=== PATIENT | female | born 1990 | race African-American/Black ===

== ENCOUNTER 2016-08-26 17:10 | Outpatient (CLI) | payer MEDICAID ==
[2016-08-26 18:10] LABS: APPEARANCE,URINE SLIGHTLY-CLOUDY; BILIRUBIN,URINE NEGATIVE (NEGATIVE); GLUCOSE, URINE NEGATIVE (NEGATIVE); KETONES,URINE 20 mg/dL (NEGATIVE); LEUKOCYTE ESTERASE,URINE TRACE (NEGATIVE); NITRITE,URINE NEGATIVE (NEGATIVE); PROTEIN,URINE 30 mg/dL (NEGATIVE); URINE SPECIFIC GRAVITY 1.029; UROBILINOGEN,URINE NEGATIVE mg/dL (<2.0)
[2016-08-26 18:23] LABS: URINE BARBITURATES SCREEN NEGATIVE; URINE METHADONE SCREEN NEGATIVE; URINE PHENCYCLIDINE SCREEN NEGATIVE
--- NOTE | 2016-08-26 20:01 | L&D Flow Sheet ---
LD Flowsheet Datetime Report Generated by CPN: 08/26/2016 20:00 Datetime: 08/26/2016 19:49 Vital Signs NBP Sys/Linda/Mean (mmHg): 101 (QS system process) : 63 (QS system process) : 77 (QS system process) Pulse: 71 (QS system process) Datetime: 08/26/2016 19:39 Vital Signs NBP Sys/Linda/Mean (mmHg): 102 (QS system process) : 59 (QS system process) : 74 (QS system process) Pulse: 82 (QS system process) Datetime: 08/26/2016 18:59 Uterine Activity Monitor Mode: External; Palpation (Bee Shaye, RN) Frequency (min): none (Bee Shaye, RN) Resting Tone (Palpate): Relaxed (Bee Shaye, RN) Assessment A Monitor Mode: External US (Bee Shaye, RN) FHR Baseline Rate : 135 (Bee Shaye, RN) Variability: Moderate 6-25 bpm (Bee Shaye, RN) Accelerations: 15X15 (Bee Shaye, RN) Decelerations: None (Bee Shaye, RN) Datetime: 08/26/2016 18:31 Vital Signs NBP Sys/Linda/Mean (mmHg): 103 (QS system process) : 71 (QS system process) : 83 (QS system process) Pulse: 65 (QS system process) Datetime: 08/26/2016 18:30 Uterine Activity Monitor Mode: External; Palpation (Esme Yang, RNC) Frequency (min): x1 (Esme Yang, RNC) Quality: Mild (Esme Yang, RNC) Duration (sec): 120 (Esme Yang, RNC) Duration Criteria: Less than Two 120 Second Contractions (Esme Yang, RNC) Pattern: Normal: <= 5 Contractions in 10 Minutes (Esme Yang, RNC) Resting Tone (Palpate): Relaxed (Esme Yang, RNC) Assessment A Monitor Mode: External US (Seme Yang, RNC) FHR Baseline Rate : 135 (Esme Yang, RNC) Variability: Moderate 6-25 bpm (Esme Yang, RNC) Accelerations: 15X15 (Esme Yang, RNC) Decelerations: None (Esme Yang, RNC) Datetime: 08/26/2016 18:16 Vital Signs NBP Sys/Linda/Mean (mmHg): 106 (QS system process) : 70 (QS system process) : 84 (QS system process) Pulse: 66 (QS system process) Datetime: 08/26/2016 18:01 Vital Signs NBP Sys/Linda/Mean (mmHg): 109 (QS system process) : 65 (QS system process) : 83 (QS system process) Pulse: 86 (QS system process) Datetime: 08/26/2016 18:00 Uterine Activity Monitor Mode: External (Esme Yang, RNC) Frequency (min): x0 (Esme Yang, RNC) Quality: Mild (Esme Yang, RNC) Duration Criteria: Less than Two 120 Second Contractions (Esme Yang, RNC) Pattern: Normal: <= 5 Contractions in 10 Minutes (Esme Yang, RNC) Resting Tone (Palpate): Relaxed (Esme Yang, RNC) Assessment A Monitor Mode: External US (Esme Yang, RNC) FHR Baseline Rate : 135 (Esme Yang, RNC) Variability: Moderate 6-25 bpm (Esme Yang, RNC) Accelerations: 15X15 (Esme Yang, RNC) Decelerations: None (Esme Yang, RNC) Datetime: 08/26/2016 17:52 Communication Communication Comments: H. Jayme CNM at bedside (Bee Shaye, RN) Datetime: 08/26/2016 17:50 Frequency (min): pt unsure about contractions, states pressure since yesterday morning (Bee Shaye, RN) Pain Pain Scale: 4 (Bee Shaye, RN) Pain Presence: Constant (Bee Shaye, RN) Pain Type: Pressure (Bee Shaye, RN) Pain Location: Perineum (Bee Shaye, RN) Pain Relief Measures: Comfort Measures (Bee Shaye, RN) Pain Assessment Comments: pt states she is only able to urinate in small amounts and that the pressure is constant (Bee Shaye, RN) Vaginal Exam Membrane Status: Intact (Bee Shaye, RN) Vaginal Bleeding: None (Bee Shaye, RN) Maternal Assessment Level of Consciousness: Fully Conscious (Bee Shaye, RN) Headache: Denies (Bee Shaye, RN) Breath Sounds, Left: Clear and Equal (Bee Shaye, RN) Breath Sounds, Right: Clear and Equal (Bee Shaye, RN) Nausea/Vomiting: Denies (Bee Shaye, RN) RUQ Epigastric Pain: Denies (Bee Shaye, RN) Datetime: 08/26/2016 17:46 Vital Signs NBP Sys/Linda/Mean (mmHg): 104 (QS system process) : 69 (QS system process) : 81 (QS system process) Pulse: 68 (QS system process)
--- NOTE | 2016-08-26 20:50 | Non Stress Test Report ---
Non Stress Test Datetime Report Generated by CPN: 08/26/2016 20:50 DEMOGRAPHIC EGA NST: 34.4 INDICATION Indication for Study: Ordered by Provider Indication for Study (NST) Other: LC URINE RESULTS Urine Protein, NST: Positive Urine Ketones - NST: Positive Urine Glucose - NST: Negative Urine Blood - NST: Negative MONITORING Monitor Explained: Monitor Explained; Test Explained; Patient Verbalized Understanding Time on Monitor: 08/26/2016 17:45 Time off Monitor: 08/26/2016 20:20 NST Duration: 155 NST INTERVENTIONS NST Interventions: PO Hydration Physician Notified NST: H. Jayme CNM BABY A: [id number] BABY A Movement : Present Contraction Frequency : none FHR Baseline : 135 Accelerations : 15X15 Decelerations : None Variability : Moderate 6-25bpm NST Review: Meets Criteria for Reactive NST NST Review and Verified By : Camilla Olivares RN Results: Reactive NST REPORT Report Trigger: Send Report
--- NOTE | 2016-08-27 04:49 | L&D Flow Sheet ---
LD Flowsheet Datetime Report Generated by CPN: 08/27/2016 04:45 Datetime: 08/26/2016 20:20 Patient Care Comments: IV d/c and pt monitor d/c. pt up getting dressed (Rosemary Chalman, RN) Datetime: 08/26/2016 20:19 Vital Signs NBP Sys/Linda/Mean (mmHg): 100 (QS system process) : 67 (QS system process) : 79 (QS system process) Pulse: 82 (QS system process) Datetime: 08/26/2016 20:17 Vaginal Exam Dilatation (cm): 0.0 (Rosemary Olivares RN) Effacement (%): 50 (Rosemary Olivares RN) Station: -3 (Rosemary Olivares RN) Exam by: Camilla Olivares RN (Rosemary Olivares RN) Datetime: 08/26/2016 20:15 Uterine Activity Monitor Mode: External; Palpation (Rosemary Chalman, RN) Frequency (min): x1 (Rosemary Chalman, RN) Quality: Mild (Rosemary Chalman, RN) Duration (sec): 50 (Rosemary Chalman, RN) Pattern: Normal: <= 5 Contractions in 10 Minutes (Rosemary Chalman, RN) Resting Tone (Palpate): Relaxed (Rosemary Chalman, RN) Assessment A Monitor Mode: External US (Rosemary Enriquetaman, RN) FHR Baseline Rate : 145 (Rosemary Enriquetaman, RN) FHR Baseline Changes: No Baseline Change (Rosemary Olivares RN) Variability: Moderate 6-25 bpm (Rosemary Olivares RN) Accelerations: 15X15 (Rosemary Olviares RN) Decelerations: None (Rosemary Olivares, RN) Datetime: 08/26/2016 20:09 Vital Signs NBP Sys/Linda/Mean (mmHg): 101 (QS system process) : 63 (QS system process) : 74 (QS system process) Pulse: 70 (QS system process) Patient Care Comments: report to Dr. Torres. Provider reviewed strip and states that pt can have SVE and be s/c home if unchanged. (Rosemary Olivares RN) Datetime: 08/26/2016 20:04 Vital Signs NBP Sys/Linda/Mean (mmHg): 115 (QS system process) : 63 (QS system process) : 82 (QS system process) Pulse: 75 (QS system process) Datetime: 08/26/2016 20:00 Uterine Activity Monitor Mode: External; Palpation (Rosemary Chalman, RN) Frequency (min): none (Rosemary Chalman, RN) Assessment A Monitor Mode: External US (Rosemary Chalman, RN) FHR Baseline Rate : 145 (Rosemary Chalman, RN) FHR Baseline Changes: Return to Previous Baseline (Rosemary Chalman, RN) Variability: Moderate 6-25 bpm (Rosemary Chalman, RN) Accelerations: 15X15 (Rosemary Chalman, RN) Decelerations: None (Rosemary Chalman, RN) Datetime: 08/26/2016 19:58 Patient Care I/O Interventions: Up to BR (Rosemary Chalman, RN) Datetime: 08/26/2016 19:49 Vital Signs NBP Sys/Linda/Mean (mmHg): 101 (QS system process) : 63 (QS system process) : 77 (QS system process) Pulse: 71 (QS system process) Datetime: 08/26/2016 19:45 Uterine Activity Monitor Mode: External; Palpation (Rosemary Chalman, RN) Frequency (min): x1 (Rosemary Chalman, RN) Quality: Mild (Rosemary Chalman, RN) Duration (sec): 70 (Rosemary Chalman, RN) Pattern: Normal: <= 5 Contractions in 10 Minutes (Rosemary Chalman, RN) Resting Tone (Palpate): Relaxed (Rosemary Chalman, RN) Assessment A Monitor Mode: External US (Rosemary Chalman, RN) FHR Baseline Rate : 150 (Rosemary Chalman, RN) Variability: Moderate 6-25 bpm (Orsemary Chalman, RN) Accelerations: 15X15 (Rosemary Chalman, RN) Decelerations: None (Rosemary Chalman, RN) Datetime: 08/26/2016 19:39 Vital Signs NBP Sys/Linda/Mean (mmHg): 102 (QS system process) : 59 (QS system process) : 74 (QS system process) Pulse: 82 (QS system process) Datetime: 08/26/2016 19:30 Uterine Activity Monitor Mode: External; Palpation (Rosemary Chalman, RN) Frequency (min): occ (Rosemary Chalman, RN) Quality: Mild (Rosemary Chalman, RN) Duration (sec): 60-70 (Rosemary Chalman, RN) Pattern: Normal: <= 5 Contractions in 10 Minutes (Rosemary Chalman, RN) Resting Tone (Palpate): Relaxed (Rosemary Chalman, RN) Assessment A Monitor Mode: External US (Rosemary Chalman, RN) FHR Baseline Rate : 145 (Rosemary Chalman, RN) FHR Baseline Changes: No Baseline Change (Rosemary Chalman, RN) Variability: Moderate 6-25 bpm (Rosemary Chalman, RN) Accelerations: 15X15 (Rosemary Chalman, RN) Decelerations: None (Rosemary Chalman, RN) Datetime: 08/26/2016 19:20 Patient Care Comments: report from Nadeen Jayme, CNM. per provider pt to have IV 1000 ml LR bolus (Rosemary Chalman, RN) Datetime: 08/26/2016 18:59 Uterine Activity Monitor Mode: External; Palpation (Bee Shaye, RN) Frequency (min): none (Bee Shaye, RN) Resting Tone (Palpate): Relaxed (Bee Shaye, RN) Assessment A Monitor Mode: External US (Bee Shaye, RN) FHR Baseline Rate : 135 (Bee Shaye, RN) Variability: Moderate 6-25 bpm (Bee Shaye, RN) Accelerations: 15X15 (Bee Shaye, RN) Decelerations: None (Bee Shaye, RN) Datetime: 08/26/2016 18:31 Vital Signs NBP Sys/Linda/Mean (mmHg): 103 (QS system process) : 71 (QS system process) : 83 (QS system process) Pulse: 65 (QS system process) Datetime: 08/26/2016 18:30 Uterine Activity Monitor Mode: External; Palpation (Esme Yang, RNC) Frequency (min): x1 (Esme Yang, RNC) Quality: Mild (Esme Yang, RNC) Duration (sec): 120 (Esme Yang, RNC) Duration Criteria: Less than Two 120 Second Contractions (Esme Yang, RNC) Pattern: Normal: <= 5 Contractions in 10 Minutes (Esme Yang, RNC) Resting Tone (Palpate): Relaxed (Esme Yang, RNC) Assessment A Monitor Mode: External US (Esme Yang, RNC) FHR Baseline Rate : 135 (Esme Yang, RNC) Variability: Moderate 6-25 bpm (Esme Yang, RNC) Accelerations: 15X15 (Esme Yang, RNC) Decelerations: None (Esme Yang, RNC) Datetime: 08/26/2016 18:16 Vital Signs NBP Sys/Linda/Mean (mmHg): 106 (QS system process) : 70 (QS system process) : 84 (QS system process) Pulse: 66 (QS system process) Datetime: 08/26/2016 18:01 Vital Signs NBP Sys/Linda/Mean (mmHg): 109 (QS system process) : 65 (QS system process) : 83 (QS system process) Pulse: 86 (QS system process) Datetime: 08/26/2016 18:00 Uterine Activity Monitor Mode: External (Esme Yang, RNC) Frequency (min): x0 (Esme Soria, RNC) Quality: Mild (Esme Soria, RNC) Duration Criteria: Less than Two 120 Second Contractions (Esme Soria, RNC) Pattern: Normal: <= 5 Contractions in 10 Minutes (Esme Sorai, RNC) Resting Tone (Palpate): Relaxed (Esme Yang, RNC) Assessment A Monitor Mode: External US (Esme Soria, RNC) FHR Baseline Rate : 135 (Esmejudith Soria, RNC) Variability: Moderate 6-25 bpm (Esmejudith Soria, RNC) Accelerations: 15X15 (Esme Soria, RNC) Decelerations: None (Esmejudith Soria, RNC) Datetime: 08/26/2016 17:52 Communication Communication Comments: H. Jayme CNM at bedside (Bee Shaye, RN) Datetime: 08/26/2016 17:50 Frequency (min): pt unsure about contractions, states pressure since yesterday morning (Bee Shaye, RN) Pain Pain Scale: 4 (Bee Shaye, RN) Pain Presence: Constant (Bee Shaye, RN) Pain Type: Pressure (Bee Shaye, RN) Pain Location: Perineum (Bee Shaye, RN) Pain Relief Measures: Comfort Measures (Bee Shaye, RN) Pain Assessment Comments: pt states she is only able to urinate in small amounts and that the pressure is constant (Bee Shaye, RN) Membrane Status: Intact (Bee Shaye, RN) Vaginal Bleeding: None (Bee Shaye, RN) Maternal Assessment Level of Consciousness: Fully Conscious (Bee Shaye, RN) Headache: Denies (Bee Shaye, RN) Breath Sounds, Left: Clear and Equal (Bee Shaye, RN) Breath Sounds, Right: Clear and Equal (Bee Shaye, RN) Nausea/Vomiting: Denies (Bee Shaye, RN) RUQ Epigastric Pain: Denies (Bee Shaye, RN) Datetime: 08/26/2016 17:46 Vital Signs NBP Sys/Linda/Mean (mmHg): 104 (QS system process) : 69 (QS system process) : 81 (QS system process) Pulse: 68 (QS system process)
--- NOTE | 2016-08-27 04:49 | Antepartum Discharge Summary ---
Antepartum DC Datetime Report Generated by CPN: 08/27/2016 04:45 DIET/ACTIVITY/RESTRICTIONS Diet: Regular (08/26/2016 20:47:Rosemary Chalman, RN) Activity: Normal Activity (08/26/2016 20:47:Rosemary Marshall, RN) TEACHING/INSTRUCTIONS/REFERRALS Instructions Given To: pt (08/26/2016 20:47:Rosemary Olivares, RN) Instructions Understood: Patient Verbalized Understanding; Support Person Verbalized Understanding (08/26/2016 20:47:Rosemary Olivares RN) Referrals: None (08/26/2016 20:47:Rosemary Olivares RN) DISCHARGE INFORMATION Discharged AMA: No (08/26/2016 20:47:Rosemary Olivares RN) Discharged To: Home (08/26/2016 20:47:Rosemary Olivares RN) Discharge Provider Name: Torres (08/26/2016 20:47:Rosemary Olivares RN) Accompanied By: sig other (08/26/2016 20:47:Rosemary Olivares RN) Discharge Method: Ambulatory (08/26/2016 20:47:Rosemary Olivares RN) Condition: Stable (08/26/2016 20:47:Rosemary Olivares RN) FOLLOW UP INFORMATION Follow Up With: Other-Annotate (08/26/2016 20:47:Rosemary Olivares RN) Follow Up On: As Scheduled (08/26/2016 20:47:Rosemary Olivares RN) Comments: pt educated on pre term labor precautions and kick counts. pt instructed to return to hospital for SROM, decreased fm, bleeding like a period or s/sx of labor. Pt verbalized understanding and agreed to POC (08/26/2016 20:47:Rosemary Olivares RN)
--- NOTE | 2016-08-27 04:49 | L&D Current Admission ---
Current Admit Datetime Report Generated by CPN: 08/27/2016 04:45 ADMISSION INFORMATION Chief Complaint: pressure and not being able to close her legs (08/26/2016 17:50:Bee Cr RN) Chief Complaint: sharp lower abdominal pain, worse when walking. Pain 3-4/5. Patient states pain is sharp and occurs every 20 minutes or so and lasts for a few seconds. Pain began around 2300 last night (07/18/2016 09:28:Blanca Jansen RN)
--- NOTE | 2016-08-27 04:49 | L&D General Admission ---
General Admit Datetime Report Generated by CPN: 08/27/2016 04:45 INFORMATION Patient Age: 25 (07/18/2016 09:07:QS system process) EDC: 10/03/2016 00:00 (07/18/2016 09:22:Blanca Jansen RN) : 6 (07/18/2016 09:22:Blanca Jansen RN) Para: 4 (08/26/2016 20:47:Rosemary Olivares RN) Para: 4 (07/18/2016 09:22:Blanca Jansen RN) Baby, Number in Womb: 1 (08/26/2016 20:47:Rosemary Olivares RN) CARE Primary Raise Drill Operator: [facility] (07/18/2016 09:22:Blanca Jansen RN) Adequate Care: No (07/18/2016 09:22:Blanca Jansen RN) Height (in): 63 (08/26/2016 17:51:QS system process) Height (in): 63 (08/26/2016 17:45:QS system process) Height (in): 63 (08/26/2016 17:32:QS system process) Height (in): 63 (07/18/2016 09:17:QS system process) ALLERGIES Medication Allergy: No (07/18/2016 09:22:Blanca Jansen RN) Medication Allergies: No Known Allergies (08/26/2016) (08/26/2016 17:51:QS system process) Medication Allergies: No Known Allergies (07/18/2016) (07/18/2016 09:17:QS system process) Medication Allergies: No Known Allergies (02/09/2016) (07/18/2016 09:07:QS system process) Latex Allergy: No Latex Allergies (07/18/2016 09:22:Blanca Jansen RN) Food Allergies: denies (07/18/2016 09:22:Blanca Jansen RN) Environmental Allergies: denies (07/18/2016 09:22:Blanca Jansen RN) COMMUNICATION Primary Language: Georgian (07/18/2016 09:22:Blanca Jansen RN) Medical Tx Preferred Language: Georgian (07/18/2016 09:22:Blanca Jansen RN) DEMOGRAPHICS Address: [address] [place] [address], [address] [address] (07/18/2016 09:07:QS system process) Zipcode: [address] (07/18/2016 09:07:QS system process) Home (07/18/2016 09:07:QS system process) Work (07/18/2016 09:07:QS system process) SSN: [id number] (07/18/2016 09:07:QS system process) Next of Kin Name: THAIS ALVARENGA (07/18/2016 09:07:QS system process) Next of Kin (07/18/2016 09:07:QS system process) Next of Kin Relationship: OR (07/18/2016 09:07:QS system process) Date of : 1990 (07/18/2016 09:07:QS system process) Marital Status: Single (07/18/2016 09:07:QS system process) Sex: Female (07/18/2016 09:07:QS system process) Race: (07/18/2016 09:07:QS system process) Ethnicity: Non- or (07/18/2016 09:07:QS system process) Taoism: None (07/18/2016 09:07:QS system process) DRUG AND ALCOHOL USE Alcohol: No (07/18/2016 09:22:Blanca Jansen RN) Cigarettes: Current Some Day Smoker. [id number] (07/18/2016 09:22:Blanca Jansen RN) Cocaine: No (07/18/2016 09:22:Blanca Jansen RN) Other Illicit Drugs: No (07/18/2016 09:22:Blanca Jansen RN) VACCINE HISTORY Influenza Vaccine: No (07/18/2016 09:22:Blanca Jansen RN) Pneumococcal Vaccine: No (07/18/2016 09:22:Blanca Jansen RN) Tetanus Vaccine: No (07/18/2016 09:22:Blanca Jansen RN) Tdap Vaccine: No (07/18/2016 09:22:Blanca Jansen RN) Hepatitis B Vaccine: No (07/18/2016 09:22:Blanca Jansen RN) Senior Business Analyst: [facility] [facility] (07/18/2016 09:22:Blanca Jansen RN) Feeding Preference: Formula (07/18/2016 09:22:Blanca Jansen RN) Circumcision: Yes (07/18/2016 09:22:Blanca Jansen RN) Classes Attended: No (07/18/2016 09:22:Blanca Jansen RN) Tubal Ligation: Yes (07/18/2016 09:22:Blanca Jansen RN) Consent: N/A (07/18/2016 09:22:Blanca Jansen RN) Consent Signed: N/A (07/18/2016 09:22:Blanca Jansen RN) Pain Management Plans: Epidural (07/18/2016 09:22:Blanca Jansen RN) Plans for Labor and Delivery: None (07/18/2016 09:22:Blanca Jansen RN) Support Person: Jose Graham (07/18/2016 09:22:Blanca Jansen RN) Support Person Relationship: Significant Other (07/18/2016 09:22:Blanca Jansen RN) Cultural/Spritual Practice: No (07/18/2016 09:22:Blanca Jansen RN) Spir/Cult Dietary Needs: No (07/18/2016 09:22:Blanca Jansen RN) LIVING SITUATION/DISCHARGE PLAN Living Arrangements: House (07/18/2016 09:22:Blanca Jansen RN) Adequate Access to:: Electric; Heat; Refrigeration; Plumbing/Running water; Phone; Transportation (07/18/2016 09:22:Blanca Jansen RN) WIC Program: Yes (07/18/2016 09:22:Blanca Jansen RN) Discharge Office Runner Person: Jose (07/18/2016 09:22:Blanca Jansen RN) Person to Help after Discharge: Jose (07/18/2016 09:22:Blanca Jansen RN) Currently Using Commun Resources: No (07/18/2016 09:22:Blanca Jansen RN) Outside Agency/Measurement And Sensing Technician: No (07/18/2016 09:22:Blanca Jansen RN) Car Seat for Discharge: No (07/18/2016 09:22:Blanca Jansen RN) Adoption Requested: No (07/18/2016 09:22:Blanca Jansen RN) Pt Contact w/ Post : N/A (07/18/2016 09:22:Blanca Jansen RN) OB/PREVIOUS HISTORY History of Previous : No (07/18/2016 09:22:Blanca Jansen RN) History of Gestational Diabetes: No (07/18/2016 09:22:Blanca Jansen RN) History of PIH: No (07/18/2016 09:22:Blanca Jansen RN) History of Incompetent Cervix: No (07/18/2016 09:22:Blanca Jansen RN) History of Placenta Previa/Abrup: No (07/18/2016 09:22:Blanca Jansen RN) History of Macrosomia: No (07/18/2016 09:22:Blanca Jansen RN) History of IUGR: No (07/18/2016 09:22:Blanca Jansen RN) History of Hemorrhage: No (07/18/2016 09:22:Blanca Jansen RN) History of Loss/Stillborn: No (07/18/2016 09:22:Blanca Jansen RN) History of : No (07/18/2016 09:22:Blanca Jansen RN) History of D (Rh) Sensitization: No (07/18/2016 09:22:Blanca Jansen RN) History Recurrent Loss/Stillborn: No (07/18/2016 09:22:Blnaca Jansen RN) History Depression/PP Depression: Yes (07/18/2016 09:22:Blanca Jansen RN) History of Uterine Anomaly/MICHAEL: No (07/18/2016 09:22:Blanca Jansen RN) History of Infertility: No (07/18/2016 09:22:Blanca Jansen RN) History of ART Treatment: No (07/18/2016 09:22:Blanca Jansen RN) History of MICHAEL: No (07/18/2016 09:22:Blanca Jansen RN) MEDICAL HISTORY Med Hx Diabetes: No (07/18/2016 09:22:Blanca Jansen RN) Med Hx Hypertension: No (07/18/2016 09:22:Blanca Jansen RN) Med Hx Heart Disease: No (07/18/2016 09:22:Blanca Jansen RN) Med Hx Autoimmune Disorder: No (07/18/2016 09:22:Blanca Jansen RN) Med Hx Kidney Disease/UTI: No (07/18/2016 09:22:Blanca Jansen RN) Med Hx Neurologic/Epilepsy: No (07/18/2016 09:22:Blanca Jansen RN) Med Hx Psychiatric Disorders: No (07/18/2016 09:22:Blanca Jansen RN) Med Hx Hepatitis/Liver Disease: No (07/18/2016 09:22:Blanca Jansen RN) Med Hx Varicosities/Phlebitis: No (07/18/2016 09:22:Blanca Jansen RN) Med Hx Thyroid Dysfunction: No (07/18/2016 09:22:Blanca Jansen RN) Med Hx Trauma/Violence: No (07/18/2016 09:22:Blanca Jnasen RN) Med Hx Blood Transfusion: No (07/18/2016 09:22:Blanca Jansen RN) Med Hx Pulmonary (Asthma,TB): No (07/18/2016 09:22:Blanca Jansen RN) Med Hx Breast: No (07/18/2016 09:22:Blanca Jansen RN) Med Hx COMBAT SYSTEMS ENGINEER Surgery: No (07/18/2016 09:22:Blanca Jansen RN) Med Hx Hospitalization/Surgery: Yes (07/18/2016 09:22:Blanca Jansen RN) Med Hx Anesthetic Complications: No (07/18/2016 09:22:Blanca Jansen RN) Med Hx Abnormal Pap Smear: No (07/18/2016 09:22:Blanca Jansen RN) Other Medical Diseases: No (07/18/2016 09:22:Blanca Jansen, RN) Med Hx Significant Family Hx: No (07/18/2016 09:22:Blanca Jansen RN) Details of Med/Surg Hx: D_C: 2013 (07/18/2016 09:22:Blanca Jansen RN) INFECTIOUS HISTORY Inf Hx Gonorrhea: No (07/18/2016 09:22:Blanca Jansen RN) Inf Hx Chlamydia: No (07/18/2016 09:22:Blanca Jansen RN) Inf Hx Syphilis: No (07/18/2016 09:22:Blanca Jansen RN) Inf Hx HIV/AIDS: No (07/18/2016 09:22:Blanca Jansen RN) Inf Hx Human Papilloma Virus: No (07/18/2016 09:22:Blanca Jansen RN) Inf Hx Pt/Partner Genital Herpes: No (07/18/2016 09:22:Blanca Jansen RN) Inf Hx Tuberculosis/Exposure: No (07/18/2016 09:22:Blanca Jansen RN) Inf Hx Hepatitis B,C: No (07/18/2016 09:22:Blanca Jansen RN) Inf Hx Rash or Viral Illness: No (07/18/2016 09:22:Blanca Jansen RN) GENETIC HISTORY Gen Hx Age >=35 at TREVOR: No (07/18/2016 09:22:Blanca Jansen RN) Gen Hx Thalassemia: No (07/18/2016 09:22:Blanca Jansen RN) Gen Hx Congenital Heart Defect: No (07/18/2016 09:22:Blanca Jansen RN) Gen Hx Neural Tube Defect: No (07/18/2016 09:22:Blanca Jansen RN) Gen Hx Down's Syndrome: No (07/18/2016 09:22:Blanca Jansen RN) Gen Hx Grover-Sachs: No (07/18/2016 09:22:Blanca Jansen RN) Gen Hx Casimiro: No (07/18/2016 09:22:Blanca Jansen RN) Gen Hx Familial Dysautonomia: No (07/18/2016 09:22:Blanca Jansen RN) Gen Hx Sickle Cell Disease/Trait: No (07/18/2016 09:22:Blanca Jansen RN) Gen Hx Hemophilia/Blood Disorder: No (07/18/2016 09:22:Blanca Jansen RN) Gen Hx Muscular Dystrophy: No (07/18/2016 09:22:Blanca Jansen RN) Gen Hx Cystic Fibrosis: No (07/18/2016 09:22:Blanca Jansen RN) Gen Hx Huntingtons Chorea: No (07/18/2016 09:22:Blanca Jansen RN) Gen Hx Mental Retardation/Autism: No (07/18/2016 09:22:Blanca Jansen RN) Gen Hx Tested for Fragile X: No (07/18/2016 09:22:Blanca Jansen RN) Gen Hx Other Inher/Chromosomal: No (07/18/2016 09:22:Blanca Jansen RN) Gen Hx Maternal Metabolic DO: No (07/18/2016 09:22:Blanca Jansen RN) Gen Hx Pt Father or FOB Defect: No (07/18/2016 09:22:Blanca Jansen RN) Gen Hx Other Genetic History: No (07/18/2016 09:22:Blanca Jansen RN) Gen Hx Drugs/Meds since LMP: No (07/18/2016 09:22:Blanca Jansen RN)
--- NOTE | 2016-08-27 04:49 | L&D Discharge Summary ---
OB Discharge Summary Datetime Report Generated by CPN: 08/27/2016 04:45 DISCHARGE DIAGNOSIS Diagnosis/Symptoms: False Labor Gestation: 34.4 Number of Babies in Womb: 1 Parity: 4 DIET/ACTIVITY/RESTRICTIONS Diet: Regular Activity: Normal Activity TEACHING/INSTRUCTIONS/REFERRALS Instructions Given To: pt Instructions Understood: Patient Verbalized Understanding; Support Person Verbalized Understanding Referrals: None DISCHARGE INFORMATION Discharged AMA: No Discharged To: Home Discharge Provider Name: Torres Accompanied By: sig other Discharge Method: Ambulatory Condition: Stable FOLLOW UP INFORMATION Follow Up With: Other-Annotate Follow Up On: As Scheduled Comments: pt educated on pre term labor precautions and kick counts. pt instructed to return to hospital for SROM, decreased fm, bleeding like a period or s/sx of labor. Pt verbalized understanding and agreed to POC
--- NOTE | 2016-08-27 04:49 | L&D Admission Assessment ---
LD ADM ASMT Datetime Report Generated by CPN: 08/27/2016 04:45 WEIGHT Weight (lb): 167 (08/26/2016 17:32:QS system process) Weight (kg): 75.9 (08/26/2016 17:32:QS system process) BMI: 29.6 (08/26/2016 17:32:QS system process) PAIN Pain Scale: 4 (08/26/2016 17:50:Bee Cr RN) Pain Presence: Constant (08/26/2016 17:50:Bee Cr RN) Pain Type: Pressure (08/26/2016 17:50:Bee Cr RN) Pain Location: Perineum (08/26/2016 17:50:Bee Cr RN) Pain Related to Contraction: Unsure (08/26/2016 17:50:Bee Cr RN) Pain Comments: pt states she is only able to urinate in small amounts and that the pressure is constant (08/26/2016 17:50:Bee Cr RN) CONTRACTIONS Frequency (min): x1 (08/26/2016 20:15:Rosemary Olivares RN) Frequency (min): none (08/26/2016 20:00:Rosemary Olivares RN) Frequency (min): x1 (08/26/2016 19:45:Rosemary Olivares RN) Frequency (min): occ (08/26/2016 19:30:Rosemary Olivares RN) Frequency (min): none (08/26/2016 18:59:Bee Cr RN) Frequency (min): x1 (08/26/2016 18:30:ALVIN Ribera) Frequency (min): x0 (08/26/2016 18:00:ALVIN Ribera) Frequency (min): pt unsure about contractions, states pressure since yesterday morning (08/26/2016 17:50:Bee Cr RN) Duration (sec): 50 (08/26/2016 20:15:Rosemary Olivares RN) Duration (sec): 70 (08/26/2016 19:45:Rosemary Olivares RN) Duration (sec): 60-70 (08/26/2016 19:30:Rosemary Olivares RN) Duration (sec): 120 (08/26/2016 18:30:ALVIN Ribera) Quality: Mild (08/26/2016 20:15:Rosemary Olivares RN) Quality: Mild (08/26/2016 19:45:Rosemary Olivares RN) Quality: Mild (08/26/2016 19:30:Rosemary Olivares RN) Quality: Mild (08/26/2016 18:30:ALVIN Ribera) Quality: Mild (08/26/2016 18:00:ALVIN Ribera) Pattern: Normal: <= 5 Contractions in 10 Minutes (08/26/2016 20:15:Rosemary Olivares RN) Pattern: Normal: <= 5 Contractions in 10 Minutes (08/26/2016 19:45:Rosemary Olivares RN) Pattern: Normal: <= 5 Contractions in 10 Minutes (08/26/2016 19:30:Rosemary Olivares RN) Pattern: Normal: <= 5 Contractions in 10 Minutes (08/26/2016 18:30:ALVIN Ribera) Pattern: Normal: <= 5 Contractions in 10 Minutes (08/26/2016 18:00:ALVIN Ribera) Resting Tone [place]: Relaxed (08/26/2016 20:15:Rosemary Olivares RN) Resting Tone [place]: Relaxed (08/26/2016 19:45:Rosemary Olivares RN) Resting Tone [place]: Relaxed (08/26/2016 19:30:Rosemary Olivares RN) Resting Tone [place]: Relaxed (08/26/2016 18:59:Bee rC RN) Resting Tone [place]: Relaxed (08/26/2016 18:30:ALVIN Ribera) Resting Tone [place]: Relaxed (08/26/2016 18:00:ALVIN Ribera) VAGINAL EXAM Dilatation (cm): 0.0 (08/26/2016 20:17:Rosemary Olivares RN) Effacement (%): 50 (08/26/2016 20:17:Rosemary Olivares RN) Station: -3 (08/26/2016 20:17:Rosemary Olivares RN) Membranes Status: Intact (08/26/2016 17:50:Bee Cr RN) NEURO Level of Consciousness: Fully Conscious (08/26/2016 17:50:Bee Cr RN) Headache: Denies (08/26/2016 17:50:Bee Cr RN) Dizziness: No (08/26/2016 17:50:Bee Cr, RN) Blurred Vision: No (08/26/2016 17:50:Bee Cr, RN) Extremity Numbness/Tingling : None (08/26/2016 17:50:Bee Cr RN) Extremity Movement: Full Range of Motion (08/26/2016 17:50:Bee Cr RN) CARDIOVASCULAR Heart Rhythm: Regular (08/26/2016 17:50:Bee Shaye, RN) Nailbeds: [place] (08/26/2016 17:50:Bee Shaye, RN) Capillary Refill: Less than 3 Seconds (08/26/2016 17:50:Bee Shaye, RN) Lower Extremities Edema: None (08/26/2016 17:50:Bee Shaye, RN) Lower Extremities Edema Degree: None (08/26/2016 17:50:Bee Shaye, RN) Upper Extremities Edema: None (08/26/2016 17:50:Bee Shaye, RN) Upper Extremities Edema Degree: None (08/26/2016 17:50:Bee Shaye, RN) Facial Edema: None (08/26/2016 17:50:Bee Shaye, RN) RESPIRATORY Respiratory Effort: Unlabored; Regular Rhythm; Equal Expansion (08/26/2016 17:50:Bee Shaye, RN) Breath Sounds, Left: Clear and Equal (08/26/2016 17:50:Bee Shaye, RN) Breath Sounds, Right: Clear and Equal (08/26/2016 17:50:Bee Shaye, RN) Cough Productivity: None (08/26/2016 17:50:Bee Shaye, RN) GASTROINTESTINAL Nausea/Vomiting: Denies (08/26/2016 17:50:Bee Cr, AARON) Bowel Sounds: Normoactive (08/26/2016 17:50:Bee Cr RN) RUQ Epigastric Pain: Denies (08/26/2016 17:50:Bee Cr RN) Bowel Patterns: Soft, Formed Stool (08/26/2016 17:50:Bee Cr RN) Hemorrhoids: None (08/26/2016 17:50:Bee Cr RN) Diet Type: Regular diet (08/26/2016 17:50:Bee Cr RN) Last Meal: 08/26/2016 15:00 (08/26/2016 17:50:Bee Cr RN) GENITOURINARY Bladder: Nondistended (08/26/2016 17:50:Bee Cr, AARON) Frequency of Urination: No (08/26/2016 17:50:Bee Cr, RN) Urination Burning: No (08/26/2016 17:50:Bee Cr RN) CVA Tenderness: No (08/26/2016 17:50:Bee Cr RN) Vaginal Bleeding: None (08/26/2016 17:50:Bee Cr RN) Vaginal Discharge Amount: None (08/26/2016 17:50:Bee Cr RN) Vaginal Discharge Color: N/A (08/26/2016 17:50:Bee Cr, AARON) INTEGUMENTARY Skin Color: Normal for Race (08/26/2016 17:50:Bee Cr RN) Skin Temperature: Warm (08/26/2016 17:50:Bee Cr RN) Skin Moisture: Dry (08/26/2016 17:50:Bee Cr RN) MARY SKIN ASSESSMENT Mary Scale Sensory Perception: No Impairment- Responds to verbal commands. Has no sensory deficit which would limit ability to feel or voice pain or discomfort (08/26/2016 17:50:Bee Cr RN) Mary Scale Moisture: Rarely Moist- Skin is usually dry. Linen only requires changing at routine intervals (08/26/2016 17:50:Bee Cr RN) Mary Scale Activity: Walks Frequently- Walks outside the room at least twice a day and inside room at least every 2 hours during the day. (08/26/2016 17:50:Bee Cr RN) Mary Scale Mobility: No Limitations- Makes major and frequent changes in position without assistance (08/26/2016 17:50:Bee Cr RN) Mary Scale Nutrition: Excellent- Eats most of every meal. Never refuses a meal. Usually eats a total of 4 or more servings of meat and dairy products. Occasionally eats between meals. Does not require supplementation (08/26/2016 17:50:Bee Cr RN) Mary Scale Friction and Shear: No Apparent Problem- Moves in bed and in chair independently and has sufficient muscle strength to lift up completely during move. Maintains good position in bed or chair at all times (08/26/2016 17:50:Bee Cr RN) Mary Scale Total: 23 (08/26/2016 17:50:QS system process) Mary Scale Risk: No Risk of Pressure Ulcer Noted at this Time (08/26/2016 17:50:QS system process) SUPPORT Family Support: Significant Other supportive, at bedside frequently (08/26/2016 17:50:Bee Cr RN) Emotional State: Calm/Relaxed (08/26/2016 17:50:Bee Cr RN) SAFETY Call [facility] Within Reach: Yes (08/26/2016 17:50:Bee Cr RN) Side Rails Up: Yes (08/26/2016 17:50:Bee Cr RN) Bed Wheels Locked: Yes (08/26/2016 17:50:Bee Cr RN) Arm Bands Present: Yes (08/26/2016 17:50:Bee Cr RN) Isolation: [place] (08/26/2016 17:50:Bee Cr RN) BABY A FHR Baseline Rate (bpm) Baby A: 145 (08/26/2016 20:15:Rosemary Olivares RN) FHR Baseline Rate (bpm) Baby A: 145 (08/26/2016 20:00:Rosemary Olivares RN) FHR Baseline Rate (bpm) Baby A: 150 (08/26/2016 19:45:Rosemary Olivares RN) FHR Baseline Rate (bpm) Baby A: 145 (08/26/2016 19:30:Rosemary Olivares RN) FHR Baseline Rate (bpm) Baby A: 135 (08/26/2016 18:59:Bee Cr RN) FHR Baseline Rate (bpm) Baby A: 135 (08/26/2016 18:30:ALVIN Ribera) FHR Baseline Rate (bpm) Baby A: 135 (08/26/2016 18:00:ALVIN Ribera) Variability Baby A: Moderate 6-25 bpm (08/26/2016 20:15:Rosemary Olivares RN) Variability Baby A: Moderate 6-25 bpm (08/26/2016 20:00:Rosemary Olivares RN) Variability Baby A: Moderate 6-25 bpm (08/26/2016 19:45:Rosemary Olivares RN) Variability Baby A: Moderate 6-25 bpm (08/26/2016 19:30:Rosemary Olivares RN) Variability Baby A: Moderate 6-25 bpm (08/26/2016 18:59:Bee Cr RN) Variability Baby A: Moderate 6-25 bpm (08/26/2016 18:30:ALVIN Ribera) Variability Baby A: Moderate 6-25 bpm (08/26/2016 18:00:ALVIN Ribera) Accelerations Baby A: 15X15 (08/26/2016 20:15:Rosemary Olivares RN) Accelerations Baby A: 15X15 (08/26/2016 20:00:Rosemary Olivares RN) Accelerations Baby A: 15X15 (08/26/2016 19:45:Rosemary Olivares RN) Accelerations Baby A: 15X15 (08/26/2016 19:30:Rosemary Olivares RN) Accelerations Baby A: 15X15 (08/26/2016 18:59:Bee Cr RN) Accelerations Baby A: 15X15 (08/26/2016 18:30:ALVIN Ribera) Accelerations Baby A: 15X15 (08/26/2016 18:00:ALVIN Ribera) Decelerations Baby A: None (08/26/2016 20:15:Rosemary Olivares RN) Decelerations Baby A: None (08/26/2016 20:00:Rosemary Olivares RN) Decelerations Baby A: None (08/26/2016 19:45:Rosemary Olivares RN) Decelerations Baby A: None (08/26/2016 19:30:Rosemary Olivares RN) Decelerations Baby A: None (08/26/2016 18:59:Bee Cr RN) Decelerations Baby A: None (08/26/2016 18:30:ALVIN Ribera) Decelerations Baby A: None (08/26/2016 18:00:ALVIN Ribera)
== END 2016-08-26 21:14 | disposition home or self-care (01) ==
LOC: LC 17:10
PROVIDERS: ATTEND Obstetrics & Gynecology
PROC: 4A1HXCZ Monitoring of Products of Conception, Cardiac Rate, External Approach (ICD-10-PCS; principal; 2016-08-26)
DX: O47.03 False labor before 37 completed weeks of gestation, third trimester (principal); Z3A.34 34 weeks gestation of pregnancy
CPT/HCPCS: 59025; 87086; 81001; 80307; G0480 ×2

== ENCOUNTER 2016-09-27 14:12 | Inpatient (IN) | payer MEDICAID ==
[2016-09-27 15:07] LABS: APPEARANCE,URINE CLEAR; BILIRUBIN,URINE NEGATIVE (NEGATIVE); GLUCOSE, URINE NEGATIVE (NEGATIVE); KETONES,URINE NEGATIVE (NEGATIVE); LEUKOCYTE ESTERASE,URINE NEGATIVE (NEGATIVE); NITRITE,URINE NEGATIVE (NEGATIVE); PROTEIN,URINE NEGATIVE (NEGATIVE); URINE SPECIFIC GRAVITY 1.005; UROBILINOGEN,URINE NEGATIVE mg/dL (<2.0)
[2016-09-27 15:13] LABS: AMNISURE (ROM) NEGATIVE (NEGATIVE)
[2016-09-27 15:23] LABS: URINE BARBITURATES SCREEN NEGATIVE; URINE METHADONE SCREEN NEGATIVE; URINE OPIATES LOW NEGATIVE; URINE PHENCYCLIDINE SCREEN NEGATIVE
--- NOTE | 2016-09-27 16:01 | L&D Flow Sheet ---
LD Flowsheet Datetime Report Generated by CPN: 09/27/2016 16:00 Datetime: 09/27/2016 15:28 Communication Communication Comments: Monitors removed for pt to go to U/S (Eugenia Bennett, RN) Datetime: 09/27/2016 15:24 Vital Signs NBP Sys/Linda/Mean (mmHg): 105 (QS system process) : 74 (QS system process) : 83 (QS system process) Pulse: 89 (QS system process) Datetime: 09/27/2016 14:58 Uterine Activity Frequency (min): pt states 5-10 minutes apart (Eugenia Bennett, RN) Pain Pain Scale: 3 (Eugenia Bennett, RN) Pain Presence: Intermittent (Eugenia Bennett, RN) Pain Type: Contraction (Eugenia Bennett, RN) Pain Location: Abdomen (Eugenia Bennett, RN) Vaginal Bleeding: None (Eugenia Bennett, RN) Maternal Assessment Level of Consciousness: Fully Conscious (Eugenia Bennett, RN) DTR's/Clonus: DTRs 2+; No Clonus (Eugenia Donald, RN) Headache: Denies (Eugenia Donald, RN) Breath Sounds, Left: Clear and Equal (Eugenia Donald, RN) Breath Sounds, Right: Clear and Equal (Eugenia Donald, RN) Nausea/Vomiting: Denies (Eugenia Bennett, RN) RUQ Epigastric Pain: Denies (Eugenia Donald, RN) Teaching Instructional Method: Verbal; Patient Instructed; Family/Support Person Instructed; Verbalized Understanding (Eugenia Bennett RN) Plan of Care: Plan of Care Discussed (Eugenia Bennett RN) Unit Routine: [place] to Room; Call [facility]; Bed; Handwashing; Monitoring; Bathroom Privileges (Eugenia Bennett RN) Datetime: 09/27/2016 14:54 Vital Signs NBP Sys/Linda/Mean (mmHg): 110 (QS system process) : 75 (QS system process) : 87 (QS system process) Pulse: 77 (QS system process) Respirations: 16 (Eugenia Bennett RN) Temperature (F): 98.4 (Eugenia Bennett, RN) Temperature (C): 36.9 (QS system process) Datetime: 09/27/2016 14:45 Vaginal Exam Dilatation (cm): 3.5 (Eugenia Bennett RN) Effacement (%): 50 (Eugenia Bennett RN) Station: -2 (Eugenia Bennett RN) Exam by: Eagle Stacy CNM (Eugenia Bennett RN) Datetime: 09/27/2016 14:40 Communication Communication Comments: Amnisure, GBS, GC/Chlam, wet prep collected and sent (Eugenia Bennett RN)
[2016-09-27 16:39] LABS: CHLAM PCR NOT DETECTED (NOT DETECT)
[2016-09-27] MEDS ORDERED: PENICILLIN G POTASSIUM 5,000,000 UNIT in DEXTROSE 5%-WATER 100 ML IV ONE (17:25)
--- NOTE | 2016-09-27 18:01 | L&D Flow Sheet ---
LD Flowsheet Datetime Report Generated by CPN: 09/27/2016 18:00 Datetime: 09/27/2016 17:55 NBP Sys/Linda/Mean (mmHg): 105 (QS system process) : 70 (QS system process) : 82 (QS system process) Pulse: 70 (QS system process) Datetime: 09/27/2016 17:35 Procedures: Consents Signed (Eugenia Bennett, RN) Datetime: 09/27/2016 17:30 Monitor Mode: External (Eugenia Bennett, RN) Frequency (min): 5-7 (Eugenia Bennett, RN) Quality: Mild (Eugenia Bennett, RN) Duration (sec): 80-100 (Eugenia Bennett, RN) Resting Tone (Palpate): Relaxed (Eugenia Bennett, RN) Monitor Mode: External US (Eugenia Bennett, RN) FHR Baseline Rate : 135 (Eugenia Bennett, RN) Variability: Moderate 6-25 bpm (Eugeniacas Bennett, RN) Accelerations: 15X15 (Eugeniacas Bennett, RN) Decelerations: None (Eugenia Bennett, RN) Datetime: 09/27/2016 17:24 NBP Sys/Linda/Mean (mmHg): 107 (QS system process) : 69 (QS system process) : 81 (QS system process) Pulse: 81 (QS system process) Datetime: 09/27/2016 17:16 IV/Blood Work: IV Started; IV Bolus Started (Eugeniacas Bennett, RN) Datetime: 09/27/2016 17:00 Monitor Mode: External; Palpation (Esme Yang, RNC) Frequency (min): 3-7 (Esme Yang, RNC) Quality: Mild (Esme Yang, RNC) Duration (sec): 50-80 (Esme Yang, RNC) Duration Criteria: Less than Two 120 Second Contractions (Esme Yang, RNC) Pattern: Normal: <= 5 Contractions in 10 Minutes (Esme Yang, RNC) Resting Tone (Palpate): Relaxed (Esme Yang, RNC) Monitor Mode: External US (Esme Yang, RNC) FHR Baseline Rate : 135 (Esme Yang, RNC) Variability: Moderate 6-25 bpm (Esme Yang, RNC) Accelerations: 15X15 (Esme Yang, RNC) Decelerations: None (Esme Yang, RNC) Datetime: 09/27/2016 16:56 NBP Sys/Linda/Mean (mmHg): 109 (QS system process) : 82 (QS system process) : 91 (QS system process) Pulse: 84 (QS system process) Datetime: 09/27/2016 16:47 Communication Comments: Eagle Stacy CNM at bedside discussing POC for IOL for growth restriction. Explained risks and benefits. Pt verbalizes understanding (Eugenia Bennett RN) Datetime: 09/27/2016 16:30 Monitor Mode: External; Palpation (ALVIN Ribera) Frequency (min): 5-7 (ALVIN Ribera) Quality: Mild (ALVIN Ribera) Duration (sec): 60-90 (ALVIN Ribera) Duration Criteria: Less than Two 120 Second Contractions (ALVIN Ribera) Pattern: Normal: <= 5 Contractions in 10 Minutes (Esme Soria, RNC) Resting Tone (Palpate): Relaxed (Esme Soria, RNC) FHR Baseline Rate : 135 (Esme Soria, RNC) Variability: Moderate 6-25 bpm (Esme Yang, RNC) Accelerations: 15X15 (Esme Yang, RNC) Decelerations: None (Esme Yang, RNC) Datetime: 09/27/2016 16:24 NBP Sys/Linda/Mean (mmHg): 109 (QS system process) : 73 (QS system process) : 86 (QS system process) Pulse: 89 (QS system process) Datetime: 09/27/2016 16:16 Communication Comments: Pt returned to unit from U/S (Eugenia Bennett RN)
[2016-09-27] MEDS ORDERED: PENICILLIN G-K 5 MILLION UNIT VIAL ONE ×2 (18:18→22:13)
[2016-09-27] MEDS ORDERED: OXYTOCIN/NORMAL SALINE 0 UNIT/0 ML RTUINJ ONE (18:18)
[2016-09-27] MEDS: OXYTOCIN/NORMAL SALINE 1,000 ML IV PRN (18:34)
[2016-09-27 18:55] LABS: HEMATOCRIT 30.3 % (36.0-47.0); HEMOGLOBIN 9.8 g/dL (12.0-15.5); HGB HCT DIFFERENCE -0.9; MEAN CORPUSCULAR HEMOGLOBIN 22.7 pg (27.0-33.4); MEAN CORPUSCULAR HGB CONC 32.2 g/dL (32.0-36.0); MEAN CORPUSCULAR VOLUME 71 fl (80-97); RED CELL DISTRIBUTION WIDTH 15.6 % (11.5-14.0)
--- NOTE | 2016-09-27 20:00 | L&D Flow Sheet ---
LD Flowsheet Datetime Report Generated by CPN: 09/27/2016 20:00 Datetime: 09/27/2016 19:54 NBP Sys/Linda/Mean (mmHg): 112 (QS system process) : 68 (QS system process) : 87 (QS system process) Pulse: 75 (QS system process) Datetime: 09/27/2016 19:45 Respirations: 18 (Ivon Fields) Monitor Mode: External; Palpation (Ivon Fields) Monitor Interventions for UA: Strum Adjusted (Ivon Fields) Frequency (min): 5-6 (Ivon Fields) Quality: Mild/Moderate (Ivon Fields) Duration (sec): 40-60 (Ivon Fields) Resting Tone (Palpate): Relaxed (Ivon Fields) Monitor Mode: External US (Ivon Fields) Monitor Interventions for FHR: Ultrasound Adjusted (Ivon Fields) FHR Baseline Rate : 140 (Ivon Fields) Variability: Moderate 6-25 bpm (Ivon Fields) Accelerations: 15X15 (Ivon Fields) Decelerations: None (Ivon Fields) Pitocin (milliunit): Pitocin Increased to (milliunits) @ (Annotations: 8) (Ivon Fields) Patient Position/Activity: Left Lateral (Ivon Fields) Datetime: 09/27/2016 19:31 Comments: rn at the bedside for fhr monitor adjustmernt and maternal repositioning (Ivon Fields) Datetime: 09/27/2016 19:30 Respirations: 18 (Ivon Fields) Monitor Mode: External; Palpation (Ivon Fields) Monitor Interventions for UA: Strum Adjusted (Ivon Fields) Frequency (min): 4-7 (Ivon Fields) Quality: Mild/Moderate (Ivon Fields) Duration (sec): 60-70 (Ivon Fields) Resting Tone (Palpate): Relaxed (Ivon Fields) FHR Baseline Changes: Unable to Determine (Ivon Fields) Pitocin (milliunit): Pitocin Increased to (milliunits) @ (Annotations: 6) (Ivon Fields) Patient Position/Activity: Left Lateral (Ivon Fields) Datetime: 09/27/2016 19:23 Communication Comments: Bedside report given to Camilla Fields RN (Eugenia Bennett RN) Datetime: 09/27/2016 19:21 Patient Care Comments: patient up to the restroom (Ivon Fields) Datetime: 09/27/2016 19:15 Respirations: 18 (Ivon Fields) Monitor Mode: External; Palpation (Ivon Fields) Monitor Interventions for UA: Strum Adjusted (Ivon Fields) Frequency (min): 4-5 (Ivon Fields) Quality: Mild/Moderate (Ivon Fields) Duration (sec): 60-70 (Ivon Fields) Resting Tone (Palpate): Relaxed (Ivon Fields) Monitor Mode: External US (Ivon Fields) Monitor Interventions for FHR: Ultrasound Adjusted (Ivon Fields) FHR Baseline Rate : 145 (Ivon Fields) Variability: Moderate 6-25 bpm (Ivon Fields) Accelerations: 15X15 (Ivon Fields) Decelerations: None (Ivon Fields) Pitocin (milliunit): Pitocin Remains (milliunits) @ (Annotations: 4) (Ivon Fields) Patient Position/Activity: Left Tilt (Ivon Fields) Datetime: 09/27/2016 19:00 Monitor Mode: External; Palpation (Eugenia Bennett RN) Quality: Mild (Eugenia Bennett RN) Resting Tone (Palpate): Relaxed (Eugenia Bennett RN) Contraction Comments: contractions not tracing on monitor (Eugenia Bennett RN) Monitor Mode: External US (Eugenia Bennett RN) FHR Baseline Rate : 135 (Eugenia Bennett RN) Variability: Moderate 6-25 bpm (Eugenia Bennett RN) Accelerations: 15X15 (Eugenia Bennett RN) Decelerations: None (Eugenia Bennett RN) Pitocin (milliunit): Pitocin Increased to (milliunits) @ 4 (Eugenia Bennett RN) Datetime: 09/27/2016 18:54 NBP Sys/Linda/Mean (mmHg): 128 (QS system process) : 86 (QS system process) : 101 (QS system process) Pulse: 70 (QS system process) Datetime: 09/27/2016 18:45 Monitor Mode: External (Eugenia Bennett RN) Resting Tone (Palpate): Relaxed (Eugenia Bennett RN) Contraction Comments: contractions not tracing on monitor (Eugenia Bennett RN) Monitor Mode: External US (Eugenia Bennett RN) FHR Baseline Rate : 135 (Eugenia Bennett RN) Variability: Moderate 6-25 bpm (Eugenia Bennett RN) Accelerations: 15X15 (Eugenia Bennett RN) Decelerations: None (Eugenia Bennett RN) Pitocin (milliunit): Pitocin Remains (milliunits) @ 2 (Eugenia Bennett RN) Datetime: 09/27/2016 18:35 I/O Interventions: Up to BR (Eugenia Bennett RN) Datetime: 09/27/2016 18:34 Antibiotics: Penicillin IV (Units) @ [id number] (Eugenia Bennett RN) Datetime: 09/27/2016 18:30 Monitor Mode: External; Palpation (Eugenia Bennett RN) Frequency (min): 5-7 (Eugenia Bennett RN) Quality: Mild (Eugenia Bennett RN) Duration (sec): 80-90 (Eugenia Bennett RN) Resting Tone (Palpate): Relaxed (Eugenia Bennett RN) Monitor Mode: External US (Eugenia Bennett RN) FHR Baseline Rate : 145 (Eugenia Bennett RN) Variability: Moderate 6-25 bpm (Eugenia Bennett RN) Accelerations: 15X15 (Eugenia Bennett RN) Decelerations: None (Eugenia Bennett RN) Pitocin (milliunit): Pitocin Started (milliunits) @ 2; Pitocin 20 Units in 1000ml NS (Eugenia Bennett RN) Datetime: 09/27/2016 18:25 Monitor Interventions for FHR: Ultrasound Adjusted (Eugenia Bennett, RN) Datetime: 09/27/2016 18:24 NBP Sys/Linda/Mean (mmHg): 112 (QS system process) : 73 (QS system process) : 88 (QS system process) Pulse: 72 (QS system process) Datetime: 09/27/2016 18:01 Monitor Interventions for UA: Strum Adjusted (Eugenia Bennett RN) Monitor Interventions for FHR: Ultrasound Adjusted (Eugenia Bennett RN) Comments: pt sitting straight up. tracing maternal (Eugenia Bennett RN) Datetime: 09/27/2016 18:00 Monitor Mode: External (Eugenia Bennett RN) Frequency (min): 5-6 (Eugenia Bennett RN) Quality: Mild (Eugenia Bennett RN) Duration (sec): 80-90 (Eugenia Bennett RN) Resting Tone (Palpate): Relaxed (Eugenia Bennett RN) Monitor Mode: External US (Eugenia Bennett RN) FHR Baseline Rate : 145 (Eugenia Bennett RN) Variability: Moderate 6-25 bpm (Eugenia Bennett RN) Accelerations: 15X15 (Eugenai Bennett RN) Decelerations: None (Eugenia Bennett RN)
--- NOTE | 2016-09-27 22:00 | L&D Flow Sheet ---
LD Flowsheet Datetime Report Generated by CPN: 09/27/2016 22:00 Datetime: 09/27/2016 21:54 NBP Sys/Linda/Mean (mmHg): 88 (QS system process) : 52 (QS system process) : 63 (QS system process) Pulse: 65 (QS system process) Datetime: 09/27/2016 21:38 Monitor Interventions for UA: Sholes Adjusted (Mary Beth Lattibeaudeir, RN) Datetime: 09/27/2016 21:29 Respirations: 18 (Ivon Fields) Monitor Interventions for UA: Sholes Adjusted (Ivon Fields) Contraction Comments: rn at the bedside for toco adjustment and maternal repositioning (Ivon Fields) FHR Baseline Changes: Unable to Determine (Ivon Fields) Comments: rn at the bedside for fhr monitor adjustment (Ivon Fields) Patient Position/Activity: Right Lateral (Ivon Fields) Datetime: 09/27/2016 21:25 Pitocin (milliunit): Pitocin Increased to (milliunits) @ (Annotations: 16 ) (Ivon Fields) Datetime: 09/27/2016 21:24 NBP Sys/Linda/Mean (mmHg): 98 (QS system process) : 54 (QS system process) : 72 (QS system process) Pulse: 75 (QS system process) Datetime: 09/27/2016 21:19 Patient Care Comments: patient up to the restroom (Ivon Fields) Datetime: 09/27/2016 21:15 Respirations: 18 (Ivon Fields) Monitor Mode: External; Palpation (Ivon Fields) Monitor Interventions for UA: Sholes Adjusted (Ivon Fields) Frequency (min): 2-7 (Ivon Fields) Quality: Mild/Moderate (Ivon Fields) Duration (sec): 40-60 (Ivon Fields) Resting Tone (Palpate): Relaxed (Ivon Fields) Monitor Mode: External US (Ivon Fields) Monitor Interventions for FHR: Ultrasound Adjusted (Ivon Fields) FHR Baseline Rate : 140 (Ivon Fields) FHR Baseline Changes: No Baseline Change (Ivon Fields) Variability: Moderate 6-25 bpm (Ivon Fields) Accelerations: 15X15 (Ivon Fields) Decelerations: None (Ivon Fields) Patient Position/Activity: Left Lateral (Ivon Fields) Datetime: 09/27/2016 21:00 Respirations: 18 (Ivon Fields) Monitor Mode: External; Palpation (Ivon Fields) Monitor Interventions for UA: Sholes Adjusted (Ivon Fields) Frequency (min): 2-4 (Ivon Fields) Quality: Mild/Moderate (Ivon Fields) Duration (sec): 50-70 (Ivon Fields) Resting Tone (Palpate): Relaxed (Ivon Fields) Comments: rn at the bedside for fhr monitor adjustment (Ivon Fields) Pitocin (milliunit): Pitocin Increased to (milliunits) @ (Annotations: 14 ) (Ivon Fields) Patient Position/Activity: Left Lateral (Ivon Fields) Datetime: 09/27/2016 20:54 NBP Sys/Linda/Mean (mmHg): 103 (QS system process) : 72 (QS system process) : 81 (QS system process) Pulse: 76 (QS system process) Datetime: 09/27/2016 20:45 Pitocin (milliunit): Pitocin Remains (milliunits) @ (Annotations: 12) (Ivon Fields) Datetime: 09/27/2016 20:43 Patient Care Comments: patient up to the restroom (Ivon Fields) Datetime: 09/27/2016 20:42 Respirations: 18 (Ivon Fields) Monitor Mode: External; Palpation (Ivon Fields) Monitor Interventions for UA: Sholes Adjusted (Ivon Fields) Frequency (min): 2-5 (Ivon Fields) Quality: Mild/Moderate (Ivon Fields) Duration (sec): 50-70 (Ivon Fields) Resting Tone (Palpate): Relaxed (Ivon Fields) Monitor Mode: External US (Ivon Fields) Monitor Interventions for FHR: Ultrasound Adjusted (Ivon Fields) FHR Baseline Rate : 150 (Ivon Fields) Variability: Moderate 6-25 bpm (Ivon Fields) Accelerations: 15X15 (Ivon Fields) Decelerations: None (Ivon Fields) Patient Position/Activity: Left Tilt (Ivon Fields) Datetime: 09/27/2016 20:30 Respirations: 18 (Ivon Fields) Monitor Mode: External; Palpation (Ivon Fields) Monitor Interventions for UA: Sholes Adjusted (Ivon Fields) Frequency (min): 2-5 (Ivon Fields) Quality: Mild/Moderate (Ivon Fields) Duration (sec): 50-70 (Ivon Fields) Resting Tone (Palpate): Relaxed (Ivon Fields) Monitor Mode: External US (Ivon Fields) Monitor Interventions for FHR: Ultrasound Adjusted (Ivon Fields) FHR Baseline Rate : 150 (Ivon Fields) Variability: Moderate 6-25 bpm (Ivon Fields) Accelerations: 15X15 (Ivon Fields) Decelerations: None (Ivon Fields) Pitocin (milliunit): Pitocin Increased to (milliunits) @ (Annotations: 12 ) (Ivon Fields) Patient Position/Activity: Left Lateral (Ivon Fields) Datetime: 09/27/2016 20:24 NBP Sys/Linda/Mean (mmHg): 116 (QS system process) : 74 (QS system process) : 88 (QS system process) Pulse: 74 (QS system process) Datetime: 09/27/2016 20:15 Pitocin (milliunit): Pitocin Remains (milliunits) @ (Annotations: 10) (Ivon Fields) Datetime: 09/27/2016 20:14 Respirations: 18 (Ivno Fields) Monitor Mode: External; Palpation (Ivon Fields) Monitor Interventions for UA: Sholes Adjusted (Ivon Fields) Frequency (min): 4-5 (Ivon Fields) Quality: Mild/Moderate (Ivon Fields) Duration (sec): 40-60 (Ivon Fields) Resting Tone (Palpate): Relaxed (Ivon Fields) Monitor Mode: External US (Ivon Fields) Monitor Interventions for FHR: Ultrasound Adjusted (Ivon Fields) FHR Baseline Rate : 150 (Ivon Fields) Variability: Moderate 6-25 bpm (Ivon Fields) Accelerations: 15X15 (Ivon Fields) Decelerations: None (Ivon Fields) Patient Position/Activity: Left Lateral (Ivon Fields) Datetime: 09/27/2016 20:04 Patient Care Comments: patient up to the restroom (Ivon Fields) Datetime: 09/27/2016 20:00 Respirations: 18 (Ivon Fields) Monitor Mode: External; Palpation (Ivon Fields) Monitor Interventions for UA: Sholes Adjusted (Ivon Fields) Frequency (min): 3-5 (Ivon Fields) Quality: Mild/Moderate (Ivon Fields) Duration (sec): 40-60 (Ivon Fields) Resting Tone (Palpate): Relaxed (Ivon Fields) Monitor Mode: External US (Ivon Fields) Monitor Interventions for FHR: Ultrasound Adjusted (Ivon Fields) FHR Baseline Rate : 140 (Ivon Fields) FHR Baseline Changes: No Baseline Change (Ivon Fields) Variability: Moderate 6-25 bpm (Ivon Fields) Accelerations: 15X15 (Ivon Fields) Decelerations: None (Ivon Fields) Pitocin (milliunit): Pitocin Increased to (milliunits) @ (Annotations: 10) (Ivon Fields) Patient Position/Activity: Left Lateral (Ivon Fields)
[2016-09-27] MEDS: PENICILLIN G POTASSIUM 2,500,000 UNIT in DEXTROSE 5%-WATER 50 ML IV SCH ×2 (22:25→23:48)
[2016-09-27] MEDS ORDERED: FENTANYL/BUPIVACAINE/NS/PF 200 MCG/100 ML RTUINJ EPI ONE (22:41)
[2016-09-27] MEDS ORDERED: BUPIVACAINE HCL 0.25 % INJ/PF (2.5 MG/1 ML) 30 ML VIAL ONE (22:41)
[2016-09-27] MEDS ORDERED: OXYTOCIN/NORMAL SALINE 20 UNIT/1,000 ML RTUINJ ONE (22:41)
[2016-09-27] MEDS ORDERED: MISOPROSTOL 0.2 MG TABLET ONE (22:41)
[2016-09-27] MEDS ORDERED: EPHEDRINE SULFATE INJ 50 MG/1 ML AMPULE ONE (22:41)
[2016-09-27] MEDS ORDERED: LIDOCAINE 1% INJ-PF (10 MG/ML) 30 ML SDV ONE (22:41)
[2016-09-27] MEDS ORDERED: RINGERS SOLUTION,LACTATED 1,000 ML IV PRN (22:52)
[2016-09-27] MEDS ORDERED: RINGERS SOLUTION,LACTATED 1,000 ML IV ONE (22:52)
[2016-09-27] MEDS ORDERED: EPHEDRINE SULFATE INJ 50 MG/1 ML AMPULE IV ONE (22:53)
[2016-09-27] MEDS ORDERED: FENTANYL/BUPIVACAINE/NS/PF 100 ML EPI PRN (22:53)
[2016-09-27] MEDS ORDERED: EPHEDRINE SULFATE INJ 50 MG/1 ML AMPULE IV PRN (22:53)
[2016-09-27] MEDS ORDERED: BENZOIN/ALOE VERA/STORAX/TOLU TINCTURE 60 ML TP PRN (22:53)
[2016-09-27] MEDS ORDERED: BUPIVACAINE HCL 0.25 % INJ/PF (2.5 MG/1 ML) 30 ML VIAL INFIL ONE (22:53)
[2016-09-28] MEDS ORDERED: PROMETHAZINE HCL 25 MG SUPP.RECT PR PRN (00:42)
[2016-09-28] MEDS ORDERED: MAGNESIUM HYDROXIDE SUSP 30 ML UDCUP PO PRN (00:42)
[2016-09-28] MEDS ORDERED: ZOLPIDEM TARTRATE 5 MG TABLET PO PRN (00:42)
[2016-09-28] MEDS ORDERED: ACETAMINOPHEN 650 MG SUPP.RECT PR PRN (00:42)
[2016-09-28] MEDS ORDERED: PROMETHAZINE HCL INJ 25 MG/1 ML VIAL IV PRN (00:42)
[2016-09-28] MEDS ORDERED: NA PHOS,M-B/NA PHOS,DI-BA (ADULT) 133 ML ENEMA PR PRN (00:42)
[2016-09-28] MEDS ORDERED: GLYCERIN/WITCH HAZEL LEAF 1 EACH MED..PAD TP PRN (00:42)
[2016-09-28] MEDS ORDERED: ACETAMINOPHEN WITH CODEINE #3 TABLET PO PRN (00:42)
[2016-09-28] MEDS ORDERED: DIPH/PERTUSS(ACELL)/TETANUS VAC/PF 0.5 ML SYR (>=10YO) IM PRN (00:42)
[2016-09-28] MEDS ORDERED: BENZOCAINE/MENTHOL AEROSOL SPRAY 56 ML TOP PRN (00:42)
[2016-09-28] MEDS ORDERED: DIPHENHYDRAMINE HCL 25 MG CAPSULE PO PRN (00:42)
[2016-09-28] MEDS ORDERED: PSEUDOEPHEDRINE HCL 30 MG TABLET PO PRN (00:42)
[2016-09-28] MEDS ORDERED: DIBUCAINE 1% OINTMENT 28 GM TP PRN (00:42)
[2016-09-28] MEDS ORDERED: PROMETHAZINE HCL 25 MG TABLET PO PRN (00:42)
[2016-09-28] MEDS ORDERED: OXYTOCIN/NORMAL SALINE 20 UNIT/1,000 ML RTUINJ IV PRN (00:42)
[2016-09-28] MEDS: OXYTOCIN/NORMAL SALINE 1,000 ML IV PRN (01:14)
[2016-09-28] MEDS: PENICILLIN G POTASSIUM 2,500,000 UNIT in DEXTROSE 5%-WATER 50 ML IV SCH (01:14)
--- NOTE | 2016-09-28 02:12 | Delivery Summary ---
Del Sum A-C Datetime Report Generated by CPN: 09/28/2016 02:12 ADMISSION DATA Chief Complaint: Uterine Contractions Chief Complaint Comments: EFW today suspect IUGR Indication for Induction Comment: suspecte IUGR 39.1 TREVOR by LMP c/w 16 wk sono here Admission Impression Comments: Limited PNC THC use Tobacco abuse Admit Provider Comments: had two visits at health dept was disengaged from [facility] two sonos here previously pos for THC on multiple visits Hx of 20 wk IUFD All other normal vag deliveries, largest 7lbs, no complications Had PNC with other pregnancies, no complications DELIVERY PERSONNEL Delivery Doctor:: Lindsay Stevenson MD Labor and Delivery Nurse:: Ivon Fields RNdividend clerk Nurse:: Leana Almonte RN Nursery Nurse:: Patience Duong RN MSN Housecleaner Floor/APPLICATION ANALYST: Aaron Ertel, APPLICATION ANALYST MATERNAL INFORMATION Delivery Anesthesia: Epidural Medications After Delivery: Pitocin Drip 20 Units/1000ml NSS Estimated Blood Loss (ml): 150 Maternal Complications: Other Other Maternal Complications: Abnormal pap, no care Provider Comments: Pt progressed to over intact perineum of female infant with apgars 9 and 9. Head delivered OA. Nuchal cord x4 reduced. Shoulders and body delivered. PASTRYCOOK and OP bulb suctioned. Cord clamped and cut. Placenta spont and intact. LABOR SUMMARY EDC: 10/03/2016 00:00 No. Babies in Womb: 1 Attempted: No Labor Anesthesia: Epidural LABOR INFORMATION Reason for Induction: Intrauterine Growth Retardation Onset of Labor: 09/27/2016 22:34 Complete Dilatation: 09/28/2016 00:06 Oxytocin: Induction Group B Beta Strep: unknown Antibiotics # of Doses: 2 Antibiotics Time of Last Dose: 2225 Name of Antibiotic Given: Penicillin Steroids Given: None Reason Steroids Not Administered: Not Applicable MEMBRANES Membranes Rupture Method: Artificial Rupture of Membranes: 09/27/2016 22:34 Length of Rupture (hr): 1.65 Amniotic Fluid Color: Clear Amniotic Fluid Amount: Small Amniotic Fluid Odor: Normal STAGES OF LABOR Stage 1 hr: 1 Stage 1 min: 32 Stage 2 hr: 0 Stage 2 min: 7 Stage 3 hr: 0 Stage 3 min: 2 Total Time in Labor hr: 1 Total Time in Labor min: 41 VAGINAL DELIVERY Episiotomy: None Laceration Extension: N/A Laceration Type: None Laceration Repair: Not Applicable Sponge Count Correct: N/A Sharps Count Correct: N/A CSECTION DELIVERY Primary Indication: N/A Secondary Indication: N/A CSection Incidence: N/A Labor: N/A Elective: N/A CSection Incision: N/A BABY A INFORMATION Infant Delivery Date/Time: 09/28/2016 00:13 Method of Delivery: Vaginal Born in Route : No : N/A Forceps: N/A Vacuum Extraction: N/A Shoulder Dystocia : No PRESENTATION/POSITION BABY A Presentation: Cephalic Cephalic Presentation: Vertex Vertex Position: Occipital Anterior Breech Presentation: N/A PLACENTA INFORMATION BABY A Placenta Delivery Time : 09/28/2016 00:15 Placenta Method of Delivery: Spontaneous Placenta Status: Delivered SCORES BABY A Heart Rate 1 min: >100 bpm Resp Effort 1 min: Good Cry Reflex Irritability 1 min: Cough or Sneeze or Pulls Away Muscle Tone 1 min: Active Motion Color 1 min: Body [place], Extremities Blue Resuscitation Effort 1 min: Tactile Stimulation SCORE 1 MIN: 9 Heart Rate 5 min: >100 bpm Resp Effort 5 min: Good Cry Reflex Irritability 5 min: Cough or Sneeze or Pulls Away Muscle Tone 5 min: Active Motion Color 5 min: Body [place], Extremities Blue Resuscitation Effort 5 min: Tactile Stimulation SCORE 5 MIN: 9 INFORMATION BABY A Gestational Age at Delivery: 39.2 Gestational Status: Full Term- 39- 40.6 Weeks Outcome : Liveborn Condition : Stable Sex: Female IDENTIFICATION BABY A Infant Verification Date/Time: 09/28/2016 00:24 ID Band Number: [id number] Mother's Name Verified: Yes RN Verifying : Idania AARON Campbell Additional Verifying Personnel: Nithin Denny CNA/ WEIGHT/LENGTH BABY A Birthweight (gm): 2755 Weight (lb): 6 Weight (oz): 1 Infant Length (in): 18.50 Infant Length (cm): 46.99 CORD INFORMATION BABY A No. Cord Vessels: 3 Nuchal Cord : loose nuchal x 4 Cord Blood Taken: Yes-For Eval (Mom's Blood Type - or O+) Suction: Mouth; Nose ASSESSMENT BABY A Infant Complications: None Physical Findings at Delivery: Within Normal Limits Respirations: Appears Normal Skin to Skin: Yes Skin to Skin Time (min): 10 Drug Abuse Worker/ALS Called : No Care By: K. Duong, RN Transferred To: Remains with Mother BABY B INFORMATION : N/A SIGNATURES Signature: with User ID: [email or web address] : I was personally available for consultation and serving as supervising physician for the P.
--- NOTE | 2016-09-28 02:51 | Admission Physical ---
Datetime Report Generated by CPN: 09/28/2016 02:51 CURRENT ADMISSION Chief Complaint: Uterine Contractions Chief Complaint Other: EFW today suspect IUGR Indication for Induction- Other: suspecte IUGR 39.1 TREVOR by LMP c/w 16 wk sono here Admit Impression- Other: Limited PNC THC use Tobacco abuse Admit Plan- Other: Hx of baby with ? GBS infection menengitis was hospitalized for 1 month ALLERGIES Medication Allergies: No Medication Allergies: No Known Allergies (09/27/2016) Latex: No Latex Allergies Food Allergies: denies Environmental Allergies: denies OBSTETRICAL HISTORY EDC: 10/03/2016 00:00 : 6 Para: 5 Term: 4 : 1 SAB: 0 IAB: 0 Ectopic: 0 Livin Cesareans: 0 VBACs: 0 Multiple Births: 0 Gestational Diabetes: No Rh Sensitization: No Incompetent Cervix: No MICHAEL: No Infertility: No ART Treatment: No Uterine Anomaly: No IUGR: No Hx Previous C/S: No Macrosomia: No Hx Loss/Stillborn: No PIH: No Hx : No Placenta Previa/Abruption: No Depression/PP Depression: Yes PTL/PROM: No Post Hemorrhage: No Current Procedures: Ultrasound Obstetrical History Comments: G1: 2004, [place] G2: 2005 no complications G3: 2006 no complications G4: 2008, baby viral meningitis after sent home from hospital G5: 2014 stillborn (20 some weeks per patient) G6: current, limited PNC SEE RECORDS Alcohol: No Marijuana : Yes Cocaine: No Other Illicit Drugs: No Cigarettes: Current Some Day Smoker. 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, depression - not medicated INFECTIOUS HISTORY Gonorrhea: No Genital Herpes: No Chlamydia: No Tuberculosis: No Syphilis: No Hepatitis: No HIV/AIDS Exposure: No Rash or Viral Illness: No HPV: No PHYSICAL EXAM General: Normal HEENT: Deferred Neurologic: Deferred Thyroid: Deferred Heart: Deferred Lungs: Normal Breast: Deferred Back: Deferred Abdomen: Normal Genitourinary Exam: Normal Extremities: Normal DTRs: Deferred Pelvic Type: Adequate Vital Signs: Reviewed; Within Normal Limits VAGINAL EXAM Dilatation: 4 Effacement: 50 Station: -2 Contraction Comments: irregular MEMBRANES Membranes: Intact FETUS A EGA: 39.1 Monitoring: External US FHR- Baseline: 150 Variability: Moderate 6-25bpm Accelerations: 15X15 FHR Category: Category II Presentation: Vertex [facility]os [facility] previously pos for THC on multiple visits Hx of 20 wk IUFD All other normal vag deliveries, largest 7lbs, no complications Had PNC with other pregnancies, no complications PLANS FOR LABOR AND DELIVERY Labor and Delivery: None Pain Management: Epidural Feeding Preference: Both Benefit of Breast Feed Discussed: Yes Circumcision: Yes INFORMED CONSENT Assignment: Lindsay Stevenson MD Signature: with User ID: [email or web address] : with User ID: [email or web address]
[2016-09-28] MEDS: ACETAMINOPHEN WITH CODEINE #3 TABLET PO PRN ×2 (03:46→11:11)
[2016-09-28] MEDS: IBUPROFEN 800 MG TABLET PO SCH ×3 (05:15→21:32)
--- NOTE | 2016-09-28 07:00 | L&D Flow Sheet ---
LD Flowsheet Datetime Report Generated by CPN: 09/28/2016 07:00 Datetime: 09/28/2016 02:41 NBP Sys/Linda/Mean (mmHg): 115 (QS system process) : 73 (QS system process) : 89 (QS system process) Pulse: 62 (QS system process) Datetime: 09/28/2016 02:26 NBP Sys/Linda/Mean (mmHg): 120 (QS system process) : 75 (QS system process) : 92 (QS system process) Pulse: 65 (QS system process) Datetime: 09/28/2016 02:11 NBP Sys/Linda/Mean (mmHg): 115 (QS system process) : 76 (QS system process) : 91 (QS system process) Pulse: 65 (QS system process) Datetime: 09/28/2016 01:56 NBP Sys/Linda/Mean (mmHg): 124 (QS system process) : 69 (QS system process) : 88 (QS system process) Pulse: 74 (QS system process) Datetime: 09/28/2016 01:50 Temperature (F): 98.6 (Ivon Fields) Temperature (C): 37.0 (QS system process) Temperature Route: Oral (Ivon Fields) Pain Scale: 0 (Ivon Fields) Pain Presence: None/Denies (Ivon Fields) Datetime: 09/28/2016 01:29 NBP Sys/Linda/Mean (mmHg): 99 (QS system process) : 62 (QS system process) : 75 (QS system process) Pulse: 62 (QS system process) Datetime: 09/28/2016 00:59 NBP Sys/Linda/Mean (mmHg): 105 (QS system process) : 66 (QS system process) : 81 (QS system process) Pulse: 61 (QS system process) Datetime: 09/28/2016 00:29 NBP Sys/Linda/Mean (mmHg): 107 (QS system process) : 64 (QS system process) : 80 (QS system process) Pulse: 74 (QS system process) Datetime: 09/28/2016 00:26 NBP Sys/Linda/Mean (mmHg): 107 (QS system process) : 60 (QS system process) : 79 (QS system process) Pulse: 68 (QS system process) Datetime: 09/28/2016 00:25 Stage of : 98.7 (Ivon Fields) Temperature (F): 98.7 (Ivon Fields) Temperature (C): 37.1 (QS system process) Temperature Route: Oral (Ivon Fields) Pain Scale: 0 (Ivon Fields) Pain Presence: None/Denies (Ivon Fields) Datetime: 09/28/2016 00:19 NBP Sys/Linda/Mean (mmHg): 210 (QS system process) : 93 (QS system process) : 117 (QS system process) Pulse: 89 (QS system process) Datetime: 09/28/2016 00:16 Stage of : Recovery (Ivon Fields) Datetime: 09/28/2016 00:14 NBP Sys/Linda/Mean (mmHg): 135 (QS system process) : 64 (QS system process) : 92 (QS system process) Pulse: 77 (QS system process) Datetime: 09/28/2016 00:13 Comments: vaginal delivery of baby girl (Ivon Fields) Datetime: 09/28/2016 00:10 NBP Sys/Linda/Mean (mmHg): 144 (QS system process) : 78 (QS system process) : 97 (QS system process) Pulse: 106 (QS system process) Datetime: 09/28/2016 00:09 Pushing: Coached on Pushing; Urge to Push (Ivon Fields) Pushing Position: Pushing with Contractions (Ivon Fields) Pushing Progress: Descent with Pushing (Ivon Fields) Stage 2 Comments: Eagle Duong RN at bedside for delivery. (Mary Beth Jacksonleslie, RN) Datetime: 09/28/2016 00:08 Communication Comments: Called Nsy for delivery IUGR. (Mary Beth Campbell, RN) Datetime: 09/28/2016 00:07 Pushing: Coached on Pushing; Urge to Push (Ivon Fields) Pushing Position: Pushing with Contractions (Ivon Fields) Pushing Progress: Descent with Pushing (Ivon Fields) Stage 2 Comments: karla and Dr Stevenson remain at the bedside for delivery (Ivon Fields) Datetime: 09/28/2016 00:06 Dilatation (cm): 10.0 (Ivon Fields) Effacement (%): 100 (Ivon Fields) Station: 2 (Ivon Fields) Exam by: Dr Stevenson (Ivon Fields) Datetime: 09/28/2016 00:05 NBP Sys/Linda/Mean (mmHg): 117 (QS system process) : 70 (QS system process) : 88 (QS system process) Pulse: 90 (QS system process) Datetime: 09/28/2016 00:03 Dilatation (cm): 9.0 (Ivon Fields) Effacement (%): 90 (Ivon Fields) Station: 1 (Ivon Fields) Exam by: Dr Stevenson (Ivon Fields) Vaginal Exam Comments: Dr Stevenson at the bedside for eval (Ivon Fields) Datetime: 09/28/2016 00:00 NBP Sys/Linda/Mean (mmHg): 115 (QS system process) : 72 (QS system process) : 89 (QS system process) Pulse: 67 (QS system process) Datetime: 09/27/2016 23:55 NBP Sys/Linda/Mean (mmHg): 111 (QS system process) : 67 (QS system process) : 83 (QS system process) Pulse: 69 (QS system process) Datetime: 09/27/2016 23:53 Comments: rn at the bedside for eval (Ivon Fields) Datetime: 09/27/2016 23:49 NBP Sys/Linda/Mean (mmHg): 99 (QS system process) : 54 (QS system process) : 71 (QS system process) Pulse: 64 (QS system process) Datetime: 09/27/2016 23:45 NBP Sys/Linda/Mean (mmHg): 104 (QS system process) : 61 (QS system process) : 77 (QS system process) Pulse: 68 (QS system process) Monitor Mode: Internal; Palpation (Ivon Fields) Monitor Interventions for UA: [place] Adjusted (Ivon Fields) Frequency (min): 1.5-2 (Ivon Fields) Quality: Moderate to Strong (Ivon Fields) Duration (sec): 50-70 (Ivon Fields) Resting Tone (Palpate): Relaxed (Ivon Fields) Monitor Mode: External US (Ivon Fields) Monitor Interventions for FHR: Ultrasound Adjusted (Ivon Fields) FHR Baseline Rate : 120 (Ivon Fields) Variability: Moderate 6-25 bpm (Ivon Fields) Accelerations: 15X15 (Ivon Fields) Decelerations: None (Ivon Fields) Patient Position/Activity: Right Tilt (Ivon Fields) Datetime: 09/27/2016 23:39 NBP Sys/Linda/Mean (mmHg): 100 (QS system process) : 56 (QS system process) : 73 (QS system process) Pulse: 65 (QS system process) Datetime: 09/27/2016 23:35 NBP Sys/Linda/Mean (mmHg): 102 (QS system process) : 66 (QS system process) : 78 (QS system process) Pulse: 71 (QS system process) Datetime: 09/27/2016 23:30 NBP Sys/Linda/Mean (mmHg): 102 (QS system process) : 71 (QS system process) : 82 (QS system process) Pulse: 71 (QS system process) Decelerations: Variable (Ivon Fields) Dilatation (cm): 6.0 (Ivon Fields) Effacement (%): 60 (Ivon Fields) Station: 0 (Ivon Fields) Exam by: Cas Fields RN (Ivon Fields) Pitocin (milliunit): Pitocin Remains (milliunits) @ (Annotations: 16 ) (Ivon Fields) Datetime: 09/27/2016 23:29 Contraction Comments: mvu [id number] (Ivon Fields) Datetime: 09/27/2016 23:28 Respirations: 18 (Ivon Fields) Monitor Mode: External; Palpation (Ivon Fields) Monitor Interventions for UA: [place] Adjusted (Ivon Fields) Frequency (min): 1.5-2 (Ivon Fields) Quality: Moderate (Ivon Fields) Duration (sec): 50-60 (Ivon Fields) Resting Tone (Palpate): Relaxed (Ivon Fields) Monitor Mode: External US (Ivon Fields) Monitor Interventions for FHR: Ultrasound Adjusted (Ivon Fields) FHR Baseline Rate : 135 (Ivon Fields) FHR Baseline Changes: No Baseline Change (Ivon Fields) Variability: Moderate 6-25 bpm (Ivon Fields) Accelerations: 15X15 (Ivon Fields) Decelerations: None (Ivon Fields) Patient Position/Activity: Right Tilt (Ivon Fields) Datetime: 09/27/2016 23:25 NBP Sys/Linda/Mean (mmHg): 103 (QS system process) : 66 (QS system process) : 80 (QS system process) Pulse: 73 (QS system process) Datetime: 09/27/2016 23:19 NBP Sys/Linda/Mean (mmHg): 125 (QS system process) : 78 (QS system process) : 95 (QS system process) Pulse: 64 (QS system process) Contraction Comments: IUPC adjusted and reset. (Mary Beth Chengtibzaneir, RN) Datetime: 09/27/2016 23:15 Contraction Comments: rn at the bedside for monitor adjustments (Ivon Fields) FHR Baseline Changes: Unable to Determine (Ivon Fields) Pitocin (milliunit): Pitocin Remains (milliunits) @ (Annotations: 16 ) (Ivon Fields) Datetime: 09/27/2016 23:14 NBP Sys/Linda/Mean (mmHg): 136 (QS system process) : 81 (QS system process) : 103 (QS system process) Pulse: 68 (QS system process) Datetime: 09/27/2016 23:10 Anesthesia Plans: Epidural (Ivon Fields) Epidural Positioning: Sitting (Ivon Fields) Epidural Procedure Other: Pump Started (Ivon Fields) Datetime: 09/27/2016 23:09 NBP Sys/Linda/Mean (mmHg): 138 (QS system process) : 75 (QS system process) : 99 (QS system process) Pulse: 80 (QS system process) Pulse: 70 (QS system process) SpO2 (%): 100 (QS system process) Datetime: 09/27/2016 23:08 Anesthesia Plans: Epidural (Ivon Fields) Epidural Positioning: Sitting (Ivon Fields) Epidural Procedure: Cath Placed (Ivon Fields) Datetime: 09/27/2016 23:06 Anesthesia Plans: Epidural (Ivon Fields) Epidural Positioning: Sitting (Ivon Fields) Epidural Procedure: Loading Dose (Ivon Fields) Datetime: 09/27/2016 23:04 NBP Sys/Linda/Mean (mmHg): 140 (QS system process) : 79 (QS system process) : 104 (QS system process) Pulse: 75 (QS system process) SpO2 (%): 99 (QS system process) Datetime: 09/27/2016 23:00 Monitor Mode: Internal; Palpation (Ivon Fields) Monitor Interventions for UA: [place] Adjusted (Ivon Fields) Frequency (min): 1.5-2 (Ivon Fields) Quality: Moderate (Ivon Fields) Duration (sec): 50-60 (Ivon Fields) Resting Tone (Palpate): Relaxed (Ivon Fields) FHR Baseline Changes: Unable to Determine (Ivon Fields) Comments: patient sitting for epidural (Ivon Fields) Pitocin (milliunit): Pitocin Remains (milliunits) @ (Annotations: 16) (Ivon Fields) Procedure Type: epidural (Ivon Fields) Procedure Verify: Correct Patient Identity; Correct Side and Site are Marked; Accurate Procedure Consent Form; Agreement on Procedure to be Done; Correct Patient Position; Relevant Images and Results are Properly Labeled and Displayed; Safety Precautions Based on Patient History or Medication Use (Ivon Fields) Datetime: 09/27/2016 22:59 NBP Sys/Linda/Mean (mmHg): 138 (QS system process) : 83 (QS system process) : 103 (QS system process) Pulse: 68 (QS system process) Pulse: 80 (QS system process) SpO2 (%): 100 (QS system process) Datetime: 09/27/2016 22:57 Anesthesia Comments: Dr. Cain at bedside for epidural (Mary Beth Campbell RN) Datetime: 09/27/2016 22:54 NBP Sys/Linda/Mean (mmHg): 131 (QS system process) : 78 (QS system process) : 96 (QS system process) Pulse: 67 (QS system process) SpO2 (%): 99 (QS system process) Datetime: 09/27/2016 22:49 Pulse: 91 (QS system process) SpO2 (%): 98 (QS system process) Datetime: 09/27/2016 22:48 Anesthesia Plans: Epidural (Ivon Fields) Epidural Positioning: Sitting (Ivon Fields) Datetime: 09/27/2016 22:46 Respirations: 18 (Ivon Fields) Monitor Mode: Internal; Palpation (Ivon Fields) Monitor Interventions for UA: IUPC Inserted (Ivon Fields) Frequency (min): 1.5-2.5 (Ivon Fields) Quality: Moderate to Strong (Ivon Fields) Duration (sec): 50-70 (Ivon Fields) Resting Tone (Palpate): Relaxed (Ivon Fields) Monitor Mode: External US (Ivon Fields) Monitor Interventions for FHR: Ultrasound Adjusted (Ivon Fields) FHR Baseline Rate : 145 (Ivon Fields) FHR Baseline Changes: No Baseline Change (Ivon Fields) Variability: Moderate 6-25 bpm (Ivon Fields) Accelerations: 15X15 (Ivon Fields) Decelerations: None (Ivon Fields) Patient Position/Activity: Right Tilt (Ivon Fields) Datetime: 09/27/2016 22:45 Pitocin (milliunit): Pitocin Remains (milliunits) @ (Annotations: 16) (Ivon Fields) Datetime: 09/27/2016 22:34 Monitor Mode: External; Internal (Ivonnannette Fields) Monitor Interventions for UA: IUPC Inserted (Ivon Fields) Quality: Moderate to Strong (Ivonnannette Fields) Resting Tone (Palpate): Relaxed (Ivon Fields) Dilatation (cm): 5.0 (Ivonnannette Fields) Effacement (%): 50 (Ivonnannette Fields) Station: -1 (Ivon Fields) Exam by: Dr Stevenson (Ivon Fields) Membrane Status: Ruptured (Mary Beth Campbell RN) Membrane Status: Ruptured (Ivon Fields) Membranes Ruptured Date/Time: 09/27/2016 22:34 (Ivon Fields) Membranes Rupture Method: Artificial (Mary Beth Campbell RN) Membranes Rupture Method: Artificial (Ivon Fields) Amniotic Fluid Color: Clear (Mary Beth Campbell RN) Amniotic Fluid Color: Clear (Ivonnannette Fields) Amniotic Fluid Amount: Small (Mary Beth Campbell RN) Amniotic Fluid Amount: Moderate (Ivonnannette Fields) Amniotic Fluid Odor: Normal (Mary Beth Campbell RN) Amniotic Fluid Odor: Normal (Ivonnannette Fields) Patient Care Comments: Dr Stevenson at the bedside for rom and iupc insertion (Ivonnannette Fields) Datetime: 09/27/2016 22:30 Pitocin (milliunit): Pitocin Remains (milliunits) @ (Annotations: 16) (Ivon Fields) Datetime: 09/27/2016 22:28 Respirations: 18 (Ivon Fields) Monitor Mode: External; Palpation (Ivon Fields) Monitor Interventions for UA: [place] Adjusted (Ivon Fields) Frequency (min): 140 (Ivon Fields) Quality: Moderate (Ivon Fields) Duration (sec): 50-70 (Ivon Fields) Resting Tone (Palpate): Relaxed (Ivon Fields) Monitor Mode: External US (Ivon Fields) Monitor Interventions for FHR: Ultrasound Adjusted (Ivon Fields) FHR Baseline Rate : 140 (Ivon Fields) Variability: Moderate 6-25 bpm (Ivon Fields) Accelerations: 15X15 (Ivon Fields) Decelerations: None (Ivon Fields) Patient Position/Activity: Right Tilt (Ivon Fields) Datetime: 09/27/2016 22:25 NBP Sys/Linda/Mean (mmHg): 134 (QS system process) : 78 (QS system process) : 101 (QS system process) Pulse: 77 (QS system process) Antibiotics: Penicillin IV (Units) @ (Annotations: 2.5) (Ivon Fields) Datetime: 09/27/2016 22:20 Procedure Type: epidural (Ivon Fields) Procedure Verify: Correct Patient Identity; Correct Side and Site are Marked; Accurate Procedure Consent Form; Agreement on Procedure to be Done; Correct Patient Position; Relevant Images and Results are Properly Labeled and Displayed; Safety Precautions Based on Patient History or Medication Use (Ivonnannette Fields) Datetime: 09/27/2016 22:15 Respirations: 18 (Ivonnannette Fields) Monitor Mode: External; Palpation (Ivonnannette Fields) Monitor Interventions for UA: [place] Adjusted (Ivonnannette Fields) Frequency (min): 2-7 (Ivonnannette Fields) Quality: Moderate (Ivonnannette Fields) Duration (sec): 50-70 (Ivonnannette Fields) Resting Tone (Palpate): Relaxed (Ivonnannette Fields) Contraction Comments: unable to trace ctx but can palpate (Ivonnannette Fields) Monitor Mode: External US (Ivon Fields) Monitor Interventions for FHR: Ultrasound Adjusted (Ivon Fields) FHR Baseline Rate : 140 (Ivon Fields) FHR Baseline Changes: No Baseline Change (Ivon Fields) Variability: Moderate 6-25 bpm (Ivon Fields) Accelerations: 15X15 (Ivon Fields) Decelerations: None (Ivon Fields) Pitocin (milliunit): Pitocin Remains (milliunits) @ (Annotations: 16) (Ivon Fields) Patient Position/Activity: Right Tilt (Ivon Fields) Datetime: 09/27/2016 22:03 Patient Care Comments: patient up to the restroom (Ivon Fields) Datetime: 09/27/2016 22:00 Respirations: 18 (Ivon Fields) Monitor Mode: External; Palpation (Ivon Fields) Monitor Interventions for UA: [place] Adjusted (Ivon Fields) Frequency (min): 2-6 (Ivon Fields) Quality: Moderate (Ivon Fields) Duration (sec): 50-70 (Ivon Fields) Resting Tone (Palpate): Relaxed (Ivon Fields) Contraction Comments: unable to trace ctx with the monitor but able to palpate. (Ivon Fields) Monitor Mode: External US ([facility]) Monitor Interventions for FHR: Ultrasound Adjusted ([facility]) FHR Baseline Rate : 145 (Ivon Fields) FHR Baseline Changes: No Baseline Change (Ivon Fields) Variability: Moderate 6-25 bpm (Ivon Fields) Accelerations: 15X15 (Ivon Fields) Decelerations: None ([facility]) Pitocin (milliunit): Pitocin Remains (milliunits) @ (Annotations: 16) ([facility]) Patient Position/Activity: Right Lateral ([facility]) Procedure Type: epidural ([facility]) Procedure Verify: Correct Patient Identity; Correct Side and Site are Marked; Accurate Procedure Consent Form; Agreement on Procedure to be Done; Correct Patient Position; Relevant Images and Results are Properly Labeled and Displayed; Safety Precautions Based on Patient History or Medication Use ([facility]) Datetime: 09/27/2016 21:54 NBP Sys/Linda/Mean (mmHg): 88 (QS system process) : 52 (QS system process) : 63 (QS system process) Pulse: 65 (QS system process) Datetime: 09/27/2016 21:45 Respirations: 18 (Ivon Fields) Monitor Mode: External; Palpation (Ivon Fields) Monitor Interventions for UA: [place] Adjusted (Ivon Fields) Frequency (min): 2-7 (Ivon Fields) Quality: Moderate (Ivon Fields) Duration (sec): 50-70 (Ivon Fields) Resting Tone (Palpate): Relaxed (Ivon Fields) Contraction Comments: contractions will not trace on the monitor but can be palpated. (Ivon Fields) Monitor Mode: External US (Ivon Fields) Monitor Interventions for FHR: Ultrasound Adjusted (Ivon Fields) FHR Baseline Rate : 140 (Ivon Fields) Variability: Moderate 6-25 bpm (Ivon Fields) Accelerations: 15X15 (Ivon Fields) Decelerations: None (Ivon Fields) Pitocin (milliunit): Pitocin Increased to (milliunits) @ (Annotations: 16) (Ivon Fields) Patient Position/Activity: Right Lateral (Ivon Fields) Datetime: 09/27/2016 21:38 Monitor Interventions for UA: [place] Adjusted (Mary Beth Lattibeaudeir, RN) Datetime: 09/27/2016 21:29 Respirations: 18 (Ivon Fields) Monitor Interventions for UA: [place] Adjusted (Ivon Fields) Contraction Comments: rn at the bedside for toco adjustment and maternal repositioning (Ivon Fields) FHR Baseline Changes: Unable to Determine (Ivon Fields) Comments: rn at the bedside for fhr monitor adjustment (Ivon Fields) Patient Position/Activity: Right Lateral (Ivon Fields) Datetime: 09/27/2016 21:25 Pitocin (milliunit): Pitocin Increased to (milliunits) @ (Annotations: 16 ) (Ivon Fields) Datetime: 09/27/2016 21:24 NBP Sys/Linda/Mean (mmHg): 98 (QS system process) : 54 (QS system process) : 72 (QS system process) Pulse: 75 (QS system process) Datetime: 09/27/2016 21:19 Patient Care Comments: patient up to the restroom (Ivon Fields) Datetime: 09/27/2016 21:15 Respirations: 18 (Ivon Fields) Monitor Mode: External; Palpation (Ivon Fields) Monitor Interventions for UA: [place] Adjusted (Ivon Fields) Frequency (min): 2-7 (Ivon Fields) Quality: Mild/Moderate (Ivon Fields) Duration (sec): 40-60 (Ivon Fields) Resting Tone (Palpate): Relaxed (Ivon Fields) Monitor Mode: External US (Ivon Fields) Monitor Interventions for FHR: Ultrasound Adjusted (Ivon Fields) FHR Baseline Rate : 140 (Ivon Fields) FHR Baseline Changes: No Baseline Change (Ivon Fields) Variability: Moderate 6-25 bpm (Ivon Fields) Accelerations: 15X15 (Ivon Fields) Decelerations: None (Ivon Fields) Patient Position/Activity: Left Lateral (Ivon Fields) Datetime: 09/27/2016 21:00 Respirations: 18 (Ivon Fields) Monitor Mode: External; Palpation (Ivon Fields) Monitor Interventions for UA: [place] Adjusted (Ivon Fields) Frequency (min): 2-4 (Ivon Fields) Quality: Mild/Moderate (Ivon Fields) Duration (sec): 50-70 (Ivon Fields) Resting Tone (Palpate): Relaxed (Ivon Fields) Comments: rn at the bedside for fhr monitor adjustment (Ivon Fields) Pitocin (milliunit): Pitocin Increased to (milliunits) @ (Annotations: 14 ) (Ivon Fields) Patient Position/Activity: Left Lateral (Ivon Fields) Datetime: 09/27/2016 20:54 NBP Sys/Linda/Mean (mmHg): 103 (QS system process) : 72 (QS system process) : 81 (QS system process) Pulse: 76 (QS system process) Datetime: 09/27/2016 20:45 Pitocin (milliunit): Pitocin Remains (milliunits) @ (Annotations: 12) (Ivon Fields) Datetime: 09/27/2016 20:43 Patient Care Comments: patient up to the restroom (Ivon Fields) Datetime: 09/27/2016 20:42 Respirations: 18 (Ivon Fields) Monitor Mode: External; Palpation (Ivon Fields) Monitor Interventions for UA: [place] Adjusted (Ivon Fields) Frequency (min): 2-5 (Ivon Fields) Quality: Mild/Moderate (Ivon Fields) Duration (sec): 50-70 (Ivon Fields) Resting Tone (Palpate): Relaxed (Ivon Fields) Monitor Mode: External US (Ivon Fields) Monitor Interventions for FHR: Ultrasound Adjusted (Ivon Fields) FHR Baseline Rate : 150 (Ivon Fields) Variability: Moderate 6-25 bpm (Ivon Fields) Accelerations: 15X15 (Ivon Fields) Decelerations: None (Ivon Fields) Patient Position/Activity: Left Tilt (Ivon Fields) Datetime: 09/27/2016 20:30 Respirations: 18 (Ivon Fields) Monitor Mode: External; Palpation (Ivon Fields) Monitor Interventions for UA: [place] Adjusted (Ivon Fields) Frequency (min): 2-5 (Ivon Fields) Quality: Mild/Moderate (Ivon Fields) Duration (sec): 50-70 (Ivon Fields) Resting Tone (Palpate): Relaxed (Ivon Fields) Monitor Mode: External US (Ivon Fields) Monitor Interventions for FHR: Ultrasound Adjusted (Ivon Fields) FHR Baseline Rate : 150 (Ivon Fields) Variability: Moderate 6-25 bpm (Ivon Fields) Accelerations: 15X15 (Ivon Fields) Decelerations: None (Ivon Fields) Pitocin (milliunit): Pitocin Increased to (milliunits) @ (Annotations: 12 ) (Ivon Fields) Patient Position/Activity: Left Lateral (Ivon Fields) Datetime: 09/27/2016 20:24 NBP Sys/Linda/Mean (mmHg): 116 (QS system process) : 74 (QS system process) : 88 (QS system process) Pulse: 74 (QS system process) Datetime: 09/27/2016 20:15 Pitocin (milliunit): Pitocin Remains (milliunits) @ (Annotations: 10) (Ivon Fields) Datetime: 09/27/2016 20:14 Respirations: 18 (Ivon Fields) Monitor Mode: External; Palpation (Ivon Fields) Monitor Interventions for UA: [place] Adjusted (Ivon Fields) Frequency (min): 4-5 (Ivon Fields) Quality: Mild/Moderate (Ivon Fields) Duration (sec): 40-60 (Ivon Fields) Resting Tone (Palpate): Relaxed (Ivon Fields) Monitor Mode: External US (Ivon Fields) Monitor Interventions for FHR: Ultrasound Adjusted (Ivon Fields) FHR Baseline Rate : 150 (Ivon Fields) Variability: Moderate 6-25 bpm (Ivon Fields) Accelerations: 15X15 (Ivon Fields) Decelerations: None (Ivon Fields) Patient Position/Activity: Left Lateral (Ivon Fields) Datetime: 09/27/2016 20:04 Patient Care Comments: patient up to the restroom (Ivon Fields) Datetime: 09/27/2016 20:00 Respirations: 18 (Ivon Fields) Monitor Mode: External; Palpation (Ivon Fields) Monitor Interventions for UA: [place] Adjusted (Ivon Fields) Frequency (min): 3-5 (Ivon Fields) Quality: Mild/Moderate (Ivon Fields) Duration (sec): 40-60 (Ivon Fields) Resting Tone (Palpate): Relaxed (Ivon Fields) Monitor Mode: External US (Ivon Fields) Monitor Interventions for FHR: Ultrasound Adjusted (Ivon Fields) FHR Baseline Rate : 140 (Ivon Fields) FHR Baseline Changes: No Baseline Change (Ivon Fields) Variability: Moderate 6-25 bpm (Ivon Fields) Accelerations: 15X15 (Ivon Fields) Decelerations: None (Ivon Fields) Pitocin (milliunit): Pitocin Increased to (milliunits) @ (Annotations: 10) (Ivon Fields) Patient Position/Activity: Left Lateral (Ivon Fields) Datetime: 09/27/2016 19:54 NBP Sys/Linda/Mean (mmHg): 112 (QS system process) : 68 (QS system process) : 87 (QS system process) Pulse: 75 (QS system process) Datetime: 09/27/2016 19:45 Respirations: 18 (Ivon Fields) Monitor Mode: External; Palpation (Ivon Fields) Monitor Interventions for UA: [place] Adjusted (Ivon Fields) Frequency (min): 5-6 (Ivon Fields) Quality: Mild/Moderate (Ivon Fields) Duration (sec): 40-60 (Ivon Fields) Resting Tone (Palpate): Relaxed (Ivon Fields) Monitor Mode: External US (Ivon Fields) Monitor Interventions for FHR: Ultrasound Adjusted (Ivon Fields) FHR Baseline Rate : 140 (Ivon Fields) Variability: Moderate 6-25 bpm (Ivon Fields) Accelerations: 15X15 (Ivon Fields) Decelerations: None (Ivon Fields) Pitocin (milliunit): Pitocin Increased to (milliunits) @ (Annotations: 8) (Ivon Fields) Patient Position/Activity: Left Lateral (Ivon Fields) Datetime: 09/27/2016 19:31 Comments: rn at the bedside for fhr monitor adjustmernt and maternal repositioning (Ivon Fields) Datetime: 09/27/2016 19:30 Respirations: 18 (Ivon Fields) Monitor Mode: External; Palpation (Ivon Fields) Monitor Interventions for UA: [place] Adjusted (Ivon Fields) Frequency (min): 4-7 (Ivon Fields) Quality: Mild/Moderate (Ivon Fields) Duration (sec): 60-70 (Ivon Fields) Resting Tone (Palpate): Relaxed (Ivon Fields) FHR Baseline Changes: Unable to Determine (Ivon Fields) Pitocin (milliunit): Pitocin Increased to (milliunits) @ (Annotations: 6) (Ivon Fields) Patient Position/Activity: Left Lateral (Ivon Fields) Datetime: 09/27/2016 19:23 Communication Comments: Bedside report given to Camilla Fields RN (Eugeniacas Bennett, RN) Datetime: 09/27/2016 19:21 Patient Care Comments: patient up to the restroom (Ivon Fields) Datetime: 09/27/2016 19:15 Respirations: 18 (Ivon Fields) Monitor Mode: External; Palpation (Ivon Fields) Monitor Interventions for UA: [place] Adjusted (Ivon Fields) Frequency (min): 4-5 (Ivon Fields) Quality: Mild/Moderate (Ivon Fields) Duration (sec): 60-70 (Ivon Fields) Resting Tone (Palpate): Relaxed (Ivonnannette Fields) Monitor Mode: External US (Ivon Fields) Monitor Interventions for FHR: Ultrasound Adjusted (Ivon Fields) FHR Baseline Rate : 145 (Ivon Fields) Variability: Moderate 6-25 bpm (Ivon Fields) Accelerations: 15X15 (Ivon Fields) Decelerations: None (Ivon Fields) Pitocin (milliunit): Pitocin Remains (milliunits) @ (Annotations: 4) (Ivon Fields) Patient Position/Activity: Left Tilt ([facility]) Datetime: 09/27/2016 19:00 Monitor Mode: External; Palpation (Eugenia Bennett RN) Quality: Mild (Eugenia Bennett RN) Resting Tone (Palpate): Relaxed (Eugenia Bennett RN) Contraction Comments: contractions not tracing on monitor (Eugenia Bennett RN) Monitor Mode: External US (Eugenia Bennett RN) FHR Baseline Rate : 135 (Eugenia Bennett RN) Variability: Moderate 6-25 bpm (Eugenia Bennett RN) Accelerations: 15X15 (Eugenia Bennett RN) Decelerations: None (Eugenia Bennett RN) Pitocin (milliunit): Pitocin Increased to (milliunits) @ 4 (Eugenia Bennett RN)
[2016-09-28] MEDS: SENNOSIDES/DOCUSATE 8.6-50 MG 1 EACH TABLET PO SCH (09:46)
[2016-09-28] MEDS: DOCUSATE SODIUM 100 MG CAPSULE PO SCH ×2 (09:46→17:30)
[2016-09-28] MEDS: FERROUS SULFATE 325 MG TABLET PO SCH ×2 (09:46→17:30)
[2016-09-28] MEDS: PRENATAL VITAMIN W-O CA NO5/FE FUMARATE/FA CAPSULE PO SCH (09:46)
[2016-09-28] MEDS: FAMOTIDINE 20 MG TABLET PO SCH ×2 (09:48→21:33)
--- NOTE | 2016-09-28 11:39 | PDOC PROGRESS REPORT ---
Subjective-OB Subjective: Post Delivery Day:1 25 year old . , ambulating and voiding without difficulty. Denies any needs at this time Physical Exam (OB) Vital Signs: Temp Pulse Resp BP Pulse Ox 97.9 F 63 15 107/73 100 09/28/16 08:49 09/28/16 08:49 09/28/16 08:49 09/28/16 08:49 09/28/16 08:49 Intake & Output 09/27/16 09/28/16 09/29/16 06:59 06:59 06:59 Weight 77.45 kg - General General Appearance: Appears well In distress: None - Episiotomy/Laceration Site Condition: N/A - Lochia Lochia Amount: Small 10-25 ml Lochia Color: Rubra/Red - Abdomen Description: Soft, Round Hernia Present: No Fundal Description: Firm, Midline Fundal Height: u/u - u/2 - Respiratory Respiratory Status: No respiratory distress - Neurological Cognition: Normal Orientation: AAOx4 - bonding well with baby.Family at bedside Objective-Diagnostic Laboratory: 09/27/16 18:20 09/27/16 09/27/16 09/27/16 14:35 18:20 18:20 WBC 9.0 RBC 4.30 Hgb 9.8 L Hct 30.3 L MCV 71 L MCH 22.7 L MCHC 32.2 RDW 15.6 H Plt Count 297 Urine Color STRAW Urine Appearance CLEAR Urine pH 7.0 Ur Specific Yeso 1.005 Urine Protein NEGATIVE Urine Glucose (UA) NEGATIVE Urine Ketones NEGATIVE Urine Blood NEGATIVE Urine Nitrite NEGATIVE Ur Leukocyte Esterase NEGATIVE Blood Type O POSITIVE Antibody Screen NEGATIVE Assessment and Plan(PN) - Assessment and Plan (1) Vaginal delivery Is this a current diagnosis for this admission?: YesPlan: continue stay (2) Term Is this a current diagnosis for this admission?: YesPlan: continue stay - Time Spent with Patient Time with patient: Less than 15 minutes Medications reviewed and adjusted accordingly: Yes - Disposition Anticipated Discharge: Home Within: within 48 hours
[2016-09-28] MEDS ORDERED: ONDANSETRON 4 MG TAB.RAPDIS ONE (12:58)
[2016-09-28] MEDS ORDERED: ONDANSETRON 4 MG TAB.RAPDIS PO PRN (13:08)
--- NOTE | 2016-09-28 18:00 | L&D Current Admission ---
Current Admit Datetime Report Generated by CPN: 09/28/2016 18:00 ADMISSION INFORMATION Current Admit Date/Time: 09/27/2016 17:25 (09/27/2016 14:58:Eugenia Bennett RN) Reason for Admission: Induction of Labor (09/27/2016 14:58:Eugenia Bennett RN) Chief Complaint: Contractions (09/27/2016 14:58:Eugenia Bennett RN) Medications During : Vitamin; Acetaminophen (Tylenol); Ondansetron (Zofran) (09/27/2016 14:58:Eugenia Bennett RN) EGA per Dates: 39.1 (09/27/2016 14:58:QS system process) Method of Arrival: Wheelchair (09/27/2016 14:58:Eugenia Bennett RN) Admitted From: Home (09/27/2016 14:58:Eugenia Bennett RN) Reason for Induction: Intrauterine Growth Retardation (09/27/2016 14:58:Eugenia Bennett RN) Records Available: Yes (09/27/2016 14:58:Eugenia Bennett RN) General Admission Information: Reviewed (09/27/2016 14:58:Eugenia Bennett RN) General Admission Reviewed By: Camilla Bennett RN (09/27/2016 14:58:Eugenia Bennett RN) BELONGINGS/ADVANCED DIRECTIVES Valuables/Personal Effects: None (09/27/2016 14:58:Eugenia Bennett RN) Other Belongings: see consents (09/27/2016 14:58:Eugenia Bennett RN) Disposition of Belongings: Sent Home (09/27/2016 14:58:Eugenia Bennett RN) Advance Direct for Healthcare: No, and Wants No Information (09/27/2016 14:58:Eugenia Bennett RN) Durable Power of Global Security Architect: No (09/27/2016 14:58:Eugenia Bennett RN) Living Will: No (09/27/2016 14:58:Eugenia Bennett RN) Organ Donor: Yes (09/27/2016 14:58:Eugenia Bennett RN) Pt Rights Information Given: Yes (09/27/2016 14:58:Eugenia Bennett RN) Pt Understands Pt Rights: Yes (09/27/2016 14:58:Eugenia Bennett RN) LEARNING ASSESSMENT Knowledge Level: Understands L_D Process; Understands Care Activities; Had Pre-Hospital Education; Understands Diagnosis (09/27/2016 14:58:Eugenia Bennett RN) Barriers to Learning: None (09/27/2016 14:58:Eugenia Bennett RN) Learning Readiness: Motivated (09/27/2016 14:58:Eugenia Bennett RN) Learns Best By: 1 to 1 Instruction; Demonstration (09/27/2016 14:58:Eugenia Bennett RN) Learning Needs: Labor and Delivery Process; Pain Management; Symptoms to Report; Treatment Plan; Medication; Diagnosis; Nutrition; Equipment; Care; Community Resources (09/27/2016 14:58:Eugenia Bennett RN) DOMESTIC VIOLANCE SCREENING Dom Viol Threatened/Hurt: No (09/27/2016 14:58:Eugenia Bennett RN) Hx of Abuse/Neglect past 2yrs: No (09/27/2016 14:58:Eugenia Bennett RN) Feel Unsafe Going Home: No (09/27/2016 14:58:Eugenia Bennett RN) Addt'l Observ Indicating Abuse: No (09/27/2016 14:58:Eugenia Bennett RN) Reason Unable to Complete Screen: N/A, Screen Completed (09/27/2016 14:58:Eugenia Bennett RN) Considered Personal Harm/Suicide: No (09/27/2016 14:58:Eugenia Bennett RN) NUTRITIONAL/FUNCTIONAL SCREENING Problem with Appetite >5 Days: No (09/27/2016 14:58:Eugenia Bennett RN) Chew/Swallow Difficulties: No (09/27/2016 14:58:Eugenia Bennett RN) Inappropriate Wt Gain/Loss: No (09/27/2016 14:58:Eugenia Bennett RN) Presence Skin Breakdown/Ulcer: No (09/27/2016 14:58:Eugenia Bennett RN) Special Diet: No (09/27/2016 14:58:Eugenia Bennett RN) Pt Requests Vacuum Furnace Operator Visit: No (09/27/2016 14:58:Eugenia Bennett RN) Hx of Any of the Following?: N/A (09/27/2016 14:58:Eugenia Bennett RN) New Diagnosis of: N/A (09/27/2016 14:58:Eugneia Bennett RN) Requires Assist w/Ambulation: No (09/27/2016 14:58:Eugenia Bennett RN) Uses Assist Device to Ambulate: No (09/27/2016 14:58:Eugenia Bennett RN) Pt Requires Help w/ADL's: No (09/27/2016 14:58:Eugenia Bennett RN)
--- NOTE | 2016-09-28 18:00 | L&D General Admission ---
General Admit Datetime Report Generated by CPN: 09/28/2016 18:00 INFORMATION Patient Age: 25 (07/18/2016 09:07:QS system process) EDC: 10/03/2016 00:00 (07/18/2016 09:22:Blanca Jansen RN) : 6 (07/18/2016 09:22:Blanca Jansen RN) Para: 5 (08/26/2016 20:47:Eugenia Bennett RN) Term: 4 (07/18/2016 09:22:Eugenia Bennett RN) : 1 (07/18/2016 09:22:Eugenia Bennett RN) Spontaneous Abortions: 0 (07/18/2016 09:22:Eugenia Bennett RN) Induced Abortions: 0 (07/18/2016 09:22:Eugenia Bennett RN) Livin (07/18/2016 09:22:Eugenia Bennett RN) Cesareans: 0 (07/18/2016 09:22:Eugenia Bennett RN) VBACs: 0 (07/18/2016 09:22:Eugenia Bennett RN) Ectopic: 0 (07/18/2016 09:22:Eugenia Bennett RN) Multiple Births: 0 (07/18/2016 09:22:Eugenia Bennett RN) Baby, Number in Womb: 1 (08/26/2016 20:47:Rosemary Olivares RN) CARE Primary Swim Coach: [facility] Department (07/18/2016 09:22:Blanca Jansen RN) Adequate Care: No (07/18/2016 09:22:Blanca Jansen RN) Height (in): 62 (09/28/2016 09:32:QS system process) ALLERGIES Medication Allergy: No (07/18/2016 09:22:Blanca Jansen RN) Medication Allergies: No Known Allergies (09/27/2016) (09/27/2016 15:12:QS system process) Latex Allergy: No Latex Allergies (07/18/2016 09:22:Blanca Jansen RN) Food Allergies: denies (07/18/2016 09:22:Blanca Jansen RN) Environmental Allergies: denies (07/18/2016 09:22:Blanca Jansen RN) COMMUNICATION Primary Language: Kinyarwanda (07/18/2016 09:22:Blanca Jansen RN) Medical Tx Preferred Language: Kinyarwanda (07/18/2016 09:22:Blanca Jansen RN) Communication Barrier(s): None (07/18/2016 09:22:ALVIN Patel) DEMOGRAPHICS Address: [address] [place] [address], [address] [address] (07/18/2016 09:07:QS system process) Zipcode: [id number] (07/18/2016 09:07:QS system process) Home (07/18/2016 09:07:QS system process) Work (07/18/2016 09:07:QS system process) SSN: [id number] (07/18/2016 09:07:QS system process) Next of Kin Name: THAIS ALVARENGA (07/18/2016 09:07:QS system process) Next of Kin (07/18/2016 09:07:QS system process) Next of Kin Relationship: OR (07/18/2016 09:07:QS system process) Date of : 1990 (07/18/2016 09:07:QS system process) Marital Status: Single (07/18/2016 09:07:QS system process) Sex: Female (07/18/2016 09:07:QS system process) Race: (07/18/2016 09:07:QS system process) Ethnicity: Non- or (07/18/2016 09:07:QS system process) Presybeterian: None (07/18/2016 09:07:QS system process) DRUG AND ALCOHOL USE Alcohol: No (07/18/2016 09:22:Blanca Jasnen RN) Cigarettes: Current Some Day Smoker. [id number] (07/18/2016 09:22:Blanca Jansen RN) Marijuana: Yes (07/18/2016 09:22:Eugenia Bennett RN) Cocaine: No (07/18/2016 09:22:Blanca Jansen RN) Other Illicit Drugs: No (07/18/2016 09:22:Blanca Jansen RN) VACCINE HISTORY Influenza Vaccine: No (07/18/2016 09:22:Blanca Jansen RN) Pneumococcal Vaccine: No (07/18/2016 09:22:Blanca Jansen RN) Tetanus Vaccine: No (07/18/2016 09:22:Blanca Jansen RN) Tdap Vaccine: No (07/18/2016 09:22:Blanca Jansen RN) Hepatitis B Vaccine: No (07/18/2016 09:22:Blanca Jansen RN) Completions Engineer: [facility] (07/18/2016 09:22:Blanca Jansen RN) Feeding Preference: Both (07/18/2016 09:22:Eugenia Bennett, AARON) Benefit of Breast Feed Discussed: Yes (07/18/2016 09:22:Eugenia Bennett RN) Circumcision: Yes (07/18/2016 09:22:Blanca Jansen RN) Classes Attended: No (07/18/2016 09:22:Blanca Jansen RN) Tubal Ligation: Yes (07/18/2016 09:22:Blanca Jansen RN) Consent: N/A (07/18/2016 09:22:Blanca Jansen RN) Consent Signed: N/A (07/18/2016 09:22:Blanca Jansen RN) Pain Management Plans: Epidural (07/18/2016 09:22:Blanca Jansen RN) Plans for Labor and Delivery: None (07/18/2016 09:22:Blanca Jansen RN) Support Person: Jose Graham (07/18/2016 09:22:Blanca Jansen RN) Support Person Relationship: Significant Other (07/18/2016 09:22:Blanca Jansen RN) Cultural/Spritual Practice: No (07/18/2016 09:22:Blanca Jansen RN) Spir/Cult Dietary Needs: No (07/18/2016 09:22:Blanca Jansen RN) LIVING SITUATION/DISCHARGE PLAN Living Arrangements: House (07/18/2016 09:22:Blanca Jansen RN) Adequate Access to:: Electric; Heat; Refrigeration; Plumbing/Running water; Phone; Transportation (07/18/2016 09:22:Blanca Jansen RN) WIC Program: Yes (07/18/2016 09:22:Blanca Jansen RN) Discharge Dimpling Machine Operator Person: Jose (07/18/2016 09:22:Blanca Jnasen RN) Person to Help after Discharge: Jose (07/18/2016 09:22:Blanca Jansen RN) Currently Using Commun Resources: Evonne (07/18/2016 09:22:Blanca Jansen RN) Outside Agency/Hearing Care Practitioner: Evonne (07/18/2016 09:22:Blanca Jansen RN) Car Seat for Discharge: No (07/18/2016 09:22:Blanca Jansen RN) Adoption Requested: No (07/18/2016 09:22:Blanca Jansen RN) Pt Contact w/ Post : N/A (07/18/2016 09:22:Blanca Jansen RN) LABS Blood Type: O Positive (07/18/2016 09:22:Eugenia Bennett RN) Antibody Screen: negative (07/18/2016 09:22:Eugenia Bennett RN) Rho(G) this : Not Applicable (07/18/2016 09:22:Mary Beth Campbell RN) Hemoglobin: 9.8 L (09/27/2016 18:20:QS system process) Hematocrit: 30.3 L (09/27/2016 18:20:QS system process) MCV: 71 L (09/27/2016 18:20:QS system process) Group Beta Strep: unknown (07/18/2016 09:22:Eugenia Bennett RN) Gonorrhea: Negative (07/18/2016 09:22:Blanca Jansen RN) Chlamydia: Negative (07/18/2016 09:22:Blanca Jansen RN) RPR/VDRL: Nonreactive (07/18/2016 09:22:Eugenia Bennett RN) Hepatitis B: Negative (07/18/2016 09:22:Eugenia Bennett RN) Rubella: Immune (07/18/2016 09:22:Eugenia Bennett RN) Varicella: Non Susceptible (07/18/2016 09:22:Eugenia Bennett RN) Pap Test: Abnormal (07/18/2016 09:22:Eugenia Bennett RN) OB/PREVIOUS HISTORY Previous Procedures: Ultrasound; NST (07/18/2016 09:22:Eugenia Bennett RN) Current Procedures: Ultrasound (07/18/2016 09:22:Eugenia Bennett RN) History of Previous : No (07/18/2016 09:22:Blanca Jansen RN) History of Gestational Diabetes: No (07/18/2016 09:22:Blanca Jansen RN) History of PIH: No (07/18/2016 09:22:Blanca Jansen RN) History of Incompetent Cervix: No (07/18/2016 09:22:Blanca Jansen RN) History of Placenta Previa/Abrup: No (07/18/2016 09:22:Blanca Jansen RN) History of Macrosomia: No (07/18/2016 09:22:Blanca Jansen RN) History of IUGR: No (07/18/2016 09:22:Blanca Jansen RN) History of Hemorrhage: No (07/18/2016 09:22:Blanca Jansen RN) History of Loss/Stillborn: No (07/18/2016 09:22:Blanca Jansen RN) History of : No (07/18/2016 09:22:Blanca Jansen RN) History of D (Rh) Sensitization: No (07/18/2016 09:22:Blanca Jansen RN) History Recurrent Loss/Stillborn: No (07/18/2016 09:22:Blanca Jansen RN) History Depression/PP Depression: Yes (07/18/2016 09:22:Blanca Jansen RN) History of Uterine Anomaly/MICHAEL: No (07/18/2016 09:22:Blanca Jansen RN) History of Infertility: No (07/18/2016 09:22:Blanca Jansen RN) History of ART Treatment: No (07/18/2016 09:22:Blanca Jansen RN) History of MICHAEL: No (07/18/2016 09:22:Blanca Jansen RN) Comments Obstetrical History: G1: 2005, kiwi G2: 2006 no complications G3: 2007 no complications G4: 2008, baby viral meningitis after sent home from hospital G5: 2014 stillborn (20 some weeks per patient) G6: current, limited PNC (07/18/2016 09:22:Eugenia Bennett RN) MEDICAL HISTORY Med Hx Diabetes: No (07/18/2016 09:22:Blanca Jansen RN) Med Hx Hypertension: No (07/18/2016 09:22:Blanca Jansen RN) Med Hx Heart Disease: No (07/18/2016 09:22:Blanca Jansen RN) Med Hx Autoimmune Disorder: No (07/18/2016 09:22:Blanca Jansen RN) Med Hx Kidney Disease/UTI: No (07/18/2016 09:22:Blanca Jansen RN) Med Hx Neurologic/Epilepsy: No (07/18/2016 09:22:Blanca Jansen RN) Med Hx Psychiatric Disorders: No (07/18/2016 09:22:Blanca Jansen RN) Med Hx Hepatitis/Liver Disease: No (07/18/2016 09:22:Blanca Jansen RN) Med Hx Varicosities/Phlebitis: No (07/18/2016 09:22:Blanca Jansen RN) Med Hx Thyroid Dysfunction: No (07/18/2016 09:22:Blanca Jansen RN) Med Hx Trauma/Violence: No (07/18/2016 09:22:Blanca Jansen RN) Med Hx Blood Transfusion: No (07/18/2016 09:22:Blanca Jansen RN) Med Hx Pulmonary (Asthma,TB): No (07/18/2016 09:22:Blanca Jansen RN) Med Hx Breast: No (07/18/2016 09:22:Blanca Jansen RN) Med Hx ICE CREAM MAN Surgery: No (07/18/2016 09:22:Blanca Jansen RN) Med Hx Hospitalization/Surgery: Yes (07/18/2016 09:22:Blanca Jansen RN) Med Hx Anesthetic Complications: No (07/18/2016 09:22:Blanca Jansen RN) Med Hx Abnormal Pap Smear: Yes (07/18/2016 09:22:Eugenia Bennett RN) Other Medical Diseases: No (07/18/2016 09:22:Blanca Jansen RN) Med Hx Significant Family Hx: No (07/18/2016 09:22:Blanca Jansen RN) Details of Med/Surg Hx: D_C: 2013, abnl pap 2016 cancerous cells, depression - not medicated (07/18/2016 09:22:Eugenia Bennett RN) INFECTIOUS HISTORY Inf Hx Gonorrhea: No (07/18/2016 09:22:Blanca Jansen RN) Inf Hx Chlamydia: No (07/18/2016 09:22:Blanca Jansen RN) Inf Hx Syphilis: No (07/18/2016 09:22:Blanca Jansen RN) Inf Hx HIV/AIDS: No (07/18/2016 09:22:Blanca Jansen RN) Inf Hx Human Papilloma Virus: No (07/18/2016 09:22:Blanca Jansen RN) Inf Hx Pt/Partner Genital Herpes: No (07/18/2016 09:22:Blanca Jansen RN) Inf Hx Tuberculosis/Exposure: No (07/18/2016 09:22:Blanca Jansen RN) Inf Hx Hepatitis B,C: No (07/18/2016 09:22:Blanca Jansen RN) Inf Hx Rash or Viral Illness: No (07/18/2016 09:22:Blanca Jansen RN) GENETIC HISTORY Gen Hx Age >=35 at TREVOR: No (07/18/2016 09:22:Blanca Jansen RN) Gen Hx Thalassemia: No (07/18/2016 09:22:Blanca Janesn RN) Gen Hx Congenital Heart Defect: No (07/18/2016 09:22:Blanca Jansen RN) Gen Hx Neural Tube Defect: No (07/18/2016 09:22:Blanca Jansen RN) Gen Hx Down's Syndrome: No (07/18/2016 09:22:Blanca Jansen RN) Gen Hx Grover-Sachs: No (07/18/2016 09:22:Blanca Jansen RN) Gen Hx Casimiro: No (07/18/2016 09:22:Blanca Jansen RN) Gen Hx Familial Dysautonomia: No (07/18/2016 09:22:Blanca Jansen RN) Gen Hx Sickle Cell Disease/Trait: No (07/18/2016 09:22:Blanca Jansen RN) Gen Hx Hemophilia/Blood Disorder: No (07/18/2016 09:22:Blanca Jansen RN) Gen Hx Muscular Dystrophy: No (07/18/2016 09:22:Blanca Jansen RN) Gen Hx Cystic Fibrosis: No (07/18/2016 09:22:Blanca Jansen RN) Gen Hx Huntingtons Chorea: No (07/18/2016 09:22:Blanca Jansen RN) Gen Hx Mental Retardation/Autism: No (07/18/2016 09:22:Blanca Jansen RN) Gen Hx Tested for Fragile X: No (07/18/2016 09:22:Blanca Jansen RN) Gen Hx Other Inher/Chromosomal: No (07/18/2016 09:22:Blanca Jansen RN) Gen Hx Maternal Metabolic DO: No (07/18/2016 09:22:Blanca Jansen RN) Gen Hx Pt Father or FOB Defect: No (07/18/2016 09:22:Blanca Jansen RN) Gen Hx Other Genetic History: No (07/18/2016 09:22:Blanca Jansen RN) Gen Hx Drugs/Meds since LMP: Yes (07/18/2016 09:22:Eugenia Bennett RN) Gen Hx Medications: pnv, tylenol, zofran (07/18/2016 09:22:Eugenia Bennett, RN)
[2016-09-29] MEDS: IBUPROFEN 800 MG TABLET PO SCH ×2 (05:14→14:49)
--- NOTE | 2016-09-29 06:00 | L&D General Admission ---
General Admit Datetime Report Generated by CPN: 09/29/2016 06:00 INFORMATION Patient Age: 25 (07/18/2016 09:07:QS system process) EDC: 10/03/2016 00:00 (07/18/2016 09:22:Blanca Jansen RN) : 6 (07/18/2016 09:22:Blanca aJnsen RN) Para: 5 (08/26/2016 20:47:Eugenia Bennett RN) Term: 4 (07/18/2016 09:22:Eugenia Bennett RN) : 1 (07/18/2016 09:22:Eugenia Bennett RN) Spontaneous Abortions: 0 (07/18/2016 09:22:Eugenia Bennett RN) Induced Abortions: 0 (07/18/2016 09:22:Eugenia Bennett RN) Livin (07/18/2016 09:22:Eugenia Bennett RN) Cesareans: 0 (07/18/2016 09:22:Eugenia Bennett RN) VBACs: 0 (07/18/2016 09:22:Eugenia Bennett RN) Ectopic: 0 (07/18/2016 09:22:Eugenia Bennett RN) Multiple Births: 0 (07/18/2016 09:22:Eugenia Bennett RN) Baby, Number in Womb: 1 (08/26/2016 20:47:Rosemary Olivares RN) CARE Primary Account Management Specialist: [facility] (07/18/2016 09:22:Blanca Jansen RN) Adequate Care: No (07/18/2016 09:22:Blanca Jansen RN) Height (in): 62 (09/28/2016 09:32:QS system process) ALLERGIES Medication Allergy: No (07/18/2016 09:22:Blanca Jansen RN) Medication Allergies: No Known Allergies (09/27/2016) (09/27/2016 15:12:QS system process) Latex Allergy: No Latex Allergies (07/18/2016 09:22:Blanca Jansen RN) Food Allergies: denies (07/18/2016 09:22:Blanca Jansen RN) Environmental Allergies: denies (07/18/2016 09:22:Blanca Jansen RN) COMMUNICATION Primary Language: Amharic (07/18/2016 09:22:Blanca Jansen RN) Medical Tx Preferred Language: Amharic (07/18/2016 09:22:Blanca Jansen RN) Communication Barrier(s): None (07/18/2016 09:22:ALVIN Patel) DEMOGRAPHICS Address: [address] [place] [address], [address] [address] (07/18/2016 09:07:QS system process) Zipcode: [address] (07/18/2016 09:07:QS system process) Home (07/18/2016 09:07:QS system process) Work (07/18/2016 09:07:QS system process) SSN: [id number] (07/18/2016 09:07:QS system process) Next of Kin Name: THAIS ALVARENGA (07/18/2016 09:07:QS system process) Next of Kin (07/18/2016 09:07:QS system process) Next of Kin Relationship: OR (07/18/2016 09:07:QS system process) Date of : 1990 (07/18/2016 09:07:QS system process) Marital Status: Single (07/18/2016 09:07:QS system process) Sex: Female (07/18/2016 09:07:QS system process) Race: (07/18/2016 09:07:QS system process) Ethnicity: Non- or (07/18/2016 09:07:QS system process) Uatsdin: None (07/18/2016 09:07:QS system process) DRUG AND ALCOHOL USE Alcohol: No (07/18/2016 09:22:Blanca Jansen RN) Cigarettes: Current Some Day Smoker. [id number] (07/18/2016 09:22:Blanca Jansen RN) Marijuana: Yes (07/18/2016 09:22:Eugenia Bennett RN) Cocaine: No (07/18/2016 09:22:Blanca Jansen RN) Other Illicit Drugs: No (07/18/2016 09:22:Blanca Jansen RN) VACCINE HISTORY Influenza Vaccine: No (07/18/2016 09:22:Blanac Jansen RN) Pneumococcal Vaccine: No (07/18/2016 09:22:Blanca Jansen RN) Tetanus Vaccine: No (07/18/2016 09:22:Blanca Jansen RN) Tdap Vaccine: No (07/18/2016 09:22:Blanca Jansen RN) Hepatitis B Vaccine: No (07/18/2016 09:22:Blanca Jansen RN) Criminal Judge: [facility] (07/18/2016 09:22:Blanca Jansen RN) Feeding Preference: Both (07/18/2016 09:22:Eugenia Bennett, AARON) Benefit of Breast Feed Discussed: Yes (07/18/2016 09:22:Eugenia Bennett RN) Circumcision: Yes (07/18/2016 09:22:Blanca Jansen RN) Classes Attended: No (07/18/2016 09:22:Blanca Jansen RN) Tubal Ligation: Yes (07/18/2016 09:22:Blanca Jansen RN) Consent: N/A (07/18/2016 09:22:Blanca Jansen RN) Consent Signed: N/A (07/18/2016 09:22:Blanca Jansen RN) Pain Management Plans: Epidural (07/18/2016 09:22:Blanca Jansen RN) Plans for Labor and Delivery: None (07/18/2016 09:22:Blanca Jansen RN) Support Person: Jose Graham (07/18/2016 09:22:Blanca Jansen RN) Support Person Relationship: Significant Other (07/18/2016 09:22:Blanca Jansen RN) Cultural/Spritual Practice: No (07/18/2016 09:22:Blanca Jansen RN) Spir/Cult Dietary Needs: No (07/18/2016 09:22:Blanca Jansen RN) LIVING SITUATION/DISCHARGE PLAN Living Arrangements: House (07/18/2016 09:22:Blanca Jansen RN) Adequate Access to:: Electric; Heat; Refrigeration; Plumbing/Running water; Phone; Transportation (07/18/2016 09:22:Blanca Jansen RN) WIC Program: Yes (07/18/2016 09:22:Blanca Jansen RN) Discharge Flight Service Specialist Person: Jose (07/18/2016 09:22:Blanca Jansen RN) Person to Help after Discharge: Jose (07/18/2016 09:22:Blanca Jansen RN) Currently Using Commun Resources: Evonne (07/18/2016 09:22:Blanca Jansen RN) Outside Agency/Tester [place] Or [place]: Evonne (07/18/2016 09:22:Blanca Jansen RN) Car Seat for Discharge: No (07/18/2016 09:22:Blanca Jansen RN) Adoption Requested: No (07/18/2016 09:22:Blanca Jansen RN) Pt Contact w/ Post : N/A (07/18/2016 09:22:Blanca Jansen RN) LABS Blood Type: O Positive (07/18/2016 09:22:Eugenia Bennett RN) Antibody Screen: negative (07/18/2016 09:22:Eugenia Bennett RN) Rho(G) this : Not Applicable (07/18/2016 09:22:Mary Beth Campbell RN) Hemoglobin: 9.8 L (09/27/2016 18:20:QS system process) Hematocrit: 30.3 L (09/27/2016 18:20:QS system process) MCV: 71 L (09/27/2016 18:20:QS system process) Group Beta Strep: unknown (07/18/2016 09:22:Eugenia Bennett RN) Gonorrhea: Negative (07/18/2016 09:22:Blanca Jansen RN) Chlamydia: Negative (07/18/2016 09:22:Blanca Jansen RN) RPR/VDRL: Nonreactive (07/18/2016 09:22:Eugenia Bennett RN) Hepatitis B: Negative (07/18/2016 09:22:Eugenia Bennett RN) Rubella: Immune (07/18/2016 09:22:Eugenia Bennett RN) Varicella: Non Susceptible (07/18/2016 09:22:Eugenia Bennett RN) Pap Test: Abnormal (07/18/2016 09:22:Eugenia Bennett RN) OB/PREVIOUS HISTORY Previous Procedures: Ultrasound; NST (07/18/2016 09:22:Eugenia Bennett RN) Current Procedures: Ultrasound (07/18/2016 09:22:Eugenia Bennett RN) History of Previous : No (07/18/2016 09:22:Blanca Jansen RN) History of Gestational Diabetes: No (07/18/2016 09:22:Blanca Jansen RN) History of PIH: No (07/18/2016 09:22:Blanca Jansen RN) History of Incompetent Cervix: No (07/18/2016 09:22:Blanca Jansen RN) History of Placenta Previa/Abrup: No (07/18/2016 09:22:Blanca Jansen RN) History of Macrosomia: No (07/18/2016 09:22:Blanca Jansen RN) History of IUGR: No (07/18/2016 09:22:Blanca Jansen RN) History of Hemorrhage: No (07/18/2016 09:22:Blanca Jansen RN) History of Loss/Stillborn: No (07/18/2016 09:22:Blanca Jansen RN) History of : No (07/18/2016 09:22:Blanca Jansen RN) History of D (Rh) Sensitization: No (07/18/2016 09:22:Blanca Jansen RN) History Recurrent Loss/Stillborn: No (07/18/2016 09:22:Blanca Jansen RN) History Depression/PP Depression: Yes (07/18/2016 09:22:Blanca Jansen RN) History of Uterine Anomaly/MICHAEL: No (07/18/2016 09:22:Blanca Jansen RN) History of Infertility: No (07/18/2016 09:22:Blanca Jansen RN) History of ART Treatment: No (07/18/2016 09:22:Blanca Jansen RN) History of MICHAEL: No (07/18/2016 09:22:Blanca Jansen RN) Comments Obstetrical History: G1: 2005, kiwi G2: 2006 no complications G3: 2007 no complications G4: 2008, baby viral meningitis after sent home from hospital G5: 2014 stillborn (20 some weeks per patient) G6: current, limited PNC (07/18/2016 09:22:Eugenia Bennett RN) MEDICAL HISTORY Med Hx Diabetes: No (07/18/2016 09:22:Blanca Jansen RN) Med Hx Hypertension: No (07/18/2016 09:22:Blanca Jansen RN) Med Hx Heart Disease: No (07/18/2016 09:22:Blanca Jansen RN) Med Hx Autoimmune Disorder: No (07/18/2016 09:22:Blanca Jansen RN) Med Hx Kidney Disease/UTI: No (07/18/2016 09:22:Blanca Jansen RN) Med Hx Neurologic/Epilepsy: No (07/18/2016 09:22:Blanca Jansen RN) Med Hx Psychiatric Disorders: No (07/18/2016 09:22:Blanca Jansen RN) Med Hx Hepatitis/Liver Disease: No (07/18/2016 09:22:Blanca Jansen RN) Med Hx Varicosities/Phlebitis: No (07/18/2016 09:22:Blanca Jansen RN) Med Hx Thyroid Dysfunction: No (07/18/2016 09:22:Blanca Jansen RN) Med Hx Trauma/Violence: No (07/18/2016 09:22:Blanca Jansen RN) Med Hx Blood Transfusion: No (07/18/2016 09:22:Blanca Jansen RN) Med Hx Pulmonary (Asthma,TB): No (07/18/2016 09:22:Blanca Jansen RN) Med Hx Breast: No (07/18/2016 09:22:Blanca Jansen RN) Med Hx FINANCIAL ANALYSIS CONSULTANT Surgery: No (07/18/2016 09:22:Blanca Jansen RN) Med Hx Hospitalization/Surgery: Yes (07/18/2016 09:22:Blanca Jansen RN) Med Hx Anesthetic Complications: No (07/18/2016 09:22:Blanca Jansen RN) Med Hx Abnormal Pap Smear: Yes (07/18/2016 09:22:Eugenia Benentt RN) Other Medical Diseases: No (07/18/2016 09:22:Blanca Jansen RN) Med Hx Significant Family Hx: No (07/18/2016 09:22:Blanca Jansen RN) Details of Med/Surg Hx: D_C: 2013, abnl pap 2016 cancerous cells, depression - not medicated (07/18/2016 09:22:Eugenia Bennett RN) INFECTIOUS HISTORY Inf Hx Gonorrhea: No (07/18/2016 09:22:Blanca Jansen RN) Inf Hx Chlamydia: No (07/18/2016 09:22:Blanca Jansen RN) Inf Hx Syphilis: No (07/18/2016 09:22:Blanca Jansen RN) Inf Hx HIV/AIDS: No (07/18/2016 09:22:Blanca Jansen RN) Inf Hx Human Papilloma Virus: No (07/18/2016 09:22:Blanca Jansen RN) Inf Hx Pt/Partner Genital Herpes: No (07/18/2016 09:22:Blanca Jansen RN) Inf Hx Tuberculosis/Exposure: No (07/18/2016 09:22:Blanca Jansen RN) Inf Hx Hepatitis B,C: No (07/18/2016 09:22:Blanca Jansen RN) Inf Hx Rash or Viral Illness: No (07/18/2016 09:22:Blanca Jansen RN) GENETIC HISTORY Gen Hx Age >=35 at TREVOR: No (07/18/2016 09:22:Blanca Jansen RN) Gen Hx Thalassemia: No (07/18/2016 09:22:Blanca Jansen RN) Gen Hx Congenital Heart Defect: No (07/18/2016 09:22:Blanca Jansen RN) Gen Hx Neural Tube Defect: No (07/18/2016 09:22:Blanca Jansen RN) Gen Hx Down's Syndrome: No (07/18/2016 09:22:Blanca Jansen RN) Gen Hx Grover-Sachs: No (07/18/2016 09:22:Blanca Jansen RN) Gen Hx Casimiro: No (07/18/2016 09:22:Blanca Jansen RN) Gen Hx Familial Dysautonomia: No (07/18/2016 09:22:Blanca Jansen RN) Gen Hx Sickle Cell Disease/Trait: No (07/18/2016 09:22:Blanca Jansen RN) Gen Hx Hemophilia/Blood Disorder: No (07/18/2016 09:22:Blanca Jansen RN) Gen Hx Muscular Dystrophy: No (07/18/2016 09:22:Blanca Jansen RN) Gen Hx Cystic Fibrosis: No (07/18/2016 09:22:Blanca Jansen RN) Gen Hx Huntingtons Chorea: No (07/18/2016 09:22:Blanca Jansen RN) Gen Hx Mental Retardation/Autism: No (07/18/2016 09:22:Blanca Jansen RN) Gen Hx Tested for Fragile X: No (07/18/2016 09:22:Blanca Jansen RN) Gen Hx Other Inher/Chromosomal: No (07/18/2016 09:22:Blanca Jansen RN) Gen Hx Maternal Metabolic DO: No (07/18/2016 09:22:Blanca Jansen RN) Gen Hx Pt Father or FOB Defect: No (07/18/2016 09:22:Blanca Jansen RN) Gen Hx Other Genetic History: No (07/18/2016 09:22:Blanca Jansen RN) Gen Hx Drugs/Meds since LMP: Yes (07/18/2016 09:22:Eugenia Bennett RN) Gen Hx Medications: pnv, tylenol, zofran (07/18/2016 09:22:Eugenia Bennett, RN)
--- NOTE | 2016-09-29 06:15 | L&D Care Plan ---
LD CARE PLANS Datetime Report Generated by CPN: 09/29/2016 06:15 Datetime: 09/27/2016 17:07 Pain State: Risk For (ALVIN Ribera) Related To: Labor and Delivery Process; Complication(s) of (ALVIN Ribera) Goal(s): Patients Pain will be Assessed and Managed; Patient will Verbalize Adequate Relief of Pain or the Ability to [place] with Current Pain (ALVIN Ribera) Interventions: Assess Pain Severity on Scale of 0 (None) to 5 (Severe); Assess Type, Location and Intensity of Pain Each Time Client Reports Discomfort and Notify Provider if Unusal Pain Develops; Encourage Proper Breathing and Relaxation Techniques; Offer Alternatives Such as Repositioning, Calm Environment, Massages, Diversional Activities, Ice Pack, Splinting, and Ambulation; Administer Analgesics as Ordered; Assist with Epidural Placement as Appropriate; Evaluate Therapeutic Effectiveness of Medication and Treatments (ALVIN Ribera) Outcome: Patient will Report Absence or Relief of Pain Consistent with Established Pain Goal (ALVIN Ribera) Outcome: Patient will have a Decrease in Signs and Symptoms of Discomfort (ALVIN Ribera) Outcome: Pain will be Controlled During Procedures (ALVIN iRbera) Anxiety State: Actual (ALVIN Ribera) Related To: Labor and Delivery Process; Situational Crisis (ALVIN Ribera) Goal(s): Patient will have Decreased Anxiety and be able to Function at Acceptable Levels (ALVIN Ribera) Interventions: Assess Verbal and Nonverbal Behavioral Indicators of Anxiety; Assist Patient to Identify and Verbalize Symptoms of Anxiety; Identify and Demonstrate Techniques to Control Anxiety; Assist Patient with Coping Mechanisms to Manage Anxiety; Provide Theraputic Touch for the Patient; Explain to Patient, Using a Calm Reassuring Approach and Nonmedical Terms, All Activities, Procedures, and Concerns; Instruct Patient and Family about Post Discharge Care, Limitations, Symptoms to Report and Resources Available (ALVIN Ribera) Outcome: Patient will Identify, Verbalize and Demonstrate Techniques to Control Anxiety (ALVIN Ribera) Outcome: Patient's Posture, Facial Expressions, Gestures and Activity Level will Reflect Decreased Anxiety (ALVIN Ribera) Outcome: Patient will Verbalize a Sense of Control and/or Acceptance of the Situation (ALVIN Ribera) Outcome: Patient will Identify and Utilize Support Person (ALVIN Ribera) Knowledge Deficit State: Actual (ALVIN Ribera) Related To: Labor and Delivery Process; Treatment and Procedures; Impending Alterations in Family Dynamics (ALVIN Ribera) Goal(s): Patient will Accurately Verbalize Understanding of Plan of Care and Treatment; Patient and Family will Accurately Verbalize Understanding of the Disease Process (ALVIN Ribera) Interventions: Assess Motivation and Willingness of Patient/Family to Learn; Assess Preferred Learning Mode: One to One Instruction, Reading, Videos, Group Discussion or Demonstration; Assess Barriers to Learning: Pain, Emotional State, Language Barrier, Cognitive Impairment, Visual or Hearing Deficits; Assess Patient and Family Knowledge of Disease Process, Medications and Treatment; Discuss Therapy and/or Treatment Options, Describe Rationale Behind Management, Therapy and Treatment Recommendations; Instruct Patient and Family on Signs and Symptoms to Report; Instruct Patient and Family on Medication Effects and Side Effects; Provide Appropriate and Timely Education Using Multiple Techniques; Provide Patient and Family with Support Group Information and Resources; Give Clear and Thorough Explanations and Demonstrations (ALVIN Ribera) Outcome: Patient and Family will Verbalize Understanding of Condition, Treatment and Signs and Symptoms to Report (ALVIN Ribera) Outcome: Patient will Identify Perceived Learning Needs and Express Motivation to Learn (ALVIN Ribera) Outcome: Patient will Verbalize Understanding of Desired Content, and/or Performs Desired Skill Prior to Discharge (ALVIN Ribera) Infection State: Risk For (ALVIN Ribera) Related To: Prolonged Labor or Induction (ALVIN Ribera) Goal(s): The Patient will be Free of Infection, Vital Signs Stable and Lab Work within Normal Parameters (ALVIN Ribera) Interventions: Instruct and Reinforce Proper Handwashing, Hygiene, and Care Techniques to Patient and Family; Monitor Vital Signs; Monitor Patient for the Following Signs of Infection: Fever, Abdominal Tenderness, Unusual Discharge; Monitor Aminiotic Fluid, Urine and Lochia for Color and Odor; Observe Wounds, Incisions and Invasive Line Sites for Redness, Drainage and Edema; Assess IV Sites per Hospital Policy; Monitor Lab and Test Results and Notify Provider of Abnormal Findings; Assess Nutritional Status and Promote Good Nutrition (ALVIN Ribera) Outcome: Patient will Remain Free of Infection (ALVIN Ribera) Outcome: Infection will be Recognized Early to Allow for Prompt Treatment (ALVIN Ribera) Outcome: Patient will have Vital Signs Within Expected Range (ALVIN Ribera) Fluid Volume State: Risk For (ALVIN Ribera) Related To: Surgical Procedures; Prolonged Labor or Induction (ALVIN Ribera) Goal(s): Patient will Achieve and Maintain a Balanced Fluid Volume Status; Hemodynamically Stable (ALVIN Ribera) Interventions: Monitor Vital Signs; Auscultate Breath Sounds; Monitor Patient for Skin Turgor, Mucous Membranes, Dry Skin, Weakness, Headaches and Confusion; Provide Oral Fluids as Ordered; Initiate and Maintain Intravenous Fluids as Ordered; Monitor Intake and Output as Indicated Per Patient Status; Accurately Measure Blood Loss; Monitor Lab and Test Results as Obtained and Notify Provider of Abnormal Findings; Monitor Patient's Weight (ALVIN Ribera) Outcome: Patient will have Clear Lung Sounds (ALVIN Ribera) Outcome: Patient will have Vital Signs within Expected Range (ALVIN Ribera) Outcome: Urine Output will be within Expected Range (ALVIN Ribera) Outcome: Patient will have Minimal Generalized or Upper Extremity Edema (ALVIN Ribera) Injury State: Risk For (ALVIN Ribera) Related To: Labor and Delivery Process; Anesthesia (ALVIN Ribera) Goal(s): Patient will Remain Free from Injury (ALVIN Ribera) Interventions: Monitoring as per Hospital Protocol; Assess Neurological Status; Perform Risk Assessment of Patients with Induction and ; Perform Fall Risk Assessment and Prevention per Hospital Protocol; Perform DVT Risk Assessment and Prophylaxis per Hospital Protocol; Ensure that Oxygen, Suction, and Resuscitation Medications and Equipment are Readily Available; Confirm Patient ID Prior to Procedure(s) and Medication Administration per Hospital Policy (ALVIN Ribera) Outcome: Successful Fall Risk Prevention (ALVIN Ribera) Outcome: Patient will Deliver without Adverse Sequela (ALVIN Ribera) Outcome: Patient's Neurological Status will Remain Stable (ALVIN Ribera) Impaired Skin Integrity State: Risk For (ALVIN Ribera) Related To: Vaginal Delivery; Surgical Procedures (ALVIN Ribera) Goal(s): Patient will Maintain Optimal Skin Integrity, Free of Breakdown, Injury or Infection (ALVIN Ribera) Interventions: Complete Screening for Pressure Ulcer Risk and Initiate Protocol per Hospital Policy; Monitor Site of Skin Impairment for Color Changes, Redness, Swelling, Warmth, Pain or Other Signs of Infection; Encourage and Assist with Position Changes; Monitor Patient's Mobility Status; Provide Adequate Nutrition and Fluids; Teach Patient Appropriate Hygienic Care; Teach Patient/Family Skin Care Management (ALVIN Ribera) Parenting Impaired State: Not Applicable (ALVIN Ribera) Nutrition State: Not Applicable (Esme Yang, RNC) Grieving State: Not Applicable (Esme Yang, RNC) Additional Care Plan State: Not Applicable (Esme Soria, RNC)
[2016-09-29 07:48] LABS: HEMATOCRIT 28.7 % (36.0-47.0); HEMOGLOBIN 9.1 g/dL (12.0-15.5); HGB HCT DIFFERENCE -1.4; MEAN CORPUSCULAR HEMOGLOBIN 22.5 pg (27.0-33.4); MEAN CORPUSCULAR HGB CONC 31.7 g/dL (32.0-36.0); MEAN CORPUSCULAR VOLUME 71 fl (80-97); RED BLOOD COUNT 4.03 10^6/uL (3.72-5.28); RED CELL DISTRIBUTION WIDTH 15.6 % (11.5-14.0); WHITE BLOOD COUNT 7.6 10^3/uL (4.0-10.5)
[2016-09-29 08:45] VITALS: BP 101/65
--- NOTE | 2016-09-29 09:55 | PDOC PROGRESS REPORT ---
Subjective-OB Subjective: Post Delivery Day: 25 year old. Denies any needs at this time Physical Exam (OB) Vital Signs: Temp Pulse Resp BP Pulse Ox 98.5 F 60 15 101/65 99 09/29/16 07:55 09/29/16 07:55 09/29/16 07:55 09/29/16 07:55 09/29/16 07:55 Intake & Output 09/28/16 09/29/16 09/30/16 06:59 06:59 06:59 Weight 77.45 kg - PIH/Pre-Eclampsia DTR's: 2 + Clonus: Negative Headache: Absent Epigastric Pain: No Visual Changes: No - Lochia Lochia Amount: Small 10-25 ml Lochia Color: Rubra/Red - Abdomen Description: Soft, Round Hernia Present: No Bowel Sounds: Normoactive Flatus Presence: Present Stool: No Fundal Description: Firm, Midline Fundal Height: u/u - u/2 Objective-Diagnostic Laboratory: 09/29/16 07:28 09/29/16 07:28 WBC 7.6 RBC 4.03 Hgb 9.1 L Hct 28.7 L MCV 71 L MCH 22.5 L MCHC 31.7 L RDW 15.6 H Plt Count 278 09/27/16 14:50 Vaginal/Anorectal Group B Streptococcus Culture - Final NO GROUP B STREPTOCOCCUS RECOVERED Assessment and Plan(PN) - Time Spent with Patient Medications reviewed and adjusted accordingly: Yes - Disposition Anticipated Discharge: Home
[2016-09-29] MEDS: PRENATAL VITAMIN W-O CA NO5/FE FUMARATE/FA CAPSULE PO SCH (10:26)
[2016-09-29] MEDS: DOCUSATE SODIUM 100 MG CAPSULE PO SCH ×2 (10:26→17:31)
[2016-09-29] MEDS: SENNOSIDES/DOCUSATE 8.6-50 MG 1 EACH TABLET PO SCH (10:26)
[2016-09-29] MEDS: FERROUS SULFATE 325 MG TABLET PO SCH ×2 (10:26→17:31)
[2016-09-29] MEDS: FAMOTIDINE 20 MG TABLET PO SCH (10:27)
[2016-09-29] MEDS: ACETAMINOPHEN WITH CODEINE #3 TABLET PO PRN (19:48)
--- NOTE | 2016-09-30 06:00 | L&D General Admission ---
General Admit Datetime Report Generated by CPN: 09/30/2016 06:00 INFORMATION Patient Age: 25 (07/18/2016 09:07:QS system process) EDC: 10/03/2016 00:00 (07/18/2016 09:22:Blanca Jansen RN) : 6 (07/18/2016 09:22:Blanca Jansen RN) Para: 5 (08/26/2016 20:47:Eugenia Bennett RN) Term: 4 (07/18/2016 09:22:Eugenia Bennett RN) : 1 (07/18/2016 09:22:Eugenia Bennett RN) Spontaneous Abortions: 0 (07/18/2016 09:22:Eugenia Bennett RN) Induced Abortions: 0 (07/18/2016 09:22:Eugenia Bennett RN) Livin (07/18/2016 09:22:Eugenia Bennett RN) Cesareans: 0 (07/18/2016 09:22:Eugenia Bennett RN) VBACs: 0 (07/18/2016 09:22:Eugenia Bennett RN) Ectopic: 0 (07/18/2016 09:22:Eugenia Bennett RN) Multiple Births: 0 (07/18/2016 09:22:Eugenia Bennett RN) Baby, Number in Womb: 1 (08/26/2016 20:47:Rosemary Olivares RN) CARE Primary Rubber Goods Inspector: [facility] Department (07/18/2016 09:22:Blanca Jansen RN) Adequate Care: No (07/18/2016 09:22:Blanca Jansen RN) Height (in): 62 (09/29/2016 10:47:QS system process) ALLERGIES Medication Allergy: No (07/18/2016 09:22:Blanca Jansen RN) Medication Allergies: No Known Allergies (09/27/2016) (09/27/2016 15:12:QS system process) Latex Allergy: No Latex Allergies (07/18/2016 09:22:Blanca Jansen RN) Food Allergies: denies (07/18/2016 09:22:Blanca Jansen RN) Environmental Allergies: denies (07/18/2016 09:22:Blanca Jansen RN) COMMUNICATION Primary Language: Mongolian (07/18/2016 09:22:Blanca Jansen RN) Medical Tx Preferred Language: Mongolian (07/18/2016 09:22:Blanca Jansen RN) Communication Barrier(s): None (07/18/2016 09:22:ALVIN Patel) DEMOGRAPHICS Address: [address] [place] [address], [address] [address] (07/18/2016 09:07:QS system process) Zipcode: [address] (07/18/2016 09:07:QS system process) Home (07/18/2016 09:07:QS system process) Work (07/18/2016 09:07:QS system process) SSN: [id number] (07/18/2016 09:07:QS system process) Next of Kin Name: THAIS ALVARENGA (07/18/2016 09:07:QS system process) Next of Kin (07/18/2016 09:07:QS system process) Next of Kin Relationship: OR (07/18/2016 09:07:QS system process) Date of : 1990 (07/18/2016 09:07:QS system process) Marital Status: Single (07/18/2016 09:07:QS system process) Sex: Female (07/18/2016 09:07:QS system process) Race: (07/18/2016 09:07:QS system process) Ethnicity: Non- or (07/18/2016 09:07:QS system process) Catholic: None (07/18/2016 09:07:QS system process) DRUG AND ALCOHOL USE Alcohol: No (07/18/2016 09:22:Blanca Jansen RN) Cigarettes: Current Some Day Smoker. [id number] (07/18/2016 09:22:Blanca Jansen RN) Marijuana: Yes (07/18/2016 09:22:Eugenia Bennett RN) Cocaine: No (07/18/2016 09:22:Blanca Jansen RN) Other Illicit Drugs: No (07/18/2016 09:22:Blanca Jansen RN) VACCINE HISTORY Influenza Vaccine: No (07/18/2016 09:22:Blanca Jansen RN) Pneumococcal Vaccine: No (07/18/2016 09:22:Blanca Jansen RN) Tetanus Vaccine: No (07/18/2016 09:22:Blanca Jansen RN) Tdap Vaccine: No (07/18/2016 09:22:Blanca Jansen RN) Hepatitis B Vaccine: No (07/18/2016 09:22:Blanca Jansen RN) Security Site Supervisor: [facility] (07/18/2016 09:22:Blanca Jansen RN) Feeding Preference: Both (07/18/2016 09:22:Eugenia Bennett, AARON) Benefit of Breast Feed Discussed: Yes (07/18/2016 09:22:Eugenia Bennett RN) Circumcision: Yes (07/18/2016 09:22:Blanca Jansen RN) Classes Attended: No (07/18/2016 09:22:Blanca Jansen RN) Tubal Ligation: Yes (07/18/2016 09:22:Blanca Jansen RN) Consent: N/A (07/18/2016 09:22:Blanca Jansen RN) Consent Signed: N/A (07/18/2016 09:22:Blanca Jansen RN) Pain Management Plans: Epidural (07/18/2016 09:22:Blanca Jansen RN) Plans for Labor and Delivery: None (07/18/2016 09:22:Blanca Jansen RN) Support Person: Jose Graham (07/18/2016 09:22:Blanca Jansen RN) Support Person Relationship: Significant Other (07/18/2016 09:22:Blanca Jansen RN) Cultural/Spritual Practice: No (07/18/2016 09:22:Blanca Jansen RN) Spir/Cult Dietary Needs: No (07/18/2016 09:22:Blanca Jansen RN) LIVING SITUATION/DISCHARGE PLAN Living Arrangements: House (07/18/2016 09:22:Blanca Jansen RN) Adequate Access to:: Electric; Heat; Refrigeration; Plumbing/Running water; Phone; Transportation (07/18/2016 09:22:Blanca Jansen RN) WIC Program: Yes (07/18/2016 09:22:Blanca Jansen RN) Discharge Physicist Cryogenics Person: Jose (07/18/2016 09:22:Blanca Jansen RN) Person to Help after Discharge: Jose (07/18/2016 09:22:Blanca Jansen RN) Currently Using Commun Resources: Evonne (07/18/2016 09:22:Blanca Jansen RN) Outside Agency/Television Actor: Evonne (07/18/2016 09:22:Blanca Jansen RN) Car Seat for Discharge: No (07/18/2016 09:22:Blanca Jansen RN) Adoption Requested: No (07/18/2016 09:22:Blanca Jansen RN) Pt Contact w/ Post : N/A (07/18/2016 09:22:Blanca Jansen RN) LABS Blood Type: O Positive (07/18/2016 09:22:Eugenia Bennett RN) Antibody Screen: negative (07/18/2016 09:22:Eugenia Bennett RN) Rho(G) this : Not Applicable (07/18/2016 09:22:Mary Beth Campbell RN) Hemoglobin: 9.1 L (09/29/2016 07:28:QS system process) Hematocrit: 28.7 L (09/29/2016 07:28:QS system process) MCV: 71 L (09/29/2016 07:28:QS system process) Group Beta Strep: 1 NO GROUP B STREPTOCOCCUS RECOVERED (09/27/2016 14:50:QS system process) Gonorrhea: Negative (07/18/2016 09:22:Blanca Jansen RN) Chlamydia: Negative (07/18/2016 09:22:Blanca Jansen RN) RPR/VDRL: Nonreactive (07/18/2016 09:22:Eugenia Bennett RN) Hepatitis B: Negative (07/18/2016 09:22:Eugenia Bennett RN) Rubella: Immune (07/18/2016 09:22:Eugenia Bennett RN) Varicella: Non Susceptible (07/18/2016 09:22:Eugenia Bennett RN) Pap Test: Abnormal (07/18/2016 09:22:Eugenia Bennett RN) OB/PREVIOUS HISTORY Previous Procedures: Ultrasound; NST (07/18/2016 09:22:Eugenia Bennett RN) Current Procedures: Ultrasound (07/18/2016 09:22:Eugenia Bennett RN) History of Previous : No (07/18/2016 09:22:Blanca Jansen RN) History of Gestational Diabetes: No (07/18/2016 09:22:Blanca Jansen RN) History of PIH: No (07/18/2016 09:22:Blanca Jansen RN) History of Incompetent Cervix: No (07/18/2016 09:22:Blanca Jansen RN) History of Placenta Previa/Abrup: No (07/18/2016 09:22:Blanca Jansen RN) History of Macrosomia: No (07/18/2016 09:22:Blanca Jansen RN) History of IUGR: No (07/18/2016 09:22:Blanca Jansen RN) History of Hemorrhage: No (07/18/2016 09:22:Blanca Jansen RN) History of Loss/Stillborn: No (07/18/2016 09:22:Blanca Jansen RN) History of : No (07/18/2016 09:22:Blanca Jansen RN) History of D (Rh) Sensitization: No (07/18/2016 09:22:Blanca Jansen RN) History Recurrent Loss/Stillborn: No (07/18/2016 09:22:Blanca Jansen RN) History Depression/PP Depression: Yes (07/18/2016 09:22:Blanca Jansen RN) History of Uterine Anomaly/MICHAEL: No (07/18/2016 09:22:Blanca Jansen RN) History of Infertility: No (07/18/2016 09:22:Blanca Jansen RN) History of ART Treatment: No (07/18/2016 09:22:Blanca Jansen RN) History of MICHAEL: No (07/18/2016 09:22:Blanca Jansen RN) Comments Obstetrical History: G1: 2005, kiwi G2: 2006 no complications G3: 2007 no complications G4: 2009, baby viral meningitis after sent home from hospital G5: 2014 stillborn (20 some weeks per patient) G6: current, limited PNC (07/18/2016 09:22:Eugenia Bennett RN) MEDICAL HISTORY Med Hx Diabetes: No (07/18/2016 09:22:Blanca Jansen RN) Med Hx Hypertension: No (07/18/2016 09:22:Blanca Jansen RN) Med Hx Heart Disease: No (07/18/2016 09:22:Blanca Jansen RN) Med Hx Autoimmune Disorder: No (07/18/2016 09:22:Blanca Jansen RN) Med Hx Kidney Disease/UTI: No (07/18/2016 09:22:Blanca Jansen RN) Med Hx Neurologic/Epilepsy: No (07/18/2016 09:22:Blanca Jansen RN) Med Hx Psychiatric Disorders: No (07/18/2016 09:22:Blanca Jansen RN) Med Hx Hepatitis/Liver Disease: No (07/18/2016 09:22:Blanca Jansen RN) Med Hx Varicosities/Phlebitis: No (07/18/2016 09:22:Blanca Jansen RN) Med Hx Thyroid Dysfunction: No (07/18/2016 09:22:Blanca Jansen RN) Med Hx Trauma/Violence: No (07/18/2016 09:22:Blanca Jansen RN) Med Hx Blood Transfusion: No (07/18/2016 09:22:Blanca Jansen RN) Med Hx Pulmonary (Asthma,TB): No (07/18/2016 09:22:Blanca Jansen RN) Med Hx Breast: No (07/18/2016 09:22:Blanca Jansen RN) Med Hx MOLECULAR BIOLOGY DIRECTOR Surgery: No (07/18/2016 09:22:Blanca Jansen RN) Med Hx Hospitalization/Surgery: Yes (07/18/2016 09:22:Blanca Jansen RN) Med Hx Anesthetic Complications: No (07/18/2016 09:22:Blanca Jansen RN) Med Hx Abnormal Pap Smear: Yes (07/18/2016 09:22:Eugenia Bennett RN) Other Medical Diseases: No (07/18/2016 09:22:Blanca Jansen RN) Med Hx Significant Family Hx: No (07/18/2016 09:22:Blanca Jansen RN) Details of Med/Surg Hx: D_C: 2013, abnl pap 2016 cancerous cells, depression - not medicated (07/18/2016 09:22:Eugenia Bennett RN) INFECTIOUS HISTORY Inf Hx Gonorrhea: No (07/18/2016 09:22:Blanca Jansen RN) Inf Hx Chlamydia: No (07/18/2016 09:22:Blanca Jansen RN) Inf Hx Syphilis: No (07/18/2016 09:22:Blanca Jansen RN) Inf Hx HIV/AIDS: No (07/18/2016 09:22:Blanca Jansen RN) Inf Hx Human Papilloma Virus: No (07/18/2016 09:22:Blanca Jansen RN) Inf Hx Pt/Partner Genital Herpes: No (07/18/2016 09:22:Blanca Jansen RN) Inf Hx Tuberculosis/Exposure: No (07/18/2016 09:22:Blanca Jansen RN) Inf Hx Hepatitis B,C: No (07/18/2016 09:22:Blanca Jansen RN) Inf Hx Rash or Viral Illness: No (07/18/2016 09:22:Blanca Jansen RN) GENETIC HISTORY Gen Hx Age >=35 at TREVOR: No (07/18/2016 09:22:Blanca Jansen RN) Gen Hx Thalassemia: No (07/18/2016 09:22:Blanca Jansen RN) Gen Hx Congenital Heart Defect: No (07/18/2016 09:22:Blanca Jansen RN) Gen Hx Neural Tube Defect: No (07/18/2016 09:22:Blanca Jansen RN) Gen Hx Down's Syndrome: No (07/18/2016 09:22:Blanca Jansen RN) Gen Hx Grover-Sachs: No (07/18/2016 09:22:Blanca Jansen RN) Gen Hx Casimiro: No (07/18/2016 09:22:Blanca Jansen RN) Gen Hx Familial Dysautonomia: No (07/18/2016 09:22:Blanca Jansen RN) Gen Hx Sickle Cell Disease/Trait: No (07/18/2016 09:22:Blanca Jansen RN) Gen Hx Hemophilia/Blood Disorder: No (07/18/2016 09:22:Blanca Jansen RN) Gen Hx Muscular Dystrophy: No (07/18/2016 09:22:Blanca Jansen RN) Gen Hx Cystic Fibrosis: No (07/18/2016 09:22:Blanca Jansen RN) Gen Hx Huntingtons Chorea: No (07/18/2016 09:22:Blanca Jansen RN) Gen Hx Mental Retardation/Autism: No (07/18/2016 09:22:Blanca Jansen RN) Gen Hx Tested for Fragile X: No (07/18/2016 09:22:Blanca Jansen RN) Gen Hx Other Inher/Chromosomal: No (07/18/2016 09:22:Blanca Jansen RN) Gen Hx Maternal Metabolic DO: No (07/18/2016 09:22:Blanca Jansen RN) Gen Hx Pt Father or FOB Defect: No (07/18/2016 09:22:Blanca Jansen RN) Gen Hx Other Genetic History: No (07/18/2016 09:22:Blanca Jansen RN) Gen Hx Drugs/Meds since LMP: Yes (07/18/2016 09:22:Eugenia Bennett RN) Gen Hx Medications: pnv, tylenol, zofran (07/18/2016 09:22:Eugenia Bennett RN)
--- NOTE | 2016-09-30 06:00 | L&D Current Admission ---
Current Admit Datetime Report Generated by CPN: 09/30/2016 06:00 ADMISSION INFORMATION Current Admit Date/Time: 09/27/2016 17:25 (09/27/2016 14:58:Eugenia Bennett RN) Reason for Admission: Induction of Labor (09/27/2016 14:58:Eugenia Bennett RN) Chief Complaint: Contractions (09/27/2016 14:58:Eugenia Bennett RN) Medications During : Vitamin; Acetaminophen (Tylenol); Ondansetron (Zofran) (09/27/2016 14:58:Eugenia Bennett RN) EGA per Dates: 39.1 (09/27/2016 14:58:QS system process) Method of Arrival: Wheelchair (09/27/2016 14:58:Eugenia Bennett RN) Admitted From: Home (09/27/2016 14:58:Eugenia Bennett RN) Reason for Induction: Intrauterine Growth Retardation (09/27/2016 14:58:Eugenia Bennett RN) Records Available: Yes (09/27/2016 14:58:Eugenia Bennett RN) General Admission Information: Reviewed (09/27/2016 14:58:Eugenia Bennett RN) General Admission Reviewed By: Camilla Bennett RN (09/27/2016 14:58:Eugenia Bennett RN) BELONGINGS/ADVANCED DIRECTIVES Valuables/Personal Effects: None (09/27/2016 14:58:Eugenia Bennett RN) Other Belongings: see consents (09/27/2016 14:58:Eugenia Bennett RN) Disposition of Belongings: Sent Home (09/27/2016 14:58:Eugenia Bennett RN) Advance Direct for Healthcare: No, and Wants No Information (09/27/2016 14:58:Eugenia Bennett RN) Durable Power of Ham Rolling Machine Operator: No (09/27/2016 14:58:Eugenia Bennett RN) Living Will: No (09/27/2016 14:58:Eugenia Bennett RN) Organ Donor: Yes (09/27/2016 14:58:Eugenia Bennett RN) Pt Rights Information Given: Yes (09/27/2016 14:58:Eugenia Bennett RN) Pt Understands Pt Rights: Yes (09/27/2016 14:58:Eugenia Bennett RN) LEARNING ASSESSMENT Knowledge Level: Understands L_D Process; Understands Care Activities; Had Pre-Hospital Education; Understands Diagnosis (09/27/2016 14:58:Eugenia Bennett RN) Barriers to Learning: None (09/27/2016 14:58:Eugenia Bennett RN) Learning Readiness: Motivated (09/27/2016 14:58:Eugenia Bennett RN) Learns Best By: 1 to 1 Instruction; Demonstration (09/27/2016 14:58:Eugenia Bennett RN) Learning Needs: Labor and Delivery Process; Pain Management; Symptoms to Report; Treatment Plan; Medication; Diagnosis; Nutrition; Equipment; Care; Community Resources (09/27/2016 14:58:Eugenia Bennett RN) DOMESTIC VIOLANCE SCREENING Dom Viol Threatened/Hurt: No (09/27/2016 14:58:Eugenia Bennett RN) Hx of Abuse/Neglect past 2yrs: No (09/27/2016 14:58:Eugenia Bennett RN) Feel Unsafe Going Home: No (09/27/2016 14:58:Eugenia Bennett RN) Addt'l Observ Indicating Abuse: No (09/27/2016 14:58:Eugenia Bennett RN) Reason Unable to Complete Screen: N/A, Screen Completed (09/27/2016 14:58:Eugenia Bennett RN) Considered Personal Harm/Suicide: No (09/27/2016 14:58:Eugenia Bennett RN) NUTRITIONAL/FUNCTIONAL SCREENING Problem with Appetite >5 Days: No (09/27/2016 14:58:Eugenia Bennett RN) Chew/Swallow Difficulties: No (09/27/2016 14:58:Eugenia Bennett RN) Inappropriate Wt Gain/Loss: No (09/27/2016 14:58:Eugenia Bennett RN) Presence Skin Breakdown/Ulcer: No (09/27/2016 14:58:Eugenia Bennett RN) Special Diet: No (09/27/2016 14:58:Eugenia Bennett RN) Pt Requests Scrap Drop Engineer Visit: No (09/27/2016 14:58:Eugenia Bennett RN) Hx of Any of the Following?: N/A (09/27/2016 14:58:Eugenia Bennett RN) New Diagnosis of: N/A (09/27/2016 14:58:Eugenia Bennett RN) Requires Assist w/Ambulation: No (09/27/2016 14:58:Eugenia Bnenett RN) Uses Assist Device to Ambulate: No (09/27/2016 14:58:Eugenia Bennett RN) Pt Requires Help w/ADL's: No (09/27/2016 14:58:Eugenia Bennett RN)
== END 2016-09-29 20:46 | disposition home or self-care (01) | DRG 775 ==
LOC: LC 14:12 → LR 16:59 → 2S 09-28 02:48
PROVIDERS: ADMIT Specialist; ATTEND Specialist
PROC: 3E033VJ Introduction of Other Hormone into Peripheral Vein, Percutaneous Approach (ICD-10-PCS; 2016-09-27)
PROC: 10E0XZZ Delivery of Products of Conception, External Approach (ICD-10-PCS; principal; 2016-09-28)
DX: O36.5930 Maternal care for other known or suspected poor fetal growth, third trimester, not applicable or unspecified (principal); O99.324 Drug use complicating childbirth; O69.81X0 Labor and delivery complicated by cord around neck, without compression, not applicable or unspecified; O99.334 Smoking (tobacco) complicating childbirth; F12.90 Cannabis use, unspecified, uncomplicated; Z3A.39 39 weeks gestation of pregnancy; Z37.0 Single live birth; O09.33 Supervision of pregnancy with insufficient antenatal care, third trimester
CPT/HCPCS: 36415; 76815; 80307; 81005; 84112; 85027; 86592; 86850; 86900; 86901; 87081; 87210; 87491; 87591; 88307; J2540; J2590; J3490; S0119

== ENCOUNTER 2017-08-22 17:25 | Emergency (ER) | payer MEDICAID ==
[2017-08-22 18:00] VITALS: BP 93/63
== END 2017-08-22 18:58 | disposition left against medical advice (07) ==
LOC: ER 17:25
DX: Z53.21 Procedure and treatment not carried out due to patient leaving prior to being seen by health care provider (principal)

== ENCOUNTER → 2018-08-22 | Outpatient (CLI) | payer SELFPAY ==
--- NOTE | 2018-08-22 15:52 | RADIOLOGY REPORT (SQ) ---
EXAM DESCRIPTION: U/S OB 14+ TRNABD 1GES W/O DOP COMPLETED DATE/TIME: 08/22/2018 3:18 pm REASON FOR STUDY: ENCOUNTER FOR SUPERVISION OF OTHER NORMAL , SECOND TRIMESTER Z34.82 ENCO UNTER FOR SUPRVSN OF NORMAL , SECOND TRI COMPARISON: None. TECHNIQUE: Static and Dynamic grayscale imaging performed of gravid uterus using transabdominal appr oach. Additional selected color Doppler and spectral images recorded. All stored on PACS. LIMITATIONS: None. FINDINGS: FETUSES SEEN:1 EGA: 23 weeks 3 days Calculated using BPD,FL,HC,AC documented on images. No discrepancy with clinica l dates. TREVOR: 12/16/2018 EFW: 618 grams PERCENTILE: Not available WILLIAMS: Largest vertical pocket 3.8 cm. Subjective borderline oligohydramnios. PLACENTA: Posterior. GRADE: I PRESENTATION: Cephalic. ANATOMY: HEART RATE: 143 beats per minute. FOUR CHAMBER HEART: Visualized. THREE VESSEL CORD: Yes. CORD INSERTION: Poorly visualized. KIDNEYS AND BLADDER: Visualized. Appear normal. STOMACH: Visualized. Appears normal. SPINE: Normal as visualized. BRAIN AND LATERAL VENTRICLES: Visualized. Appear normal. OTHER: No other significant finding. MATERNAL ADNEXA: Maternal ovaries not visualized. CERVICAL LENGTH: 3.1 cm. Closed. OTHER: No other significant finding. IMPRESSION: LIVING INTRAUTERINE . ESTIMATED GESTATIONAL AGE 23 weeks 3 days Subjective borderline oligohydramnios. Trimester of : Second trimester - 13 weeks 1 day to 27 weeks 6 days. TECHNICAL DOCUMENTATION: JOB ID: [id number] [employer]- All Rights Reserved Reading location - IP/workstation name: [email or web address]
== END ==
LOC: RAD 15:13
PROVIDERS: ATTEND Nurse Practitioner
DX: Z34.82 Encounter for supervision of other normal pregnancy, second trimester (principal)
CPT/HCPCS: 76805

== ENCOUNTER 2018-09-28 19:48 | Outpatient (CLI) | payer MEDICAID ==
[2018-09-28 20:44] LABS: APPEARANCE,URINE SLIGHTLY-CLOUDY; BILIRUBIN,URINE NEGATIVE (NEGATIVE); COLOR,URINE YELLOW; GLUCOSE, URINE 50 mg/dL (NEGATIVE); KETONES,URINE NEGATIVE (NEGATIVE); LEUKOCYTE ESTERASE,URINE TRACE (NEGATIVE); NITRITE,URINE NEGATIVE (NEGATIVE); PROTEIN,URINE 30 mg/dL (NEGATIVE); URINE SPECIFIC GRAVITY 1.029
[2018-09-28 21:00] LABS: URINE AMPHETAMINES SCREEN NEGATIVE; URINE BARBITURATES SCREEN NEGATIVE; URINE BENZODIAZEPINES SCREEN NEGATIVE; URINE COCAINE SCREEN NEGATIVE; URINE METHADONE SCREEN NEGATIVE; URINE PHENCYCLIDINE SCREEN NEGATIVE
[2018-09-28 21:13] LABS: URINE MARIJUANA (THC) SCREEN UNCONFIRMED POSITIVE
--- NOTE | 2018-09-28 22:34 | RADIOLOGY REPORT (SQ) ---
EXAM DESCRIPTION: US LIMITED COMPLETED DATE/TME: 09/28/2018 21:46 CLINICAL HISTORY: 27 years, Female, pelvic pressure; ; h/o oliohydramnios COMPARISON: Prior ultrasound 08/22/2018 TECHNIQUE: Limited obstetric ultrasound in a second/third trimester patient LIMITATIONS: None. FINDINGS: There is a single, live intrauterine gestation in the cephalic presentation. Cervical length is 3.0 cm. heart tones were obtained at 155 bpm. A detailed anatomic assessment was not performed. However, the site safety coordinator was unable to detect significant amniotic fluid volume, consistent with severe oligohydramnios. IMPRESSION: Severe oligohydramnios. Single, live intrauterine gestation in the cephalic presentation. copyright 2010 [employer]- All Rights Reserved
[2018-09-28] MEDS: RINGERS SOLUTION,LACTATED 2,000 ML IV PRN ×2 (22:38→23:57)
[2018-09-28] MEDS ORDERED: BETAMET ACET/BETAMET NA INJ 6 MG/1 ML ONE (23:26)
[2018-09-28] MEDS ORDERED: BETAMET ACET/BETAMET NA INJ 6 MG/1 ML IM ONE (23:59)
--- NOTE | 2018-09-29 01:41 | RADIOLOGY REPORT (SQ) ---
EXAM DESCRIPTION: US BIOPHYSICAL PROFILE WITHOUT NON STRESS TEST COMPLETED DATE/TME: 09/28/2018 00:00 CLINICAL HISTORY: 27 years, Female, Determine well-being TECHNIQUE: Limited Transabdominal ultrasound for assessment of biophysical profile. FINDINGS: The fetus is in cephalic position. A heart rate of 150 beats/minute is noted. The amniotic fluid index is 2 centimeters. The biophysical profile was calculated using amniotic fluid volume, tone, breathing and movement. The biophysical profile score for this fetus is 2 out of a maximum attainable score of 8, suggestive of normal biophysical profile. IMPRESSION: Normal biophysical profile score of eight out of eight.
--- NOTE | 2018-09-29 06:37 | L&D Progress Notes ---
PROGRESS NOTES Datetime Report Generated by KRISTINE: 09/29/2018 06:37 PROGRESS NOTE Impression Other: pelvic pressure, no care Procedures- Other: monitoring Plan Other: US Vital Signs : Reviewed; Within Normal Limits Comment: Pt c/o pelvic pressure. Exited from [facility] for PNC. Was seen at L_D in Aug 22, 2018 and underwent US which showed WILLIAMS 3.8 cm. Pt had appt w/ [place] this week and did not go. Ordered US for cervical length and WILLIAMS. Cervix 3.2 cm and WILLIAMS reported as so low that is was unmeasureable. I was called by the Radiologist, who gave me this report. I then ordered Beatmethasone. I wanted to transfer the pt to [facility], after I obtained a BPP to verify pt stability. When we ordered the BPP, the Tech said that she did not measure the amniotic fluid, only the CL. I requested the BPP to be done at bedside. When she arrived, I could subjectively see that her WILLIAMS was normal. Good movement was noted. The measurement was 11.2 cm. The Radiologist then made an addendum to the report. Pt discharged. LAST VAGINAL EXAM-NURSING Dilitation: 0.5 Effacement: 25 Station: -3 Contractions: Uterine Irritability noted. Contractions: Uterine Irritability noted. Contractions: Uterine Irritability noted Contractions: Uterine Irritability noted. Contractions: Uterine Irritability Noted Contractions: Uterine Irritability noted Contractions: Uterine Irritability noted. Contractions: Utene Irritability noted. FETUS A FHR - Baseline: 140s Monitoring: External US Accelerations: 10X10 Decelerations: None FHR Category: Category I : 27.3 SIGNATURE SIGNATURE: [id number] Signature: with User ID: TeEure
== END 2018-09-29 01:54 | disposition home or self-care (01) ==
LOC: LC 19:48
PROVIDERS: ATTEND Obstetrics & Gynecology
PROC: 4A1HXCZ Monitoring of Products of Conception, Cardiac Rate, External Approach (ICD-10-PCS; principal; 2018-09-28)
DX: O41.03X0 Oligohydramnios, third trimester, not applicable or unspecified (principal); O09.33 Supervision of pregnancy with insufficient antenatal care, third trimester; Z3A.29 29 weeks gestation of pregnancy
CPT/HCPCS: 59899; 96372; 81001; 80307; 76815; 76819; G0480 ×2; J0702; 80349

== ENCOUNTER 2018-10-23 18:32 | Outpatient (CLI) | payer MEDICAID ==
[2018-10-23 19:32] LABS: APPEARANCE,URINE CLEAR; BILIRUBIN,URINE NEGATIVE (NEGATIVE); COLOR,URINE YELLOW; GLUCOSE, URINE NEGATIVE (NEGATIVE); KETONES,URINE NEGATIVE (NEGATIVE); LEUKOCYTE ESTERASE,URINE SMALL (NEGATIVE); NITRITE,URINE NEGATIVE (NEGATIVE); PROTEIN,URINE NEGATIVE (NEGATIVE); URINE SPECIFIC GRAVITY 1.018; UROBILINOGEN,URINE NEGATIVE mg/dL (<2.0)
[2018-10-23 19:48] LABS: URINE AMPHETAMINES SCREEN NEGATIVE; URINE BARBITURATES SCREEN NEGATIVE; URINE BENZODIAZEPINES SCREEN NEGATIVE; URINE COCAINE SCREEN NEGATIVE; URINE METHADONE SCREEN NEGATIVE; URINE PHENCYCLIDINE SCREEN NEGATIVE
[2018-10-23 19:50] LABS: URINE MARIJUANA (THC) SCREEN UNCONFIRMED POSITIVE
== END 2018-10-23 20:23 | disposition home or self-care (01) ==
LOC: LC 18:32
PROVIDERS: ATTEND Obstetrics & Gynecology Gynecology
PROC: 4A1HXCZ Monitoring of Products of Conception, Cardiac Rate, External Approach (ICD-10-PCS; principal; 2018-10-23)
DX: O09.33 Supervision of pregnancy with insufficient antenatal care, third trimester (principal); O99.333 Smoking (tobacco) complicating pregnancy, third trimester; Z3A.32 32 weeks gestation of pregnancy
CPT/HCPCS: 59025; 80307; 81001

== ENCOUNTER 2018-11-16 18:07 | Outpatient (CLI) | payer MEDICAID ==
[2018-11-16 19:39] LABS: APPEARANCE,URINE CLEAR; BILIRUBIN,URINE NEGATIVE (NEGATIVE); COLOR,URINE YELLOW; GLUCOSE, URINE 150 mg/dL (NEGATIVE); KETONES,URINE NEGATIVE (NEGATIVE); LEUKOCYTE ESTERASE,URINE NEGATIVE (NEGATIVE); NITRITE,URINE NEGATIVE (NEGATIVE); PROTEIN,URINE NEGATIVE (NEGATIVE); URINE SPECIFIC GRAVITY 1.015; UROBILINOGEN,URINE NEGATIVE mg/dL (<2.0)
[2018-11-16 20:05] LABS: URINE AMPHETAMINES SCREEN NEGATIVE; URINE BARBITURATES SCREEN NEGATIVE; URINE BENZODIAZEPINES SCREEN NEGATIVE; URINE COCAINE SCREEN NEGATIVE; URINE METHADONE SCREEN NEGATIVE; URINE PHENCYCLIDINE SCREEN NEGATIVE
[2018-11-16 20:12] LABS: URINE MARIJUANA (THC) SCREEN UNCONFIRMED POSITIVE
--- NOTE | 2018-11-16 20:35 | RADIOLOGY REPORT (SQ) ---
EXAM DESCRIPTION: US LIMITED COMPLETED DATE/TME: 11/16/2018 00:00 CLINICAL HISTORY: 28 years, Female, infrequent care COMPARISON: None. TECHNIQUE: LIMITATIONS: None. FINDINGS: There is a live 33 week 5 day +/- 3 week IUP in vertex presentation. cardiac activity was measured at 149 bpm. The placenta is posterior in location with no evidence of abruption or previa. There is a normal amount of amniotic fluid. The estimated weight is 2319 g. Cervical length could not be obtained, because the cervix was not adequately visualized. IMPRESSION: Unremarkable IUP. copyright 2010 [employer]- All Rights Reserved
== END 2018-11-16 20:23 | disposition home or self-care (01) ==
LOC: LC 18:07
PROVIDERS: ATTEND Obstetrics & Gynecology
PROC: 4A1HXCZ Monitoring of Products of Conception, Cardiac Rate, External Approach (ICD-10-PCS; principal; 2018-11-16)
DX: O47.03 False labor before 37 completed weeks of gestation, third trimester (principal); O99.333 Smoking (tobacco) complicating pregnancy, third trimester; O09.33 Supervision of pregnancy with insufficient antenatal care, third trimester; Z3A.33 33 weeks gestation of pregnancy
CPT/HCPCS: 59025; 81001; 80307; 76815; G0480 ×2; 80349

== ENCOUNTER 2018-12-01 10:58 | Outpatient (CLI) | payer MEDICAID ==
[2018-12-01 11:37] LABS: APPEARANCE,URINE CLEAR; BILIRUBIN,URINE NEGATIVE (NEGATIVE); COLOR,URINE YELLOW; GLUCOSE, URINE NEGATIVE (NEGATIVE); KETONES,URINE NEGATIVE (NEGATIVE); LEUKOCYTE ESTERASE,URINE NEGATIVE (NEGATIVE); NITRITE,URINE NEGATIVE (NEGATIVE); PROTEIN,URINE NEGATIVE (NEGATIVE); URINE SPECIFIC GRAVITY 1.006; UROBILINOGEN,URINE NEGATIVE mg/dL (<2.0)
[2018-12-01 11:56] LABS: URINE AMPHETAMINES SCREEN NEGATIVE; URINE BARBITURATES SCREEN NEGATIVE; URINE BENZODIAZEPINES SCREEN NEGATIVE; URINE COCAINE SCREEN NEGATIVE; URINE METHADONE SCREEN NEGATIVE; URINE PHENCYCLIDINE SCREEN NEGATIVE
[2018-12-01 11:59] LABS: URINE MARIJUANA (THC) SCREEN UNCONFIRMED POSITIVE
== END 2018-12-01 12:22 | disposition home or self-care (01) ==
LOC: LC 10:58
PROVIDERS: ATTEND Obstetrics & Gynecology
PROC: 4A1HXCZ Monitoring of Products of Conception, Cardiac Rate, External Approach (ICD-10-PCS; principal; 2018-12-01)
DX: O47.1 False labor at or after 37 completed weeks of gestation (principal); Z3A.37 37 weeks gestation of pregnancy
CPT/HCPCS: 80307; 81005

== ENCOUNTER 2018-12-05 22:08 | Inpatient (IN) | payer MEDICAID ==
--- NOTE | 2018-12-05 22:10 | Non Stress Test Report ---
Non Stress Test Datetime Report Generated by CPN: 12/05/2018 22:10 DEMOGRAPHIC EGA NST: 37.6 EGA NST: 35.5 INDICATION Indication for Study: Decreased Movement Indication for Study: Other Indication for Study (NST) Other: LC MONITORING Monitor Explained: Monitor Explained; Test Explained; Patient Verbalized Understanding Monitor Explained: Monitor Explained; Test Explained; Patient Verbalized Understanding Time on Monitor: 12/01/2018 11:13 Time on Monitor: 11/16/2018 18:24 Time off Monitor: 12/01/2018 12:07 Time off Monitor: 11/16/2018 19:05 NST Duration: 54 NST Duration: 41 NST INTERVENTIONS NST Interventions: PO Hydration NST Interventions: None Physician Notified NST: Dr. Mariee Physician Notified NST: Adán BABY A: [id number] BABY A Movement : Present Movement : Present Contraction Frequency : Irregular Contraction Frequency : rare FHR Baseline : 120 FHR Baseline : 140 Accelerations : 15X15 Accelerations : 15X15 Decelerations : None Decelerations : None Variability : Moderate 6-25bpm Variability : Moderate 6-25bpm NST Review: Meets Criteria for Reactive NST NST Review: Meets Criteria for Reactive NST NST Review and Verified By : Vanessa Hogan RNC NST Review and Verified By : el rnc-ob NST Results: Reactive NST Results: Reactive NST REPORT Report Trigger: Send Report
[2018-12-05] MEDS ORDERED: LIDOCAINE 1% INJ-PF (10 MG/ML) 30 ML SDV ONE (22:18)
[2018-12-05] MEDS ORDERED: MISOPROSTOL 0.2 MG TABLET ONE (22:18)
[2018-12-05] MEDS ORDERED: OXYTOCIN/NORMAL SALINE 20 UNIT/1,000 ML RTUINJ ONE (22:19)
[2018-12-05] MEDS ORDERED: PENICILLIN G POTASSIUM 5,000,000 UNIT in DEXTROSE 5%-WATER 100 ML IV ONE (22:22)
[2018-12-05] MEDS ORDERED: PENICILLIN G-K 5 MILLION UNIT VIAL ONE (22:23)
[2018-12-05 22:56] LABS: APPEARANCE,URINE CLOUDY; BILIRUBIN,URINE NEGATIVE (NEGATIVE); GLUCOSE, URINE NEGATIVE (NEGATIVE); KETONES,URINE NEGATIVE (NEGATIVE); LEUKOCYTE ESTERASE,URINE MODERATE (NEGATIVE); NITRITE,URINE NEGATIVE (NEGATIVE); PROTEIN,URINE 30 mg/dL (NEGATIVE); URINE SPECIFIC GRAVITY 1.021
--- NOTE | 2018-12-05 22:58 | Admission Physical ---
Datetime Report Generated by CPN: 12/05/2018 22:57 CURRENT ADMISSION Chief Complaint: Uterine Contractions Indication for Induction: Not Applicable Admit Impression : Term, Intrauterine Admit Plan: Admit to Unit; Initiate Labor Protocol ALLERGIES Medication Allergies: No Medication Allergies: No Known Allergies (09/28/2018) Latex: No Latex Allergies Food Allergies: NKA Environmental Allergies: NKA OBSTETRICAL HISTORY EDC: 12/16/2018 00:00 : 8 Para: 5 Term: 5 SAB: 2 Livin Cesareans: 0 Gestational Diabetes: Yes Rh Sensitization: No Incompetent Cervix: No MICHAEL: No Infertility: No ART Treatment: No Uterine Anomaly: No IUGR: Yes Hx Previous C/S: No Macrosomia: No Hx Loss/Stillborn: Yes PIH: No Hx : No Placenta Previa/Abruption: No Depression/PP Depression: No PTL/PROM: No Post Hemorrhage: No Current Procedures: Ultrasound; NST; BPP Obstetrical History Comments: G1 - 2004 Baby Boy @ 41 weeks w/ epidural G2 - 2005 Baby Girl @ 40 weeks w/ epidural G3 - 2006 @ 39 weeks w/ no pain medication G4 - 2008 Baby Girl @ 38 weeks w/ no pain medication G5 - 2014 EAB @ 17 w/ epidural G6 - 2016 Baby Girl @ 37 weeks G7 - 2017 SAB @ 8 weeks G8 - Current- GDM? pt states stillborn at 2something weeks SEE RECORDS Alcohol: No Marijuana : Yes Cocaine: No Other Illicit Drugs: No Cigarettes: Current Everyday Smoker. [id number] MEDICAL HISTORY Diabetes: No Blood Transfusion: No Pulmonary Disease (Asthma, TB): No Breast Disease: No Hypertension: No Desk Editor Surgery: No Heart Disease: No Hosp/Surgery: Yes Autoimmune Disorder: No Anesthetic Complications: No Kidney Disease: No Abnormal Pap Smear: Yes Neuro/Epilepsy: No Psychiatric Disorders: No Other Medical Diseases: No Hepatitis/Liver Disease: No Significant Family History: No Varicosities/Phlebitis: No Trauma/Violence : No Thyroid Dysfunction: No Medical History Comments: childbirth INFECTIOUS HISTORY Gonorrhea: No Genital Herpes: No Chlamydia: No Tuberculosis: No Syphilis: No Hepatitis: No HIV/AIDS Exposure: No Rash or Viral Illness: No HPV: No PHYSICAL EXAM General: Normal HEENT: Normal Neurologic: Normal Thyroid: Normal Heart: Normal Lungs: Normal Breast: Deferred Back: Normal Abdomen: Normal Genitourinary Exam: Normal Extremities: Normal DTRs: Normal Pelvic Type: Adequate Vital Signs: Reviewed VAGINAL EXAM Dilatation: 5 Effacement: 80 Station: -1 MEMBRANES Pooling: Negative Membranes: Intact FETUS A EGA: 28.6 Monitoring: External US FHR- Baseline: 120 Variability: Moderate 6-25bpm Decelerations: None FHR Category: Category I Presentation: Vertex Admit Comment: admit PLANS FOR LABOR AND DELIVERY Labor and Delivery: None Pain Management: Epidural Feeding Preference: Formula Benefit of Breast Feed Discussed: Yes Circumcision: N/A INFORMED CONSENT Signature: with User ID: [email or web address]
[2018-12-05 23:01] LABS: COLOR,URINE YELLOW
[2018-12-05] MEDS ORDERED: FENTANYL/BUPIVACAINE/NS/PF 0 MCG/0 ML RTUINJ EPI ONE (23:12)
[2018-12-05] MEDS ORDERED: EPHEDRINE SULFATE INJ 50 MG/1 ML AMPULE ONE (23:12)
[2018-12-05] MEDS ORDERED: BUPIVACAINE HCL 0.25 % INJ/PF (2.5 MG/1 ML) 30 ML VIAL ONE (23:12)
[2018-12-05 23:13] LABS: ABSOLUTE LYMPHOCYTES (AUTO) 2.1 10^3/uL (0.5-4.7); ABSOLUTE MONOCYTES (AUTO) 0.6 10^3/uL (0.1-1.4); ABSOLUTE NEUT (AUTO) 7.1 10^3/uL (1.7-8.2); BASOPHILS % (AUTO) 0.4 % (0-2); EOSINOPHILS % (AUTO) 0.1 % (0-6); HEMOGLOBIN 10.5 g/dL (12.0-15.5); LYMPHOCYTES % (AUTO) 21.5 % (13-45); MEAN CORPUSCULAR HGB CONC 32.8 g/dL (32.0-36.0); MEAN CORPUSCULAR VOLUME 70 fl (80-97); MONOCYTES % (AUTO) 5.7 % (3-13); PLATELET COUNT 347 10^3/uL (150-450); RED BLOOD COUNT 4.54 10^6/uL (3.72-5.28); RED CELL DISTRIBUTION WIDTH 15.1 % (11.5-14.0); SEGMENTED NEUTROPHILS % (AUTO) 72.3 % (42-78); TOTAL CELLS COUNTED % (AUTO) 100 %; WHITE BLOOD COUNT 9.8 10^3/uL (4.0-10.5)
[2018-12-05 23:22] LABS: URINE AMPHETAMINES SCREEN NEGATIVE; URINE BARBITURATES SCREEN NEGATIVE; URINE BENZODIAZEPINES SCREEN NEGATIVE; URINE COCAINE SCREEN NEGATIVE; URINE METHADONE SCREEN NEGATIVE; URINE PHENCYCLIDINE SCREEN NEGATIVE
[2018-12-05 23:31] LABS: URINE MARIJUANA (THC) SCREEN UNCONFIRMED POSITIVE
[2018-12-06] MEDS ORDERED: DIBUCAINE 1% OINTMENT 56 GM TP PRN (00:17)
[2018-12-06] MEDS ORDERED: PSEUDOEPHEDRINE HCL 30 MG TABLET PO PRN (00:17)
[2018-12-06] MEDS ORDERED: MAGNESIUM HYDROXIDE SUSP 30 ML UDCUP PO PRN (00:17)
[2018-12-06] MEDS ORDERED: PROMETHAZINE HCL 25 MG SUPP.RECT PR PRN (00:17)
[2018-12-06] MEDS ORDERED: NA PHOS,M-B/NA PHOS,DI-BA (ADULT) 133 ML ENEMA PR PRN (00:17)
[2018-12-06] MEDS ORDERED: ZOLPIDEM TARTRATE 5 MG TABLET PO PRN (00:17)
[2018-12-06] MEDS ORDERED: OXYTOCIN/NORMAL SALINE 20 UNIT/1,000 ML RTUINJ IV PRN (00:17)
[2018-12-06] MEDS ORDERED: BENZOCAINE/MENTHOL AEROSOL SPRAY 56 ML TOP PRN (00:17)
[2018-12-06] MEDS ORDERED: GLYCERIN/WITCH HAZEL LEAF 1 EACH MED..PAD TP PRN (00:17)
[2018-12-06] MEDS ORDERED: PROMETHAZINE HCL INJ 25 MG/1 ML VIAL IV PRN (00:17)
[2018-12-06] MEDS ORDERED: MEASLES,MUMPS&RUBELLA VACC/PF 0.5 ML VIAL SUBCUT PRN (00:17)
[2018-12-06] MEDS ORDERED: PROMETHAZINE HCL 25 MG TABLET PO PRN (00:17)
[2018-12-06] MEDS ORDERED: ACETAMINOPHEN 650 MG SUPP.RECT PR PRN (00:17)
[2018-12-06] MEDS ORDERED: DIPH/PERTUSS(ACELL)/TETANUS VAC/PF 0.5 ML SYR (>=10YO) IM PRN (00:17)
[2018-12-06] MEDS ORDERED: DIPHENHYDRAMINE HCL 25 MG CAPSULE PO PRN (00:17)
[2018-12-06] MEDS ORDERED: ACETAMINOPHEN WITH CODEINE #3 TABLET ONE ×3 (00:22→08:01)
[2018-12-06] MEDS: ACETAMINOPHEN WITH CODEINE #3 TABLET PO PRN ×3 (00:27→21:25)
[2018-12-06 00:34] LABS: RUBELLA INTERPRETATION POSITIVE
[2018-12-06] MEDS ORDERED: IBUPROFEN 800 MG TABLET ONE ×3 (01:20→14:38)
--- NOTE | 2018-12-06 05:00 | Warning Signs in Babies ---
VOD Warning Signs Datetime Report Generated by [facility]: 12/06/2018 05:00 VOD#608 -Warning Signs in Babies: Needs to be viewed. (09/28/2018 21:24:Leana Vences RN)
--- NOTE | 2018-12-06 05:04 | Delivery Summary ---
Del Sum A-C Datetime Report Generated by CPN: 12/06/2018 05:04 DELIVERY PERSONNEL DELIVERY PERSONNEL: [id number] Delivery Doctor:: Bc Mccain MD Labor and Delivery Nurse:: Leana Vences RN Labor and Delivery Nurse:: Ivon Fields RN Nursery Nurse:: Amrita Myrick RN Polishing Machine Operator Helper/EXTERN: Olinda Green, ST MATERNAL INFORMATION Delivery Anesthesia: None Medications After Delivery: Pitocin Drip 20 Units/1000ml NSS Estimated Blood Loss (ml): 250 Maternal Complications: Precipitous Labor (<3hrs) Complication Details: limited care LABOR SUMMARY EDC: 12/16/2018 00:00 No. Babies in Womb: 1 Attempted: No Labor Anesthesia: None LABOR INFORMATION Reason for Induction: Not Applicable Onset of Labor: 12/05/2018 22:21 Complete Dilatation: 12/06/2018 23:38 Oxytocin: N/A Group B Beta Strep: unknown Antibiotics # of Doses: 1 Steroids Given: None Reason Steroids Not Administered: Not Applicable MEMBRANES Membranes Rupture Method: Spontaneous Rupture of Membranes: 12/05/2018 23:18 Length of Rupture (hr): 0.82 Amniotic Fluid Color: Clear Amniotic Fluid Amount: Small Amniotic Fluid Odor: Normal STAGES OF LABOR Stage 1 hr: 25 Stage 1 min: 17 Stage 2 hr: -23 Stage 2 min: -31 Stage 3 hr: 0 Stage 3 min: 3 Total Time in Labor hr: 1 Total Time in Labor min: 49 VAGINAL DELIVERY Episiotomy: None Laceration #1: None Laceration Extension #1: N/A CSECTION DELIVERY Primary Indication: N/A CSection Incision: N/A BABY A INFORMATION Delivery Date/Time: 12/06/2018 00:07 Method of Delivery: Vaginal Born in Route : No : N/A Forceps: N/A Vacuum Extraction: N/A Shoulder Dystocia : No PRESENTATION/POSITION BABY A Presentation: Cephalic Cephalic Presentation: N/A Vertex Position: Left Occipital Anterior Breech Presentation: N/A PLACENTA INFORMATION BABY A Placenta Delivery Time : 12/06/2018 00:10 Placenta Method of Delivery: Spontaneous Placenta Status: Delivered SCORES BABY A Heart Rate 1 min: >100 bpm Resp Effort 1 min: Good Cry Reflex Irritability 1 min: Cough or Sneeze or Pulls Away Muscle Tone 1 min: Active Motion Color 1 min: Body [place], Extremities Blue SCORE 1 MIN: 9 Heart Rate 5 min: >100 bpm Resp Effort 5 min: Good Cry Reflex Irritability 5 min: Cough or Sneeze or Pulls Away Muscle Tone 5 min: Active Motion Color 5 min: Body [place], Extremities Blue SCORE 5 MIN: 9 INFANT INFORMATION BABY A Gestational Age at Delivery: 38.3 Gestational Status: Early Term- 37- 38.6 Weeks Infant Outcome : Liveborn Infant Condition : Stable Infant Sex: Female IDENTIFICATION BABY A Verification Date/Time: 12/06/2018 00:19 ID Band Number: [id number] Mother's Name Verified: Yes RN Verifying : C. Aliciailin, RN. A. Killinger, RN WEIGHT/LENGTH BABY A Birthweight (gm): 2977 Infant Weight (lb): 6 Weight (oz): 9 Infant Length (in): 18.50 Infant Length (cm): 46.99 CORD INFORMATION BABY A No. Cord Vessels: 3 Nuchal Cord : N/A Cord Blood Taken: Yes-For Storage (Mom's Blood type +) Infant Suction: None ASSESSMENT BABY A Complications: None Physical Findings at Delivery: Within Normal Limits Infant Respirations: Appears Normal Skin to Skin: Yes Skin to Skin Time (min): 5 mins Transferred To: Remains with Mother SIGNATURES Signature: with User ID: [email or web address]
[2018-12-06] MEDS: IBUPROFEN 800 MG TABLET PO SCH ×3 (08:03→22:10)
[2018-12-06] MEDS: PENICILLIN G POTASSIUM 2,500,000 UNIT in DEXTROSE 5%-WATER 50 ML IV SCH ×3 (08:52→16:57)
[2018-12-06] MEDS ORDERED: SENNOSIDES/DOCUSATE 8.6-50 MG 1 EACH TABLET ONE (10:34)
[2018-12-06] MEDS ORDERED: DOCUSATE SODIUM 100 MG CAPSULE ONE (10:34)
[2018-12-06] MEDS ORDERED: FAMOTIDINE 20 MG TABLET ONE (10:34)
[2018-12-06] MEDS ORDERED: PRENATAL VITAMIN W DHA CAPSULE PO ONE (10:34)
[2018-12-06] MEDS ORDERED: FERROUS SULFATE 325 MG TABLET PO ONE (10:35)
[2018-12-06] MEDS: SENNOSIDES/DOCUSATE 8.6-50 MG 1 EACH TABLET PO SCH (10:38)
[2018-12-06] MEDS: PRENATAL VITAMIN W DHA CAPSULE PO SCH (10:38)
[2018-12-06] MEDS: FERROUS SULFATE 325 MG TABLET PO SCH ×2 (10:38→17:45)
[2018-12-06] MEDS: FAMOTIDINE 20 MG TABLET PO SCH ×2 (10:39→22:12)
[2018-12-06] MEDS: DOCUSATE SODIUM 100 MG CAPSULE PO SCH ×2 (10:39→17:45)
[2018-12-07] MEDS: IBUPROFEN 800 MG TABLET PO SCH ×3 (05:04→21:34)
[2018-12-07 07:12] LABS: HEPATITS B SURFACE ANTIGEN Negative (Negative)
[2018-12-07 07:33] LABS: HEMATOCRIT 31.1 % (36.0-47.0); MEAN CORPUSCULAR HGB CONC 32.2 g/dL (32.0-36.0); MEAN CORPUSCULAR VOLUME 71 fl (80-97); PLATELET COUNT 310 10^3/uL (150-450); RED BLOOD COUNT 4.37 10^6/uL (3.72-5.28); RED CELL DISTRIBUTION WIDTH 15.1 % (11.5-14.0); WHITE BLOOD COUNT 8.4 10^3/uL (4.0-10.5)
[2018-12-07 07:40] LABS: HEPATITIS C VIRUS AB <0.1 s/co ratio (0.0-0.9)
--- NOTE | 2018-12-07 09:31 | PDOC PROGRESS REPORT ---
Subjective-OB Progress Note for:: 12/07/18 Subjective: PPD 1. Pt doing well, no concerns. She reports light bleeding, regular diet and voiding without difficulty. Physical Exam (OB) Vital Signs: Temp Pulse Resp BP Pulse Ox 98.3 F 58 L 18 134/80 H 98 12/07/18 08:06 12/07/18 08:06 12/07/18 08:06 12/07/18 08:06 12/07/18 08:06 Intake & Output 12/06/18 12/07/18 12/08/18 06:59 06:59 06:59 Weight 74 kg - PIH/Pre-Eclampsia DTR's: 2 + Headache: Present Epigastric Pain: No Visual Changes: No - Lochia Lochia Amount: Scant < 10 ml Lochia Color: Rubra/Red - Abdomen Description: Soft, Round Hernia Present: No Fundal Description: Firm Fundal Height: u/u - u/2 Objective-Diagnostic Laboratory: 12/07/18 07:01 12/07/18 07:01 WBC 8.4 RBC 4.37 Hgb 10.0 L Hct 31.1 L MCV 71 L MCH 23.0 L MCHC 32.2 RDW 15.1 H Plt Count 310 Assessment and Plan(PN) - Assessment and Plan (1) Term Is this a current diagnosis for this admission?: Yes (2) Vaginal delivery Is this a current diagnosis for this admission?: Yes - Time Spent with Patient Time with patient: Less than 15 minutes Medications reviewed and adjusted accordingly: Yes - Disposition Anticipated Discharge: Home Within: within 24 hours
[2018-12-07] MEDS: PRENATAL VITAMIN W DHA CAPSULE PO SCH (09:45)
[2018-12-07] MEDS: FERROUS SULFATE 325 MG TABLET PO SCH ×2 (09:46→17:53)
[2018-12-07] MEDS: DOCUSATE SODIUM 100 MG CAPSULE PO SCH ×2 (09:46→17:53)
[2018-12-07] MEDS: SENNOSIDES/DOCUSATE 8.6-50 MG 1 EACH TABLET PO SCH (09:46)
[2018-12-07] MEDS: FAMOTIDINE 20 MG TABLET PO SCH ×2 (09:46→21:33)
[2018-12-07] MEDS: ACETAMINOPHEN WITH CODEINE #3 TABLET PO PRN (18:11)
[2018-12-08] MEDS: IBUPROFEN 800 MG TABLET PO SCH (06:34)
--- NOTE | 2018-12-08 08:20 | PDOC DISCHARGE SUMMARY ---
Final Diagnosis Discharge Date: 12/08/18 - Final Diagnosis (1) Term Is this a current diagnosis for this admission?: Yes (2) Vaginal delivery Is this a current diagnosis for this admission?: Yes Discharge Data - Discharge Medication Home Medications: Vit/Iron Fum/Folic AC [ Tablet] 1 tab PO DAILY 07/18/16 Reason(s) for Admission: Onset of Labor Procedures: NST Intrapartum Procedure(s): Spontaneous Vaginal Delivery - Diagnosis Test Laboratory: Temp Pulse Resp BP Pulse Ox 98.3 F 58 L 18 134/80 H 98 12/07/18 08:06 12/07/18 08:06 12/07/18 08:06 12/07/18 08:06 12/07/18 08:06 12/05/18 12/05/18 12/07/18 22:23 22:50 07:01 RBC 4.54 4.37 Hgb 10.5 L 10.0 L Hct 32.0 L 31.1 L Urine Opiates Screen NEGATIVE - Discharge information/Instructions Discharge Activity: Balance Activity w/Rest, Pelvic Rest Discharge Diet: Regular Disposition: HOME, SELF-CARE Follow up with: [facility] in: 4, Weeks
[2018-12-08 08:36] VITALS: BP 120/66
[2018-12-08] MEDS: ACETAMINOPHEN WITH CODEINE #3 TABLET PO PRN (09:31)
[2018-12-08] MEDS: DOCUSATE SODIUM 100 MG CAPSULE PO SCH (10:41)
[2018-12-08] MEDS: FERROUS SULFATE 325 MG TABLET PO SCH (10:41)
[2018-12-08] MEDS: PRENATAL VITAMIN W DHA CAPSULE PO SCH (10:41)
[2018-12-08] MEDS: FAMOTIDINE 20 MG TABLET PO SCH (10:42)
[2018-12-08] MEDS: SENNOSIDES/DOCUSATE 8.6-50 MG 1 EACH TABLET PO SCH (10:42)
== END 2018-12-08 14:42 | disposition home or self-care (01) | DRG 806 ==
LOC: LC 22:08 → LR 22:19 → 2N 12-06 15:01
PROVIDERS: ADMIT Obstetrics & Gynecology; ATTEND Obstetrics & Gynecology
PROC: 10E0XZZ Delivery of Products of Conception, External Approach (ICD-10-PCS; principal; 2018-12-06)
DX: O24.429 Gestational diabetes mellitus in childbirth, unspecified control (principal); O99.324 Drug use complicating childbirth; Z37.0 Single live birth; F12.90 Cannabis use, unspecified, uncomplicated; O99.334 Smoking (tobacco) complicating childbirth; O62.3 Precipitate labor; F17.210 Nicotine dependence, cigarettes, uncomplicated; Z3A.38 38 weeks gestation of pregnancy
CPT/HCPCS: 36415; 80307; 80349; 81005; 85025; 85027; 86592; 86701; 86762; 86803; 86804; 86850; 86900; 86901; 87340; G0480; J2540; J2590; J3010; J3490

== ENCOUNTER 2019-10-05 10:54 | Emergency (ER) | payer SELFPAY ==
[2019-10-05] MEDS ORDERED: KETOROLAC TROMETHAMINE 60 MG/2 ML SDV IM ONE (11:17)
--- NOTE | 2019-10-05 11:22 | ER Document Report ---
ED General - General Stated Complaint: BODY PAIN Time Seen by Provider: 10/05/19 11:17 Primary Care Provider: MERCEDES CENTENO MD [Primary Care Provider] - Follow up in 3-5 days Notes: 28 y/o female presents with generalized body ache, fever ("100 and something"), sore throat, chills, and coughing up sputum since yesterday. Pt states last medication she took was ibuprofen 800 mg last night. States it hurts to swallow. Denies n/v/d or abdominal pain. TRAVEL OUTSIDE OF THE [place] IN LAST 30 DAYS: No - Related Data Allergies/Adverse Reactions: No Known Allergies Allergy (Verified 10/05/19 11:19) Past Medical History - Social History Smoking Status: Unknown if Ever Smoked Family History: Reviewed & Not Pertinent Review of Systems - Review of Systems Notes: Constitutional: Positive for fever. HENT: Positive for sore throat and cough. Eyes: Negative for visual changes. Cardiovascular: Negative for chest pain. Respiratory: Negative for shortness of breath. Gastrointestinal: Negative for abdominal pain, vomiting or diarrhea. Genitourinary: Negative for dysuria. Musculoskeletal: Positive for myalgias. Negative for back pain. Skin: Negative for rash. Neurological: Negative for headaches, weakness or numbness. 10 point ROS negative except as marked above and in HPI. Physical Exam - Vital signs Vitals: Temp Pulse Resp BP Pulse Ox 98.4 F 98 16 130/85 H 99 10/05/19 11:01 10/05/19 11:01 10/05/19 11:01 10/05/19 11:01 10/05/19 11:01 - Notes Notes: GENERAL: Well-appearing, well-nourished and in no acute distress. HEAD: Atraumatic, normocephalic. EYES: Pupils equal round and reactive to light, extraocular movements intact, sclera anicteric, conjunctiva are normal. ENT: Nares patent, 1+ tonsilar hypertrophy with exudates. No trismus, no muffled voice, uvula midline without edema. No obvious COUNTER POCKET TRIMMER. Moist mucous membranes. NECK: Normal range of motion, supple without lymphadenopathy or JVD. LUNGS: Breath sounds clear to auscultation bilaterally and equal. No wheezes rales or rhonchi. HEART: Regular rate and rhythm without murmurs, rubs or gallops. EXTREMITIES: Normal range of motion, no pitting or edema. No clubbing or cyanosis. NEUROLOGICAL: Cranial nerves II through XII grossly intact. Normal speech, normal gait. PSYCH: Normal mood, normal affect. SKIN: Warm, Dry, normal turgor, no rashes or lesions noted. Course - Re-evaluation Re-evalutation: 10/05/19 28 y/o nontoxic well appearing female presents with URI/flu-like symptoms. Speaks clear sentences without muffled voice. No hypoxia, no tachycardia, afebrile. Uvula midline without edema. Tonsilar hypertrophy with exudates. No obvious COUNTER POCKET TRIMMER. Lungs clear to auscultation bilaterally. RRR. PE otherwise unremarkable. Flu test, strep test, and chest x-ray ordered. 10/05/19 12:23 Positive for flu A. Strep negative. CXR negative. 10/05/19 12:58 Discussed all results with pt. Discussed Tamiflu including side effects and use and pt states she wants a prescription for it. Strict return precautions given. Pt also requesting script for ibuprofen. Pt given close follow up with PCP. Pt voices understanding and agrees with plan of care. - Vital Signs Vital signs: Temp Pulse Resp BP Pulse Ox 98.4 F 98 16 130/85 H 99 10/05/19 11:01 10/05/19 11:01 10/05/19 11:01 10/05/19 11:01 10/05/19 11:01 Discharge - Discharge Clinical Impression: Influenza A Condition: Stable Disposition: HOME, SELF-CARE Instructions: Influenza ([facility]) [id number] Additional Instructions: You have influenza. There is no treatment that is effective for this diagnosis other than supportive care at home. This includes drinking plenty of fluids, using Tylenol or ibuprofen as needed for fever and discomfort, and Zofran as needed for nausea and vomiting. Please follow closely with you primary care physician the next 1-2 days regarding this diagnosis. Return to the emergency department immediately if you began to have persistent vomiting prevents you from being able to keep fluids down for more than 12 hours, you pass out, you began having difficulty breathing, you become confused, or you have any other symptoms that are worrisome to you. Prescriptions: Ondansetron [Zofran Odt 4 mg Tablet] 4 mg PO Q4HP PRN #30 tab.rapdis PRN Reason: Ibuprofen [Motrin 800 mg Tablet] 800 mg PO Q8H PRN #30 tab PRN Reason: Oseltamivir Phosphate [Tamiflu] 75 mg PO BID #10 capsule Forms: Return to Work Referrals: MERCEDES CENTENO MD [Primary Care Provider] - Follow up in 3-5 days
--- NOTE | 2019-10-05 11:55 | RADIOLOGY REPORT (SQ) ---
EXAM DESCRIPTION: CHEST 2 VIEWS COMPLETED DATE/TIME: 10/05/2019 11:40 am REASON FOR STUDY: cough, fever COMPARISON: 2008 TECHNIQUE: Frontal and lateral radiographic views of the chest acquired. NUMBER OF VIEWS: Two view. LIMITATIONS: None. FINDINGS: LUNGS AND PLEURA: No opacities, masses or pneumothorax. No pleural effusion. MEDIASTINUM AND HILAR STRUCTURES: No masses or contour abnormalities. HEART AND VASCULAR STRUCTURES: Heart normal size. No evidence for failure. BONES: No acute findings. HARDWARE: None in the chest. OTHER: No other significant finding. IMPRESSION: NO SIGNIFICANT RADIOGRAPHIC FINDING IN THE CHEST. TECHNICAL DOCUMENTATION: JOB ID: [id number] 2010 [employer]- All Rights Reserved Reading location - IP/workstation name: [email or web address]
[2019-10-05 12:23] LABS: A TYPE INFLUENZA AG POSITIVE (NEGATIVE); B INFLUENZA AG NEGATIVE (NEGATIVE)
[2019-10-05 13:14] VITALS: BP 111/72
== END 2019-10-05 13:12 | disposition home or self-care (01) ==
LOC: ER 10:54
DX: J10.1 Influenza due to other identified influenza virus with other respiratory manifestations (principal); R50.9 Fever, unspecified; R05 Cough; M79.10 Myalgia, unspecified site; J35.1 Hypertrophy of tonsils
CPT/HCPCS: 99283; 96372; 36415; 87070; 87880; 84703; 87077; 87804; 71046; J1885